=== PATIENT | female | born 1940 | race Caucasian/White ===

== ENCOUNTER 2017-12-13 10:26 | Inpatient (IN) | payer OTHER ==
[2017-12-13] MEDS ORDERED: NA CHLORIDE 0.9% 1,000 ML ONE (12:08)
[2017-12-13] MEDS ORDERED: ONDANSETRON 4 MG/2 ML VIAL ONE (12:08)
[2017-12-13] MEDS ORDERED: FAMOTIDINE 20 MG/2 ML VIAL IV ONE (12:08)
[2017-12-13 12:11] LABS: Absolute Lymphocytes (CBC) 1.5 K/uL (0.7-4.9); Absolute Monocytes 0.4 K/uL (0.1-1.3); Absolute Neutrophil 4.4 K/uL (1.8-8.0); Basophils % 0.7 % (0-1.3); Eosinophils % 0.7 % (0-4.4); Hematocrit 41.3 % (36.0-45.0); Lymphocytes % 23.5 % (15.3-44.8); MCH 30.1 pg (27.0-35.0); MCV 90.4 fL (80-100); MPV 9.6 fL (7.6-11.3); Monocytes % 6.8 % (3.3-12.3); RBC Red Blood Cell Count 4.56 M/uL (3.86-4.86)
[2017-12-13 12:15] LABS: Protime INR 0.98
[2017-12-13 12:37] LABS: ALT/SGPT 18 U/L (12-78); AST/SGOT 32 U/L (15-37); Albumin 3.6 g/dL (3.4-5.0); Alkaline Phosphatase 109 U/L (45-117); BUN Blood Urea Nitrogen 20 mg/dL (7-18); Bicarbonate 27 mmol/L (21-32); Bilirubin Direct 0.3 mg/dL (0-0.2); Bilirubin Total 1.2 mg/dL (0.2-1.0); CKMB Creatine Kinase MB < 1.0 ng/mL (0.3-3.6); Creatine Phosphokinase 76 U/L (26-192); Glucose Level 78 mg/dL (74-106); Lipase 324 U/L (73-393); Magnesium 1.9 mg/dL (1.8-2.4); NT PRO-BNP 127 pg/mL (<450); Potassium 3.3 mmol/L (3.5-5.1); Protein, Total 7.3 g/dL (6.4-8.2); Sodium Level 142 mmol/L (136-145)
--- NOTE | 2017-12-13 12:37 | ER ---
Nurse's Notes [facility] Name: Hadley Landaverde Age: 77 yrs Sex: Female : 1940 Arrival Date: 12/13/2017 Time: 10:29 Bed 14 Private MD: out of town, doctor Diagnosis: Vomiting;Weakness;Cystitis;Diarrhea, unspecified;Hypokalemia;Type 2 diabetes mellitus Presentation: 12/13 11:02 Presenting complaint: Patient states: been having this problem for 6 weeks now, nausea, hj no appetite and constipation, went to my PCP, was RTx with stool kit, it didn't help, still having loss of appetite and now with weakness;. Transition of care: patient was not received from another setting of care. Onset of symptoms was December 13, 2017. Risk Assessment: Do you want to hurt yourself or someone else? Patient reports no desire to harm self or others. Initial Sepsis Screen: Does the patient meet any 2 criteria? No. Patient's initial sepsis screen is negative. Does the patient have a suspected source of infection? No. Patient's initial sepsis screen is negative. Care prior to arrival: None. 11:02 Method Of Arrival: Ambulatory 11:02 Acuity: RACHEL 3 hj Triage Assessment: 11:04 General: Appears in no apparent distress. uncomfortable, Behavior is calm, cooperative, hj appropriate for age. Pain: Denies pain. Historical: - Allergies: 11:04 No Known Allergies; hj - Home Meds: 11:04 Unable to obtain [Active]; hj - PMHx: 11:04 allergies; Diabetes - NIDDM; Gout; Hypertension; hj - PSHx: 11:04 Cholecystectomy; Hysterectomy; hj - Immunization history:: Adult Immunizations up to date. - Social history:: Smoking status: Patient/guardian denies using tobacco, Patient/guardian denies using alcohol. - Ebola Screening: : Patient negative for fever greater than or equal to 101.5 degrees Fahrenheit, and additional compatible Ebola Virus Disease symptoms Patient denies exposure to infectious person Patient denies travel to an Ebola-affected area in the 21 days before illness onset. Screenin:04 Abuse screen: Denies threats or abuse. Denies injuries from another. Nutritional hj screening: No deficits noted. Tuberculosis screening: No symptoms or risk factors identified. Fall Risk None identified. Assessment: 11:00 General: Appears in no apparent distress. uncomfortable, Behavior is calm, cooperative, jl7 appropriate for age. Pain: Complains of pain in abdomen Pain does not radiate. Pain currently is 1 out of 10 on a pain scale. Quality of pain is described as "Sore" Pain began 6 weeks ago Is continuous. Neuro: Level of Consciousness is awake, alert, obeys commands, Oriented to person, place, time, situation. Cardiovascular: Heart tones S1 S2 present Patient's skin is warm and dry. Respiratory: Airway is patent Respiratory effort is even, unlabored, Respiratory pattern is regular, symmetrical, Breath sounds are clear bilaterally. Denies shortness of breath. GI: Abdomen is flat, non-distended, Bowel sounds present X 4 quads. Abd is soft X 4 quads Abdomen is tender to palpation X 4 quads. Reports nausea, vomiting, since 1 week. GI: Reports diarrhea, since 6 weeks. Pt's son reports "She had diarrhea for about a month then we took her to the doctor. They gave us a stool kit. Since then she has only had one episode of diarrhea." Pt reports "I've lost 30 pounds in the last 6 weeks.". : No signs and/or symptoms were reported regarding the genitourinary system. EENT: No signs and/or symptoms were reported regarding the EENT system. Derm: Skin is pink, warm \\T\\ dry. 12:00 Reassessment: No changes from previously documented assessment. Patient and/or family jl7 updated on plan of care and expected duration. Pain level reassessed. Patient is alert, oriented x 3, equal unlabored respirations, skin warm/dry/pink. 12:55 Reassessment: Pt finished drinking oral contrast, CT notified. jl7 14:00 Reassessment: Patient and/or family updated on plan of care and expected duration. Pain jl7 level reassessed. Patient is alert, oriented x 3, equal unlabored respirations, skin warm/dry/pink. 15:00 Reassessment: Patient and/or family updated on plan of care and expected duration. Pain jl7 level reassessed. Patient is alert, oriented x 3, equal unlabored respirations, skin warm/dry/pink. 16:06 Reassessment: nurse Rodrigue will call me back to receive the report. mg2 Vital Signs: 11:05 BP 145 / 119; Pulse 88; Resp 18; Temp 98.1(TE); Pulse Ox 98% on R/A; Weight 61.23 kg; hj Height 5 ft. 6 in. (167.64 cm); Pain 0/10; 12:09 BP 159 / 84; Pulse 72; Resp 16; Pulse Ox 98% ; jl7 14:18 BP 157 / 81; Pulse 78; Resp 12; Pulse Ox 97% on R/A; mh5 15:22 BP 150 / 75; Pulse 72; Resp 18; Pulse Ox 97% on R/A; mh5 11:05 Body Mass Index 21.79 (61.23 kg, 167.64 cm) hj ED Course: 10:29 Patient arrived in ED. mr 10:29 out of town, doctor is Private Physician. mr 10:52 Robin Salcido MD is Attending Physician. patria 11:03 Triage completed. hj 11:05 Arm band placed on right wrist. hj 11:05 Patient has correct armband on for positive identification. Placed in gown. Bed in low hj position. Call light in reach. Side rails up X 1. Adult w/ patient. 11:29 Benjie Alicea RN is Primary Nurse. jl7 11:30 Initial lab(s) drawn, by mn, sent to lab. Urine collected: clean catch specimen, jl7 cloudy, tea colored. Inserted saline lock: 22 gauge in left antecubital area, using aseptic technique. Blood collected. 12:29 X-ray completed. Portable x-ray completed in exam room. Patient tolerated procedure sw well. 12:30 XRAY Chest (1 view) In Process Unspecified. EDMS 12:36 Heidi Wagner MD is Hospitalizing Provider. [facility] 13:30 Inserted saline lock: 24 gauge in left hand, using aseptic technique. jl7 13:31 EKG done, by dynamics ax technical architect. reviewed by Robin Salcido MD. at1 15:05 Report given to BRAYAN Carrion. jl7 15:35 Primary Nurse role handed off by Benjie Alicea RN jl7 15:37 Murali Alvarenga RN is Primary Nurse. [facility] 16:35 No provider procedures requiring assistance completed. Patient admitted, IV remains in mg2 place. 17:07 Assisted to bathroom. Cleaned of incontinence. mg2 Administered Medications: 12:15 Drug: NS 0.9% 1000 ml Route: IV; Rate: 1 bolus; Site: left antecubital; 15:01 Follow up: IV Status: Completed infusion jl7 12:16 Drug: Zofran 4 mg Route: IVP; Site: left antecubital; 12:50 Follow up: Response: No adverse reaction; Nausea is decreased jl7 12:19 Drug: Pepcid 20 mg Route: IVP; Site: left antecubital; 12:50 Follow up: Response: No adverse reaction jl7 12:40 Not Given (Duplicate Order): NS 0.9% 1000 ml IV at 125 ml/hr continuous patria 13:02 Drug: Rocephin - (cefTRIAXone) 1 grams Route: IVPB; Infused Over: 30 mins; Site: left jl7 antecubital; 13:04 Follow up: IV Status: Completed infusion jl7 13:30 Follow up: Response: No adverse reaction jl7 13:13 Drug: NS 0.9% with KCl 20 mEq/L 1000 ml Route: IV; Rate: 125 ml/hr; Site: left jl7 antecubital; Outcome: 12:37 Decision to Hospitalize by Provider. patria 16:34 Admitted to Med/surg accompanied by tech, via stretcher, room 212, with chart, Report mg2 called to BRAYAN Husain 16:34 Condition: stable 16:34 Instructed on the need for admit, Demonstrated understanding of instructions. 17:08 Patient left the ED. mg2 Signatures: Dispatcher [employer] EDMS Hetal Gomez, RN Robin Gar ch, MD MD cha Rivera, Maria mr gonzales, Amanda, vocational education professional EKG Tat1 Cindy Nugent Henry RN Chanell Noland Jahala, RN RN jl7 Muarli Alvarenga RN RN mg2
--- NOTE | 2017-12-13 12:37 | EDPHYS ---
Physician Documentation [facility] Name: Hadley Landaverde Age: 77 yrs Sex: Female : 1940 Arrival Date: 12/13/2017 Time: 10:29 Bed 14 Private MD: out of town, doctor ED Physician Robin Salcido HPI: 12/13 11:56 This 77 yrs old Female presents to ER via Ambulatory with complaints of patria Weakness. 11:56 The patient presents to the emergency department with weakness of the. patria Historical: - Allergies: 11:04 No Known Allergies; hj - Home Meds: 11:04 Unable to obtain [Active]; hj - PMHx: 11:04 allergies; Diabetes - NIDDM; Gout; Hypertension; hj - PSHx: 11:04 Cholecystectomy; Hysterectomy; hj - Immunization history:: Adult Immunizations up to date. - Social history:: Smoking status: Patient/guardian denies using tobacco, Patient/guardian denies using alcohol. - Ebola Screening: : Patient negative for fever greater than or equal to 101.5 degrees Fahrenheit, and additional compatible Ebola Virus Disease symptoms Patient denies exposure to infectious person Patient denies travel to an Ebola-affected area in the 21 days before illness onset. ROS: 11:59 Constitutional: Negative for fever, chills, and weight loss, Eyes: Negative for injury, patria pain, redness, and discharge, ENT: Negative for injury, pain, and discharge, Neck: Negative for injury, pain, and swelling, Cardiovascular: Negative for chest pain, palpitations, and edema, Respiratory: Negative for shortness of breath, cough, wheezing, and pleuritic chest pain, Back: Negative for injury and pain, : Negative for injury, bleeding, discharge, and swelling, MS/Extremity: Negative for injury and deformity, Skin: Negative for injury, rash, and discoloration, Psych: Negative for depression, anxiety, suicide ideation, homicidal ideation, and hallucinations, Allergy/Immunology: Negative for hives, rash, and allergies, Endocrine: Negative for neck swelling, polydipsia, polyuria, polyphagia, and marked weight changes. 11:59 Abdomen/GI: Positive for abdominal pain, nausea and vomiting, diarrhea. 11:59 Neuro: Positive for weakness. Exam: 11:59 Constitutional: This is a well developed, well nourished patient who is awake, alert, patria and in no acute distress. Head/Face: Normocephalic, atraumatic. Eyes: Pupils equal round and reactive to light, extra-ocular motions intact. Lids and lashes normal. Conjunctiva and sclera are non-icteric and not injected. Cornea within normal limits. Periorbital areas with no swelling, redness, or edema. ENT: Nares patent. No nasal discharge, no septal abnormalities noted. Tympanic membranes are normal and external auditory canals are clear. Oropharynx with no redness, swelling, or masses, exudates, or evidence of obstruction, uvula midline. Mucous membranes moist. Neck: Trachea midline, no thyromegaly or masses palpated, and no cervical lymphadenopathy. Supple, full range of motion without nuchal rigidity, or vertebral point tenderness. No Meningismus. Chest/axilla: Normal chest wall appearance and motion. Nontender with no deformity. No lesions are appreciated. Cardiovascular: Regular rate and rhythm with a normal S1 and S2. No gallops, murmurs, or rubs. Normal PMI, no JVD. No pulse deficits. Respiratory: Lungs have equal breath sounds bilaterally, clear to auscultation and percussion. No rales, rhonchi or wheezes noted. No increased work of breathing, no retractions or nasal flaring. Back: No spinal tenderness. No costovertebral tenderness. Full range of motion. Female : Normal external genitalia. Skin: Warm, dry with normal turgor. Normal color with no rashes, no lesions, and no evidence of cellulitis. MS/ Extremity: Pulses equal, no cyanosis. Neurovascular intact. Full, normal range of motion. Neuro: Awake and alert, GCS 15, oriented to person, place, time, and situation. Cranial nerves II-XII grossly intact. Motor strength 5/5 in all extremities. Sensory grossly intact. Cerebellar exam normal. Normal gait. Psych: Awake, alert, with orientation to person, place and time. Behavior, mood, and affect are within normal limits. 11:59 Abdomen/GI: Inspection: abdomen appears normal, Bowel sounds: hyperactive, Palpation: mild abdominal tenderness, in all quadrants, Liver: no appreciated palpable abnormalities, Hernia: not appreciated. Vital Signs: 11:05 BP 145 / 119; Pulse 88; Resp 18; Temp 98.1(TE); Pulse Ox 98% on R/A; Weight 61.23 kg; hj Height 5 ft. 6 in. (167.64 cm); Pain 0/10; 12:09 BP 159 / 84; Pulse 72; Resp 16; Pulse Ox 98% ; jl7 14:18 BP 157 / 81; Pulse 78; Resp 12; Pulse Ox 97% on R/A; mh5 15:22 BP 150 / 75; Pulse 72; Resp 18; Pulse Ox 97% on R/A; mh5 11:05 Body Mass Index 21.79 (61.23 kg, 167.64 cm) hj MDM: 10:52 Patient medically screened. [facility] 12:01 Data reviewed: vital signs, nurses notes, lab test result(s), EKG, radiologic studies. [facility] 12/13 11:54 Order name: Basic Metabolic Panel; Complete Time: 12:43 [facility] 12/13 11:54 Order name: CBC with Diff; Complete Time: 12:26 [facility] 12/13 11:54 Order name: Ckmb; Complete Time: 12:43 [facility] 12/13 11:54 Order name: CPK; Complete Time: 12:43 [facility] 12/13 11:54 Order name: LFT's; Complete Time: 12:43 [facility] 12/13 11:54 Order name: Magnesium; Complete Time: 12:43 [facility] 12/13 11:54 Order name: NT PRO-BNP; Complete Time: 12:43 [facility] 12/13 11:54 Order name: PT-INR; Complete Time: 12:26 [facility] 12/13 11:54 Order name: Ptt, Activated; Complete Time: 12:26 [facility] 12/13 11:54 Order name: Troponin (emerg Dept Use Only); Complete Time: 12:33 [facility] 12/13 11:54 Order name: Lipase; Complete Time: 12:43 [facility] 12/13 11:54 Order name: Urine Culture [facility] 12/13 11:57 Order name: Stool Culture [facility] 12/13 11:57 Order name: Fecal Leukocyte Stain [facility] 12/13 11:54 Order name: XRAY Chest (1 view); Complete Time: 13:09 [facility] 12/13 11:54 Order name: EKG; Complete Time: 11:55 [facility] 12/13 11:54 Order name: Cardiac monitoring; Complete Time: 12:24 [facility] 12/13 11:54 Order name: EKG - Nurse/Tech; Complete Time: 12:24 [facility] 12/13 11:54 Order name: IV Saline Lock; Complete Time: 12:24 patria 12/13 11:54 Order name: Labs collected and sent; Complete Time: 12:24 patria 12/13 11:54 Order name: CT Abd/Pelvis - W/Contrast [facility] 12/13 11:57 Order name: CDIFF [facility] 12/13 12:26 Order name: Urine Dipstick--Ancillary (enter results); Complete Time: 13:09 12/13 14:52 Order name: CT; Complete Time: 16:50 EDMS 12/13 11:54 Order name: O2 Per Protocol; Complete Time: 12:24 patria 12/13 11:54 Order name: O2 Sat Monitoring; Complete Time: 12:24 [facility] 12/13 11:54 Order name: Urine Dipstick-Ancillary (obtain specimen); Complete Time: 12:24 [facility] 12/13 12:41 Order name: Vital Signs; Complete Time: 13:00 [facility] Administered Medications: 12:15 Drug: NS 0.9% 1000 ml Route: IV; Rate: 1 bolus; Site: left antecubital; ch 15:01 Follow up: IV Status: Completed infusion jl7 12:16 Drug: Zofran 4 mg Route: IVP; Site: left antecubital; ch 12:50 Follow up: Response: No adverse reaction; Nausea is decreased jl7 12:19 Drug: Pepcid 20 mg Route: IVP; Site: left antecubital; ch 12:50 Follow up: Response: No adverse reaction jl7 12:40 Not Given (Duplicate Order): NS 0.9% 1000 ml IV at 125 ml/hr continuous [facility] 13:02 Drug: Rocephin - (cefTRIAXone) 1 grams Route: IVPB; Infused Over: 30 mins; Site: left jl7 antecubital; 13:04 Follow up: IV Status: Completed infusion jl7 13:30 Follow up: Response: No adverse reaction jl7 13:13 Drug: NS 0.9% with KCl 20 mEq/L 1000 ml Route: IV; Rate: 125 ml/hr; Site: left jl7 antecubital; Disposition: 12/13/17 12:37 Hospitalization ordered by Heidi Wagner for Inpatient Admission. Preliminary diagnosis are Vomiting, Weakness, Cystitis, Diarrhea, unspecified, Hypokalemia, Type 2 diabetes mellitus. - Bed requested for Telemetry/MedSurg (Inpatient). - Status is Inpatient Admission. mg2 - Condition is Stable. - Problem is new. - Symptoms have improved. UTI on Admission? Yes Signatures: Dispatcher [employer] EDMS Hetal Gomez, RN RN Robin Bee MD MD cha Gallardo, Ana ag Joaquin, Henry, RN RN hj Benjie Alicea RN RN jl7 Murali Alvarenga RN RN mg2 Corrections: (The following items were deleted from the chart) 12:40 12:37 Hospitalization Ordered by Heidi Wagner MD for Inpatient Admission. Preliminary patria diagnosis is Vomiting; Weakness; Cystitis; Diarrhea, unspecified. Bed requested for Telemetry/MedSurg (Inpatient). Status is Inpatient Admission. Condition is Stable. Problem is new. Symptoms have improved. UTI on Admission? Yes. [facility] 12:42 12:40 12/13/2017 12:37 Hospitalization Ordered by Heidi Wagner MD for Inpatient patria Admission. Preliminary diagnosis is Vomiting; Weakness; Cystitis; Diarrhea, unspecified; Hypokalemia. Bed requested for Telemetry/MedSurg (Inpatient). Status is Inpatient Admission. Condition is Stable. Problem is new. Symptoms have improved. UTI on Admission? Yes. [facility] 15:17 12:42 12/13/2017 12:37 Hospitalization Ordered by Heidi Wagner MD for Inpatient ag Admission. Preliminary diagnosis is Vomiting; Weakness; Cystitis; Diarrhea, unspecified; Hypokalemia; Type 2 diabetes mellitus. Bed requested for Telemetry/MedSurg (Inpatient). Status is Inpatient Admission. Condition is Stable. Problem is new. Symptoms have improved. UTI on Admission? Yes. [facility] 17:08 15:17 12/13/2017 12:37 Hospitalization Ordered by Heidi Wagner MD for Inpatient mg2 Admission. Preliminary diagnosis is Vomiting; Weakness; Cystitis; Diarrhea, unspecified; Hypokalemia; Type 2 diabetes mellitus. Bed requested for Telemetry/MedSurg (Inpatient). Status is Inpatient Admission. Condition is Stable. Problem is new. Symptoms have improved. UTI on Admission? Yes. ag
[2017-12-13 12:53] LABS: Urine Blood 1+ (NEG); Urine Glucose NEGATIVE (NEG); Urine Protein 2+ (NEG)
--- NOTE | 2017-12-13 12:53 | RAD REPORT ---
EXAM DESCRIPTION: Priya Single View12/13/2017 12:31 pm CLINICAL HISTORY: Cough COMPARISON: 2007 FINDINGS: The lungs appear clear of acute infiltrate. The heart is normal size IMPRESSION: No acute abnormalities displayed
[2017-12-13] MEDS ORDERED: CEFTRIAXONE/SWI 1gm 1 GM/10 ML SYR ONE (13:06)
[2017-12-13] MEDS ORDERED: NS KCL 20MEQ 1,000 ML IV ONE (13:06)
[2017-12-13] MEDS ORDERED: ACETAMINOPHEN 500 MG TAB PO PRN (14:11)
--- NOTE | 2017-12-13 14:52 | RAD REPORT ---
EXAM DESCRIPTION: CTAbdomen Pelvis W Contrast - 12/13/2017 2:40 pm CLINICAL HISTORY: Abdominal pain. ABD PAIN COMPARISON: No comparisons TECHNIQUE: Biphasic CT imaging of the abdomen and pelvis was performed with 100 ml non-ionic IV cont rast. All CT scans are performed using dose optimization technique as appropriate and may include automated exposure control or mA/KV adjustment according to patient size. FINDINGS: The lung bases are clear. The liver, spleen, pancreas, adrenal glands and kidneys are within normal limits. Cholecystectomy cli ps. No bowel obstruction, free air, free fluid or abscess. Prominent sigmoid diverticulosis coli is prese nt without diverticulitis. The appendix is normal. No evidence of significant lymphadenopathy. Prominent lumbosacral degenerative changes. Small bilateral fat containing inguinal hernias. IMPRESSION: Prominent sigmoid diverticulosis coli without diverticulitis.
--- NOTE | 2017-12-13 15:34 | EKG ---
Test Date: 2017-12-13 Test Time: 13:14:49 Hotel Maid: MARTHA MEASUREMENT RESULTS: Intervals: Rate: 75 MO: 176 QRSD: 100 QT: 390 QTc: 435 [place]: P: 69 MO: 176 QRS: -48 T: 58 INTERPRETIVE STATEMENTS: Normal sinus rhythm Left axis deviation Abnormal ECG Compared to ECG 06/30/2016 00:34:25 Sinus bradycardia no longer present Left ventricular hypertrophy no longer present Electronically Signed On 12-13-17 15:33:23 CDT by Perez Wolfe
[2017-12-13] MEDS ORDERED: GLUCAGON 1 MG/VIAL IM PRN (16:23)
[2017-12-13] MEDS ORDERED: D50W 25 GM/50 ML SYRINGE IV PRN (16:23)
[2017-12-13] MEDS: INSULIN -REGULAR HUMAN 50 UNIT/0.5 ML ML SQ SCH ×2 (17:00→21:00)
[2017-12-13 17:30] VITALS: BMI 21.7
[2017-12-13] MEDS: NA CHLORIDE 0.9% 1,000 ML IV SCH (18:11)
[2017-12-13] MEDS: ENOXAPARIN 40 MG/0.4 ML SQ SCH (18:11)
--- NOTE | 2017-12-13 20:31 | HP ---
Date of Admission: 12/13/2017 Primary Care Physician: Out of town in [place]. Chief Complaint: Generalized weakness, nausea, vomiting. History Of Present Illness: The patient is a 77-year-old female with past medical history of hypertension, hyperlipidemia, diabetes, gout, who was in her usual state of health until 3 weeks prior to admission when the patient had sudden onset of nausea, vomiting, generalized weakness with decreased p.o. intake for the past several weeks. The patient also reports weight loss over the past 3 weeks of approximately 35 pounds, which was unintentional. The patient does report some diarrhea on and off. The patient symptoms were constant, moderate, progressively worsening. Denies any travel outside the country, unusual foods or well water. The patient did report that 2 weeks prior to admission, she had gotten bitten by fire ants and was treated with topical medications by her home health agency and her primary care physician. The patient denies any alleviating or aggravating factors. Comes into the ER for further evaluation. Upon arrival, her vital signs were stable. Her blood pressure was 145/119. She was afebrile. Her workup revealed hypokalemia. White count was normal. Her UA was positive. The patient was referred for admission for generalized weakness. When seen in the ER, she was awake, alert, oriented x3, in some mild distress. Past Medical History: Hypertension, hyperlipidemia, gout, diabetes mellitus type 2, non-insulin requiring. Surgical History: Right knee surgery. According to the ER records, she has also had hysterectomy and cholecystectomy. Allergies: THE PATIENT CANNOT REMEMBER HER ALLERGIES. WE WILL REVIEW HER PREVIOUS RECORD. Medications: As per medication reconciliation list, reviewed. Family History: The patient denies any history of diabetes, hypertension, or premature coronary artery disease in her family. Social History: The patient denies any tobacco use, alcohol use, or illicit drug use. The patient lives at home alone. Does use a walker. Her is in assisted living. Review of Systems: An 11-point system reviewed, negative except as per HPI. Physical Examination: Vital signs: Blood pressure 145/119, pulse 88, respirations 18, temperature 98.1, O2 98% on room air. General: Awake, alert, oriented x3. Elderly female, ill-appearing, in some mild distress. HEENT: Normocephalic, atraumatic. PERRLA. EOMI. Dry mucous membranes. Oropharynx is clear. Conjunctiva anicteric. Neck: Supple. No JVD. Trachea midline. CV: S1, S2. No murmurs. Regular rate and rhythm. Peripheral pulses are present. Respiratory: Clear to auscultation bilaterally. No wheezing. No stridor. No use of accessory muscles. Gastrointestinal: Abdomen is soft, nontender, nondistended. Positive bowel sounds. No guarding or rigidity. Extremities: No clubbing, cyanosis, or edema. Skin: The patient has chronic venous stasis changes of the lower extremity. Neuro: Cranial nerves 2-12 intact grossly. No focal neurological deficit. Speech is normal. Sensation is intact to light touch. Psych: Mood is okay. Affect is full. Insight and judgment are good. Laboratory Data: UA shows 1+ blood, positive nitrite, 3+ leukocyte esterase. Sodium 142, potassium 3.3, chloride 101, CO2 27, BUN 20, creatinine 1.10, glucose 78, calcium 9.5, magnesium 1.9, total bilirubin 1.2, albumin 3.6. Troponin less than 0.02. Lipase 324. INR 0.98. WBC 6.5, H and H 13.7, 41.3. Platelets 109. Chest x-ray shows no acute abnormalities, personally reviewed. EKG normal sinus rhythm, rate of 75. Assessment And Plan: A 77-year-old female with: 1. Generalized weakness. 2. Intractable nausea and vomiting. 3. Hypokalemia. 4. Diarrhea. 5. Unintentional weight loss. 6. Essential hypertension, uncontrolled. 7. Hyperlipidemia. 8. Diabetes mellitus type 2, noninsulin dependent with hyperglycemia. We will start on sliding scale insulin. 9. Gout. 10. Gastrointestinal and deep venous thrombosis prophylaxis with PPI and Lovenox. Plan: Admit the patient to [facility], place as observation. Code status: full. No MPOA or living will SA/NERI Voice ID: [id number]
[2017-12-13] MEDS ORDERED: MELATONIN 5 MG TABLET PO PRN (22:07)
[2017-12-14] MEDS: NA CHLORIDE 0.9% 1,000 ML IV SCH (04:20)
[2017-12-14 05:44] LABS: Absolute Monocytes 0.5 K/uL (0.1-1.3); Absolute Neutrophil 3.7 K/uL (1.8-8.0); Basophils % 0.6 % (0-1.3); Eosinophils % 1.7 % (0-4.4); Hematocrit 34.3 % (36.0-45.0); Lymphocytes % 31.4 % (15.3-44.8); MCH 30.1 pg (27.0-35.0); MCV 89.1 fL (80-100); MPV 9.3 fL (7.6-11.3); Monocytes % 7.8 % (3.3-12.3); RBC Red Blood Cell Count 3.84 M/uL (3.86-4.86)
[2017-12-14 06:06] LABS: Albumin 2.9 g/dL (3.4-5.0); Bilirubin Total 0.7 mg/dL (0.2-1.0); Protein, Total 5.5 g/dL (6.4-8.2)
[2017-12-14 06:08] LABS: Potassium 2.9 mmol/L (3.5-5.1)
[2017-12-14 06:40] LABS: Blood Morphology Comment NOTED (NOT SEEN); Burr Cells 3+; Platelet Estimate DECR; Urine White Blood Cell Casts OK
[2017-12-14] MEDS ORDERED: MELATONIN 5 MG TABLET PO PRN (07:22)
[2017-12-14] MEDS: INSULIN -REGULAR HUMAN 50 UNIT/0.5 ML ML SQ SCH ×4 (07:30→21:00)
[2017-12-14] MEDS: KCL 20 MEQ/100 mL IVPB 20 MEQ/100 ML BAG IV SCH ×3 (07:52→14:00)
[2017-12-14] MEDS ORDERED: METOPROLOL TAR 50 MG TAB PO SCH (09:00)
[2017-12-14] MEDS ORDERED: LISINOPRIL 10 MG TAB PO SCH (09:00)
[2017-12-14] MEDS ORDERED: LEVOTHYROXINE SOD 0.112 MG TAB PO SCH (09:00)
[2017-12-14] MEDS: ENOXAPARIN 40 MG/0.4 ML SQ SCH (09:00)
[2017-12-14 09:18] LABS: Ferritin 534.5 ng/mL (8-388); Transferrin 142 mg/dL (200-360)
[2017-12-14] MEDS: CYANOCOBALAMIN 1,000 MCG TAB PO SCH (10:07)
[2017-12-14] MEDS: VITAMIN D 1000 UNIT TAB PO SCH (10:10)
[2017-12-14] MEDS: ASPIRIN EC 81 MG TAB PO SCH (10:11)
[2017-12-14] MEDS: ALLOPURINOL 100 MG TAB PO SCH (10:13)
[2017-12-14] MEDS: ONDANSETRON 4 MG/2 ML VIAL IV PRN (10:27)
--- NOTE | 2017-12-14 13:54 | P.PN ---
Subjective Date of Service: 12/14/17 Primary Care Provider: Dr. Colvin([place], [place]) Chief Complaint: Diarrhea vomiting Subjective: Improving Physical Examination - Vital Signs Temperature: 97.8 F Blood Pressure: 145/77 Pulse: 72 Respirations: 18 Pulse Ox (%): 99 - Physical Exam General: Alert, In no apparent distress, Oriented x3, Cooperative HEENT: Atraumatic Neck: Supple Respiratory: Clear to auscultation bilaterally, Normal air movement Cardiovascular: Normal pulses, Regular rate/rhythm Gastrointestinal: Normal bowel sounds, Soft and benign, Non-distended, No tenderness, No masses, No rebound, No guarding Musculoskeletal: No erythema, No tenderness, No warmth Integumentary: No tenderness/swelling, No erythema, No warmth, No cyanosis Neurological: Normal speech, Normal strength at 5/5 x4 extr, Normal tone - Studies Medications List Reviewed: Yes Assessment & Plan - Problems (Diagnosis) (1) Nausea & vomiting Current Visit: Yes Status: Acute Plan: Encourage ambulation. Will advance diet as tolerated. Patient may require home health and physical therapy verses skilled placement. Case discussed with patient and family. Patient to decide on placement by tomorrow. She prefers to go home. Patient with UTI. Urine culture pending. Will check diarrhea for C diff. Qualifiers: Vomiting type: unspecified Vomiting Intractability: unspecified Qualified Code(s): R11.2 - Nausea with vomiting, unspecified (2) Diarrhea Current Visit: Yes Status: Acute Plan: Will check for C diff. Will monitor closely. Will provide lactobacillus. Qualifiers: Diarrhea type: unspecified type Qualified Code(s): R19.7 - Diarrhea, unspecified (3) Gastroenteritis Current Visit: Yes Status: Suspected Plan: Gastroenteritis. Will continue with hydration. Encourage ambulation. Patient also being treated for UTI. (4) Hypertension Current Visit: Yes Status: Chronic Plan: Continue home medication. Qualifiers: Hypertension type: essential hypertension Qualified Code(s): I10 - Essential (primary) hypertension (5) GERD (gastroesophageal reflux disease) Current Visit: Yes Status: Suspected Plan: Will provide medication. Qualifiers: Esophagitis presence: esophagitis presence not specified Qualified Code(s) : K21.9 - Gastro-esophageal reflux disease without esophagitis (6) Hypothyroidism Current Visit: Yes Status: Chronic Plan: Continue home medication Qualifiers: Hypothyroidism type: unspecified Qualified Code(s): E03.9 - Hypothyroidism , unspecified (7) Anemia Current Visit: Yes Status: Acute Plan: Likely from dehydration. Will continue to monitor. Qualifiers: Anemia type: unspecified type Qualified Code(s): D64.9 - Anemia, unspecified Discharge Plan: Home Plan to discharge in: 24 Hours - Code Status/Comfort Care Code Status Assessed: Yes (Patient full code.) Time Spent Managing Pts Care (In Minutes): 55
[2017-12-14] MEDS ORDERED: NA CHLORIDE 0.9% 500 ML ONE (15:28)
[2017-12-14] MEDS ORDERED: NA CHLORIDE 0.9% 1,000 ML IV SCH (16:00)
[2017-12-14] MEDS: D5 0.9 NS 1,000 ML IV SCH (16:55)
[2017-12-14] MEDS ORDERED: CEFTRIAXONE/SWI 1gm 1 GM/10 ML SYR IV SCH (17:00)
--- NOTE | 2017-12-14 19:05 | RAD REPORT ---
EXAM DESCRIPTION: CT - Head Brain Wo Cont - 12/14/2017 6:55 pm CLINICAL HISTORY: Alteration of consciousness/memory loss COMPARISON: June 2016 TECHNIQUE: Computed axial tomography of the head was obtained. IV contrast was not requested. All CT scans are performed using dose optimization technique as appropriate and may include automated exposure control or mA/KV adjustment according to patient size. FINDINGS: An intracranial bleed is not seen . The ventricles are normal in caliber. No extra-axial fluid collection is noted.. Fluid within the sinuses/ mastoids is not seen. IMPRESSION: No acute intracranial abnormality is seen. If patient's symptoms persist MRI of the bra in would be recommended.
[2017-12-14 20:56] LABS: Potassium 3.5 mmol/L (3.5-5.1)
[2017-12-14] MEDS: ENSURE HIGH PROTEIN 237 ML CAN PO SCH (21:00)
[2017-12-14] MEDS: ATORVASTATIN 40 MG TAB PO SCH (21:58)
[2017-12-14] MEDS: LISINOPRIL 10 MG TAB PO SCH (21:58)
[2017-12-14] MEDS: LACTOBACILLUS/ACIDOPHILUS TAB PO SCH (21:59)
[2017-12-15] MEDS: D5 0.9 NS 1,000 ML IV SCH (02:51)
[2017-12-15 05:59] LABS: Absolute Lymphocytes (CBC) 1.7 K/uL (0.7-4.9); Absolute Monocytes 0.5 K/uL (0.1-1.3); Absolute Neutrophil 3.4 K/uL (1.8-8.0); Basophils % 0.4 % (0-1.3); Eosinophils % 2.8 % (0-4.4); Hematocrit 35.1 % (36.0-45.0); MCH 30.6 pg (27.0-35.0); MCV 90.9 fL (80-100); RBC Red Blood Cell Count 3.87 M/uL (3.86-4.86)
[2017-12-15 06:17] LABS: Magnesium 1.5 mg/dL (1.8-2.4); Potassium 3.2 mmol/L (3.5-5.1)
[2017-12-15] MEDS ORDERED: Magnesium Sulfate 2gm IVPB 2 G/50 ML BAG IV ONE (06:27)
[2017-12-15] MEDS: LEVOTHYROXINE SOD 0.112 MG TAB PO SCH (06:40)
[2017-12-15] MEDS: INSULIN -REGULAR HUMAN 50 UNIT/0.5 ML ML SQ SCH ×4 (07:30→21:00)
[2017-12-15] MEDS: KCL 20 MEQ/100 mL IVPB 20 MEQ/100 ML BAG IV SCH ×4 (07:39→22:01)
--- NOTE | 2017-12-15 08:54 | P.PN ---
Subjective Date of Service: 12/15/17 Primary Care Provider: Dr. Colvin([place], [place]) Chief Complaint: Diarrhea vomiting Subjective: Improving (Patient feels better. Diarrhea improved.) Physical Examination - Vital Signs Temperature: 96.3 F Blood Pressure: 135/63 Pulse: 54 Respirations: 18 Pulse Ox (%): 100 - Physical Exam General: Alert, In no apparent distress, Oriented x3, Cooperative HEENT: Atraumatic Neck: Supple Respiratory: Clear to auscultation bilaterally, Normal air movement Cardiovascular: Normal pulses, Regular rate/rhythm Gastrointestinal: Normal bowel sounds, Soft and benign, Non-distended, No tenderness, No masses, No rebound, No guarding Musculoskeletal: No erythema, No tenderness, No warmth Neurological: Normal speech, Normal strength at 5/5 x4 extr, Normal tone, Normal affect - Studies Microbiology Data (last 24 hrs): 12/13/17 12:00 Clean Catch Urine [place] Count - Final >100,000 CFU/ML. 12/13/17 12:00 Clean Catch Urine - Final Escherichia Coli Medications List Reviewed: Yes Assessment & Plan - Problems (Diagnosis) (1) Nausea & vomiting Onset Date: 12/15/17 Current Visit: Yes Status: Acute Plan: Patient feels better overall. Medications adjusted yesterday. Patient given a more IV fluids. Nausea and vomiting resolved. Will advance diet. Encourage ambulation. Recommend skilled placement. Patient is agreeable to this. Patient with UTI. Will transition IV antibiotic to oral-Augmentin. Spoke with cardiology. No need for intervention at this time. Agree with changes in medication. Cardiology recommends to discontinue Lasix at discharge. Qualifiers: Vomiting type: unspecified Vomiting Intractability: unspecified Qualified Code(s): R11.2 - Nausea with vomiting, unspecified (2) Diarrhea Onset Date: 12/15/17 Current Visit: Yes Status: Acute Plan: C diff culture negative. Will provide lactobacillus. Overall improved. Continue IV fluids and hydration. Encourage oral intake. Qualifiers: Diarrhea type: unspecified type Qualified Code(s): R19.7 - Diarrhea, unspecified (3) Gastroenteritis Onset Date: 12/15/17 Current Visit: Yes Status: Suspected Plan: Gastroenteritis. Will continue with IV fluid hydration. Encourage oral intake. (4) Hypertension Onset Date: 12/15/17 Current Visit: Yes Status: Chronic Plan: Medications adjusted yesterday. Will continue to monitor and adjust appropriately. Qualifiers: Hypertension type: essential hypertension Qualified Code(s): I10 - Essential (primary) hypertension (5) GERD (gastroesophageal reflux disease) Onset Date: 12/15/17 Current Visit: Yes Status: Suspected Plan: Will provide medication. Qualifiers: Esophagitis presence: esophagitis presence not specified Qualified Code(s) : K21.9 - Gastro-esophageal reflux disease without esophagitis (6) Hypothyroidism Onset Date: 12/15/17 Current Visit: Yes Status: Chronic Plan: Continue home medication Qualifiers: Hypothyroidism type: unspecified Qualified Code(s): E03.9 - Hypothyroidism , unspecified (7) Anemia Onset Date: 12/15/17 Current Visit: Yes Status: Acute Plan: Likely from dehydration. Will continue to monitor. Qualifiers: Anemia type: unspecified type Qualified Code(s): D64.9 - Anemia, unspecified (8) Bradycardia Current Visit: Yes Status: Acute Plan: Medications adjusted yesterday. Beta-naun discontinued. Lisinopril increased. Case discussed with cardiology. No intervention needed at this time. (9) Pre-syncope Current Visit: Yes Status: Acute Plan: CT head unremarkable. Likely from dehydration. Patient also had been on Lasix. Cardiology recommends to discontinue Lasix at discharge. Patient also with UTI. Continue antibiotic treatment. Continue IV fluids and adjustment of electrolytes. Recommend skilled placement. Patient is agreeable to this. (10) Hypokalemia Current Visit: Yes Status: Acute Plan: Continue to monitor and replace appropriately. Replacement protocol in place. (11) Dehydration Current Visit: Yes Status: Acute Plan: Continue with IV fluids. Encourage oral intake. (12) UTI (urinary tract infection) Current Visit: Yes Status: Acute Plan: Urine culture positive for E coli. Will transition IV antibiotic therapy to oral. Qualifiers: Urinary tract infection type: site unspecified Hematuria presence: without hematuria Qualified Code(s): N39.0 - Urinary tract infection, site not specified (13) Renal insufficiency Current Visit: Yes Status: Acute Plan: Likely from dehydration and recent diuretic use. Continue with above recommendation. Discharge Plan: Other (Skilled placement) Plan to discharge in: 24 Hours Time Spent Managing Pts Care (In Minutes): 55
[2017-12-15] MEDS ORDERED: CEFTRIAXONE 1 GM/NS 50 ML 1 GM/50 ML BAG IV SCH (09:00)
[2017-12-15] MEDS: ENSURE HIGH PROTEIN 237 ML CAN PO SCH ×2 (09:00→20:20)
[2017-12-15] MEDS: ENOXAPARIN 40 MG/0.4 ML SQ SCH (09:33)
[2017-12-15] MEDS: CYANOCOBALAMIN 1,000 MCG TAB PO SCH (09:34)
[2017-12-15] MEDS: ASPIRIN EC 81 MG TAB PO SCH (09:34)
[2017-12-15] MEDS: ALLOPURINOL 100 MG TAB PO SCH (09:34)
[2017-12-15] MEDS: AMOX/K CLAV 500 MG TAB PO SCH ×2 (09:34→20:20)
[2017-12-15] MEDS: VITAMIN D 1000 UNIT TAB PO SCH (09:34)
[2017-12-15] MEDS: LACTOBACILLUS/ACIDOPHILUS TAB PO SCH ×3 (09:34→20:19)
[2017-12-15] MEDS: LISINOPRIL 10 MG TAB PO SCH ×2 (09:35→20:21)
[2017-12-15] MEDS: D5 0.45 NS 1,000 ML IV SCH ×2 (09:36→20:18)
--- NOTE | 2017-12-15 10:54 | CON ---
Date of Consultation: 12/15/[address] Cardenas on 12/13/2017. I saw the patient on 12/15/2017. Reason For Consultation: Bradycardia. History Of Present Illness: Mrs. Landaverde is a 77-year-old white woman without any past cardiac hi story. She has a history of diabetes, hypertension, hypothyroidism, and gout. Has been having nause a, vomiting, diarrhea, could not keep anything down for few days, came in with weakness and was found to be hypokalemic and was noted to be bradycardic at least one episode, and I was consulted. Her EK G now shows sinus rhythm with left axis deviation. Chest x-ray is negative. All her laboratory eval uation were negative, except for the potassium of 2.8. CT of her head was negative. She sees Dr. Boyce. She denied palpitations or syncope. Denied any chest pain, shortness of breath. Allergies: SHE IS ALLERGIC TO SULFA. Review of Systems: Negative. Social History: Negative for tobacco, alcohol, or drugs. Family History: Positive for diabetes and hypertension. Medications: At home include aspirin, metoprolol, potassium, Lipitor, Lasix, lisinopril, thyroid, an d allopurinol. Physical Examination: General: She is very pleasant, no acute distress. Vital Signs: Stable. Sinus rhythm. Afebrile. HEENT: Negative. Neck: Supple with no bruit, lymphadenopathy, JVD, or thyromegaly. Chest: Clear to auscultation and percussion. Cardiac: Revealed a regular rhythm and rate with aortic sclerosis murmur. No gallops or rubs. Abdomen: Benign. Extremities: Revealed no clubbing, cyanosis, or edema. Diagnostic Data: As stated earlier. Impression And Plan: 1.Bradycardia, probably secondary to hypokalemia. Her hypokalemia secondary to taking furosemide de spite having vomiting and diarrhea. She stated that she was started taking Lasix in the past after s he was bitten by fire ants and had swelling for many days and she has not stopped that medicine since . She needs to stop her furosemide and only take it as needed. She is to continue her other medicat ions including lisinopril and metoprolol for her blood pressure. An echocardiogram is pending, make sure we are not missing any cardiomyopathy, but I doubt this is the case. Mrs. Landaverde certainly is not having any significant bradycardia at this point. Her potassium needs to be supplemented. 2.Diabetes. 3.Hypertension, well controlled. 4.Gout. 5.Hypothyroidism. If Mrs. Landaverde's echo is normal, she can go home whenever it is okay with Dr. Cardenas. She needs to be hydrated, have her potassium supplemented, and have her Lasix and potassium held at home after she goes home if her potassium gets corrected. ALYCIA/NERI Voice ID: [id number] Report ID: [id number]
--- NOTE | 2017-12-15 12:38 | ECHO ---
HEIGHT: 5 ft 6 in WEIGHT: 135 lb 0 oz DATE OF STUDY: 12/15/[address]: Deandre Cardenas DO 2-DIMENSIONAL: YES M.MODE: YES DOPPLER: YES COLOR FLOW: YES TDS: PORTABLE: DEFINITY: BUBBLE STUDY: DIAGNOSIS: PRESYNCOPE, HYPERTENSION CARDIAC HISTORY: CATHERIZATION: NO SURGERY: NO PROSTHETIC VALVE: NO PACEMAKER: NO MEASUREMENTS (cm) DIASTOLIC (NORMALS) SYSTOLIC (NORMALS) IVSd 0.8 (0.6-1.2) LA Diam 2.9 (1.9-4.0) LVEF 57% LVIDd 3.4 (3.5-5.7) LVIDs 2.4 (2.0-3.5) %FS 29% LVPWd 0.9 (0.6-1.2) Ao Diam 2.5 (2.0-3.7) 2 DIMENSIONAL ASSESSMENT: RIGHT ATRIUM: NORMAL LEFT ATRIUM: NORMAL RIGHT VENTRICLE: NORMAL LEFT VENTRICLE: NORMAL TRICUSPID VALVE: NORMAL MITRAL VALVE: NORMAL PULMONIC VALVE: NORMAL AORTIC VALVE: NORMAL PERICARDIAL EFFUSION: NONE AORTIC ROOT: NORMAL LEFT VENTRICULAR WALL MOTION: NORMAL DOPPLER/COLOR FLOW: MILD MITRAL REGURGITATION AND TRICUSPID REGURGITATION. NORMAL RIGHT VENTRICULAR SYSTOLIC PRESSURE. COMMENTS: NORMAL TWO DIMENSIONAL ECHOCARDIOGRAM. MILD MITRAL REGURGITATION AND TRICUSPID REGURGITATION TECHNOLOGIST: DEVI GALARZA
[2017-12-15] MEDS: ONDANSETRON 4 MG/2 ML VIAL IV PRN ×2 (14:35→21:57)
[2017-12-15] MEDS: ATORVASTATIN 40 MG TAB PO SCH (20:19)
[2017-12-16 01:59] VITALS: O2SAT 95
[2017-12-16 05:23] LABS: Absolute Lymphocytes (CBC) 1.4 K/uL (0.7-4.9); Absolute Monocytes 0.4 K/uL (0.1-1.3); Absolute Neutrophil 2.5 K/uL (1.8-8.0); Basophils % 0.6 % (0-1.3); Eosinophils % 2.5 % (0-4.4); Lymphocytes % 30.7 % (15.3-44.8); MCH 31.7 pg (27.0-35.0); MCV 89.1 fL (80-100); MPV 10.1 fL (7.6-11.3); Monocytes % 9.2 % (3.3-12.3); RBC Red Blood Cell Count 3.37 M/uL (3.86-4.86)
[2017-12-16 05:44] LABS: Magnesium 1.8 mg/dL (1.8-2.4); Potassium 3.6 mmol/L (3.5-5.1)
[2017-12-16] MEDS ORDERED: MAGNESIUM SULFATE 1 gm IVPB 1 GM/100 ML BAG IV ONE (06:11)
[2017-12-16] MEDS ORDERED: LOPERAMIDE HCL 2 MG CAPSULE PO PRN (06:49)
[2017-12-16] MEDS: D5 0.45 NS 1,000 ML IV SCH (06:59)
[2017-12-16] MEDS ORDERED: KCL 20 MEQ/100 mL IVPB 20 MEQ/100 ML BAG IV SCH (07:00)
[2017-12-16] MEDS: INSULIN -REGULAR HUMAN 50 UNIT/0.5 ML ML SQ SCH ×2 (07:30→11:14)
[2017-12-16 08:07] VITALS: BP 186/78; TEMP 97.7
[2017-12-16] MEDS: LEVOTHYROXINE SOD 0.112 MG TAB PO SCH (08:22)
[2017-12-16] MEDS: ASPIRIN EC 81 MG TAB PO SCH (08:22)
[2017-12-16] MEDS: AMOX/K CLAV 500 MG TAB PO SCH (08:22)
[2017-12-16] MEDS: ENSURE HIGH PROTEIN 237 ML CAN PO SCH (08:22)
[2017-12-16] MEDS: LACTOBACILLUS/ACIDOPHILUS TAB PO SCH (08:22)
[2017-12-16] MEDS: ENOXAPARIN 40 MG/0.4 ML SQ SCH (08:23)
[2017-12-16] MEDS: LISINOPRIL 10 MG TAB PO SCH (08:23)
[2017-12-16] MEDS: VITAMIN D 1000 UNIT TAB PO SCH (08:23)
[2017-12-16] MEDS: CYANOCOBALAMIN 1,000 MCG TAB PO SCH (08:23)
[2017-12-16] MEDS: ALLOPURINOL 100 MG TAB PO SCH (08:23)
[2017-12-16] MEDS: ONDANSETRON 4 MG/2 ML VIAL IV PRN (09:07)
--- NOTE | 2017-12-16 09:45 | P.PN ---
Subjective Date of Service: 12/16/17 Primary Care Provider: Dr. Colvin([place], [place]) Chief Complaint: Diarrhea vomiting Subjective: Improving (Doing well. Patient ambulating well. Diarrhea almost resolved.) Physical Examination - Vital Signs Temperature: 97.7 F Blood Pressure: 186/78 Pulse: 67 Respirations: 16 Pulse Ox (%): 100 - Physical Exam General: Alert, In no apparent distress, Oriented x3, Cooperative HEENT: Atraumatic Neck: Supple Respiratory: Clear to auscultation bilaterally, Normal air movement Cardiovascular: Normal pulses, Regular rate/rhythm Gastrointestinal: Normal bowel sounds, Soft and benign, Non-distended, No tenderness, No masses, No rebound, No guarding Musculoskeletal: No erythema, No tenderness, No warmth Integumentary: No tenderness/swelling, No erythema, No warmth, No cyanosis Neurological: Normal speech, Normal strength at 5/5 x4 extr, Normal tone, Normal affect - Studies Microbiology Data (last 24 hrs): 12/13/17 12:00 Clean Catch Urine [place] Count - Final >100,000 CFU/ML. 12/13/17 12:00 Clean Catch Urine - Final Escherichia Coli Medications List Reviewed: Yes Assessment & Plan - Problems (Diagnosis) (1) Nausea & vomiting Onset Date: 12/15/17 Current Visit: Yes Status: Acute Plan: This has resolved. Patient may have underlying GERD. Will continue with Protonix. Patient found to have UTI. Urine culture positive for E coli. Will continue with Augmentin 500 mg twice daily for 7 days. Echocardiogram unremarkable. No need for Lasix at discharge. Await transfer to skilled facility for rehabilitation. Qualifiers: Vomiting type: unspecified Vomiting Intractability: unspecified Qualified Code(s): R11.2 - Nausea with vomiting, unspecified (2) Diarrhea Onset Date: 12/15/17 Current Visit: Yes Status: Acute Plan: C diff culture negative. This appears resolved. Will continue with lactobacillus. Recommendation for the patient to see GI as an outpatient to further evaluate. Patient will need endoscopy evaluation. Qualifiers: Diarrhea type: unspecified type Qualified Code(s): R19.7 - Diarrhea, unspecified (3) Gastroenteritis Onset Date: 12/15/17 Current Visit: Yes Status: Suspected Plan: Overall resolved. Continue with Protonix 40 mg daily. Recommendation for the patient to follow up with GI as an outpatient. Patient may require EGD in the future. (4) Hypertension Onset Date: 12/15/17 Current Visit: Yes Status: Chronic Plan: Continue to adjust lisinopril to 20 mg twice daily. No need for Lasix or diuretic therapy. Qualifiers: Hypertension type: essential hypertension Qualified Code(s): I10 - Essential (primary) hypertension (5) GERD (gastroesophageal reflux disease) Onset Date: 12/15/17 Current Visit: Yes Status: Suspected Plan: Will continue with Protonix 40 mg daily. Recommendation for the patient to see GI as an outpatient to further assess. Qualifiers: Esophagitis presence: esophagitis presence not specified Qualified Code(s) : K21.9 - Gastro-esophageal reflux disease without esophagitis (6) Hypothyroidism Onset Date: 12/15/17 Current Visit: Yes Status: Chronic Plan: Continue home medication Qualifiers: Hypothyroidism type: unspecified Qualified Code(s): E03.9 - Hypothyroidism , unspecified (7) Anemia Onset Date: 12/15/17 Current Visit: Yes Status: Acute Plan: Patient found to have B12 deficiency. Will continue with medication. This can be monitored as an outpatient. Qualifiers: Anemia type: B12 deficiency Vitamin B12 deficiency anemia type: unspecified B12 deficiency Qualified Code(s): D51.9 - Vitamin B12 deficiency anemia, unspecified (8) Bradycardia Current Visit: Yes Status: Acute Plan: Medications adjusted yesterday. Beta-naun discontinued. Lisinopril increased. Case discussed with cardiology. No intervention needed at this time. (9) Pre-syncope Current Visit: Yes Status: Acute Plan: CT head unremarkable. Likely from dehydration. Patient also had been on Lasix. Cardiology recommends to discontinue Lasix at discharge. Patient also with UTI. Continue antibiotic treatment. Await placement to skilled facility. (10) Hypokalemia Current Visit: Yes Status: Acute Plan: Continue to monitor and replace appropriately. Replacement protocol in place. (11) Dehydration Current Visit: Yes Status: Acute Plan: Continue with IV fluids. Encourage oral intake. Overall resolved. (12) UTI (urinary tract infection) Current Visit: Yes Status: Acute Plan: Urine culture positive for E coli. Continue with Augmentin for 7 days Qualifiers: Urinary tract infection type: site unspecified Hematuria presence: without hematuria Qualified Code(s): N39.0 - Urinary tract infection, site not specified (13) Renal insufficiency Current Visit: Yes Status: Acute Plan: Likely from dehydration and recent diuretic use. Resolved. Discharge Plan: Other (Skilled placement) Plan to discharge in: 24 Hours Time Spent Managing Pts Care (In Minutes): 55
--- NOTE | 2017-12-16 09:58 | P.DS ---
Admission Date: 12/13/17 Discharge Date: 12/16/17 Primary Care Provider: Dr. Colvin([place], [place]) Disposition: TRANSFER TO SNF - MEDICAL Discharge Condition: GOOD Reason for Admission: Diarrhea vomiting Consultations: Cardiology-Dr. Wolfe Procedures: CT scan: COMPARISON: No comparisons TECHNIQUE: Biphasic CT imaging of the abdomen and pelvis was performed with 100 ml non-ionic IV contrast. All CT scans are performed using dose optimization technique as appropriate and may include automated exposure control or mA/KV adjustment according to patient size. FINDINGS: The lung bases are clear. The liver, spleen, pancreas, adrenal glands and kidneys are within normal limits. Cholecystectomy clips. No bowel obstruction, free air, free fluid or abscess. Prominent sigmoid diverticulosis coli is present without diverticulitis. The appendix is normal. No evidence of significant lymphadenopathy. Prominent lumbosacral degenerative changes. Small bilateral fat containing inguinal hernias. IMPRESSION: Prominent sigmoid diverticulosis coli without diverticulitis. - Problems (1) Nausea & vomiting Onset Date: 12/15/17 Current Visit: Yes Status: Acute Qualifiers: Vomiting type: unspecified Vomiting Intractability: unspecified Qualified Code(s): R11.2 - Nausea with vomiting, unspecified (2) Diarrhea Onset Date: 12/15/17 Current Visit: Yes Status: Acute Qualifiers: Diarrhea type: unspecified type Qualified Code(s): R19.7 - Diarrhea, unspecified (3) Gastroenteritis Onset Date: 12/15/17 Current Visit: Yes Status: Suspected (4) Hypertension Onset Date: 12/15/17 Current Visit: Yes Status: Chronic Qualifiers: Hypertension type: essential hypertension Qualified Code(s): I10 - Essential (primary) hypertension (5) GERD (gastroesophageal reflux disease) Onset Date: 12/15/17 Current Visit: Yes Status: Suspected Qualifiers: Esophagitis presence: esophagitis presence not specified Qualified Code(s) : K21.9 - Gastro-esophageal reflux disease without esophagitis (6) Hypothyroidism Onset Date: 12/15/17 Current Visit: Yes Status: Chronic Qualifiers: Hypothyroidism type: unspecified Qualified Code(s): E03.9 - Hypothyroidism , unspecified (7) Anemia Onset Date: 12/15/17 Current Visit: Yes Status: Acute Qualifiers: Anemia type: B12 deficiency Vitamin B12 deficiency anemia type: unspecified B12 deficiency Qualified Code(s): D51.9 - Vitamin B12 deficiency anemia, unspecified (8) Bradycardia Current Visit: Yes Status: Acute (9) Pre-syncope Current Visit: Yes Status: Acute (10) Hypokalemia Current Visit: Yes Status: Acute (11) Dehydration Current Visit: Yes Status: Acute (12) UTI (urinary tract infection) Current Visit: Yes Status: Acute Qualifiers: Urinary tract infection type: site unspecified Hematuria presence: without hematuria Qualified Code(s): N39.0 - Urinary tract infection, site not specified (13) Renal insufficiency Current Visit: Yes Status: Acute (14) Diverticulosis Current Visit: Yes Status: Chronic Qualifiers: Diverticulosis site: diverticulosis of large intestine Diverticulosis bleeding: diverticulosis without bleeding Qualified Code(s): K57.30 - Diverticulosis of large intestine without perforation or abscess without bleeding (15) Thrombocytopenia Current Visit: Yes Status: Acute (16) Gout Current Visit: Yes Status: Chronic Qualifiers: Gout site: unspecified site Brief History of Present Illness: 77-year-old female presented emergency room with nausea, vomiting, weakness and poor oral intake. The patient reported some decreased appetite with weight loss. The patient was evaluated the emergency room. CT scan showed no acute infectious process. Patient had been taking Lasix as an outpatient. The patient was admitted for further evaluation. Patient appeared dehydrated. Patient received IV fluids. Hospital Course: Patient presented with weakness, nausea and vomiting and diarrhea. Patient was found to have a UTI. Urine culture positive for E coli. During this time. Patient appeared severely dehydrated. She did have a presyncopal episode after physical therapy. Patient was also noted to have some bradycardia at that time. The patient was evaluated by cardiology. Echocardiogram unremarkable with normal ejection fraction. It was found that the patient had been taking Lasix as an outpatient. Cardiology recommended no further intervention. Cardiology did recommend to discontinue Lasix at discharge. Since then the patient has improved with IV fluids. Diarrhea has resolved. C diff culture negative. CT scan did showed some diverticulosis but no diverticulitis. Patient also suspected in having some possible GERD. At discharge patient will be sent to skilled facility continue rehabilitation. At discharge for her UTI she will continue with Augmentin 500 mg 1 pill twice daily for 7 days. Recommendation for UTI prevention. Recommendation to recheck urine culture after 1 week to monitor resolution. This can be further monitored closely as an outpatient. Diarrhea has resolved. C diff culture negative. Patient may continue with lactobacillus 3 times a day. Patient also found to have diverticulosis without diverticulitis. Recommendation is for the patient follow up with GI as an outpatient to further assess. Patient may require endoscopy evaluation in 4-6 weeks. Patient likely has GERD. Patient will continue with Protonix 40 mg 1 pill once daily. Recommendation for the patient follow up with GI as an outpatient to further assess. Patient may require a EGD. As mentioned above patient had no further presyncope episode. Bradycardia resolved after adjustment in blood pressure medication. Cardiology recommends no Lasix at discharge. Ejection fraction within normal range. No CHF identified. Patient has hypertension. Medications have been adjusted. Recommendation to discontinue beta-naun at this time. Patient will continue with lisinopril 20 mg 1 pill twice daily. Recommendation to maintain blood pressures less 150/80. Hold blood pressure medication if blood pressure systolic less than 120. Further adjustment can be done by her PCP. Patient has hypothyroidism. Patient will continue with Levoxyl 112 mcg daily. Patient has hyperlipidemia. Patient will continue with Lipitor 40 mg 1 pill once daily. Patient may continue with aspirin 81 mg daily. Patient was found to have B12 deficiency anemia. Recommendation to continue with B12 supplementation daily. Recommendation to recheck lab CBC in 1-2 weeks to monitor progress. Patient with thrombocytopenia likely from dehydration and acute stress related to UTI. Recommendation to recheck CBC in 1-2 weeks to monitor progress. Patient has gout. Patient continue with allopurinol 100 mg daily. Patient had electrolyte abnormalities due to dehydration and diarrhea. This has resolved. Recommendation to recheck BMP in 1 week to monitor progress. Vital Signs/Physical Exam: Temp Pulse Resp BP Pulse Ox 97.7 F 67 16 186/78 H 100 12/16/17 09:45 12/16/17 09:45 12/16/17 09:45 12/16/17 09:45 12/16/17 09:45 General: Alert, In no apparent distress, Oriented x3, Cooperative HEENT: Atraumatic Neck: Supple Respiratory: Clear to auscultation bilaterally, Normal air movement Cardiovascular: Normal pulses, Regular rate/rhythm Gastrointestinal: Normal bowel sounds, Soft and benign, Non-distended, No tenderness, No masses, No rebound, No guarding Musculoskeletal: No erythema, No tenderness, No warmth Integumentary: No tenderness/swelling, No erythema, No warmth, No cyanosis Neurological: Normal speech, Normal strength at 5/5 x4 extr, Normal tone, Normal affect Laboratory Data at Discharge: WBC 4.5 K/uL (4.3-10.9) D 12/16/17 04:27 Hgb 10.7 g/dL (12.0-15.0) L 12/16/17 04:27 Hct 30.0 % (36.0-45.0) L 12/16/17 04:27 Plt Count 84 K/uL (152-406) L 12/16/17 04:27 PT 11.6 SECONDS (9.5-12.5) 12/13/17 12:00 INR 0.98 12/13/17 12:00 APTT 19.9 SECONDS (24.3-36.9) L 12/13/17 12:00 Sodium 141 mmol/L (136-145) 12/16/17 04:27 Potassium 3.6 mmol/L (3.5-5.1) 12/16/17 04:27 BUN 4 mg/dL (7-18) L 12/16/17 04:27 Creatinine 0.70 mg/dL (0.55-1.3) 12/16/17 04:27 Glucose 119 mg/dL (74-106) H 12/16/17 04:27 Magnesium 1.8 mg/dL (1.8-2.4) 12/16/17 04:27 Total Bilirubin 0.7 mg/dL (0.2-1.0) 12/14/17 05:34 AST 21 U/L (15-37) 12/14/17 05:34 ALT 14 U/L (12-78) 12/14/17 05:34 Alkaline Phosphatase 85 U/L (45-117) 12/14/17 05:34 Lipase 324 U/L (73-393) 12/13/17 12:00 Home Medications: Allopurinol [Zyloprim*] 100 mg PO DAILY 12/13/17 Aspirin [Aspir-Low] 81 mg PO DAILY 12/13/17 Atorvastatin Calcium [Lipitor] 40 mg PO DAILY 12/13/17 Cholecalciferol (Vitamin D3) [Vitamin D3] 2,000 unit PO DAILY 12/13/17 Cyanocobalamin [Vitamin B-12*] 1,000 mcg PO DAILY 12/13/17 Levothyroxine [Synthroid*] 0.112 mcg PO DAILY 12/13/17 Amox/Clavulanate [Augmentin 500-125 mg Tab*] 500 mg PO BID #14 tab 12/16/17 Ensure High Protein 237 ml PO BID #60 can 12/16/17 Lactobacillus Acidophilus [Acidophilus Lactobacilli] 1 each PO BID #60 capsule 12/16/17 Lisinopril 20 mg PO BID #60 tablet 12/16/17 Loperamide [Imodium*] 2 mg PO Q4H PRN #10 cap 12/16/17 Pantoprazole [Protonix Tab*] 40 mg PO DAILYAC #30 tab 12/16/17 New Medications: Amox/Clavulanate [Augmentin 500-125 mg Tab*] 500 mg PO BID #14 tab Ensure High Protein 237 ml PO BID #60 can Lactobacillus Acidophilus [Acidophilus Lactobacilli] 1 each PO BID #60 capsule Lisinopril 20 mg PO BID #60 tablet Loperamide [Imodium*] 2 mg PO Q4H PRN #10 cap PRN Reason: Diarrhea Pantoprazole [Protonix Tab*] 40 mg PO DAILYAC #30 tab Patient Discharge Instructions: 1. Patient will go to skilled facility to continue rehabilitation. Patient will need a follow up with a PCP in 1 week to follow up this hospitalization. 2. Patient presented with weakness found to be dehydrated. UTI identified. Urine culture positive for E coli. Dehydration made have been related to diarrhea and recent diuretic use. At discharge she will continue with Augmentin 500 mg 1 pill twice daily for 7 days. UTI prevention will need to be enforced. Recommendation to recheck urine culture after 1 week to monitor resolution. 3. Patient evaluated by Cardiology for presyncope. This was likely related to recent diuretic use and severe dehydration. Cardiology recommends No need for diuretic therapy at discharge. 4. Patient likely had gastroenteritis. C diff culture negative. At discharge , Patient will continue with lactobacillus 1 pill twice daily. Patient also found to have diverticulosis without diverticulitis. Recommendation is for the patient to follow up with GI as an outpatient to further evaluate. Patient may require colonoscopy in 4-6 weeks to further assess. Patient will be given Imodium as needed for diarrhea. 5. Patient has hypertension. Medications adjusted. Patient had episode of bradycardia. Recommendation to discontinue metoprolol. At discharge, Patient to continue with lisinopril 20 mg 1 pill twice daily. Recommendation is to maintain blood pressures less 150/80. Further adjustment can be done by her PCP. No need for diuretic therapy. Blood pressure medication can be adjusted by her physician. 6. Recommendation on no diuretic therapy at discharge. Echocardiogram unremarkable with normal ejection fraction. No CHF noted. 7. Patient has hyperlipidemia. She will continue with Lipitor 40 mg 1 pill once daily. 8. Patient has hypothyroidism. Patient continue with Levoxyl 112 mcg daily. 9. Patient may have GERD. Patient will continue with Protonix 40 mg 1 pill once daily at discharge. Recommendation is for the patient follow up with GI as an outpatient to further evaluate. Patient may require EGD in the future. 10. Patient has B12 deficiency anemia. Patient will continue with B12 supplementation. Recommendation to recheck lab-CBC in 1-2 weeks to monitor progress. 11. Patient had thrombocytopenia likely reactive in nature related to UTI and stress from dehydration. Recommendation to recheck CBC in 1 week to monitor progress. 12. Patient encouraged to increase oral intake. Patient may require oral supplementation twice daily. 13. Patient has gout. Patient will continue with allopurinol 100 mg daily. Diet: AHA Activity: Fall precautions Time spent managing pt's care (in minutes): 55
[2017-12-16] MEDS ORDERED: LISINOPRIL 20 MG TAB PO SCH (21:00)
[2017-12-17] MEDS ORDERED: PANTOPRAZOLE 40MG TABLET PO SCH (06:30)
== END 2017-12-16 11:29 | DRG 690 ==
LOC: ER 10:26 → ERHOLD 12:38 → 2ND 16:33
PROVIDERS: ADMIT Family Medicine; ATTEND Family Medicine
DX: N39.0 Urinary tract infection, site not specified (principal); N28.9 Disorder of kidney and ureter, unspecified; K52.9 Noninfective gastroenteritis and colitis, unspecified; I10 Essential (primary) hypertension; K21.9 Gastro-esophageal reflux disease without esophagitis; E03.9 Hypothyroidism, unspecified; D51.9 Vitamin B12 deficiency anemia, unspecified; R00.1 Bradycardia, unspecified; E87.6 Hypokalemia; E86.0 Dehydration; E11.65 Type 2 diabetes mellitus with hyperglycemia; K57.30 Diverticulosis of large intestine without perforation or abscess without bleeding; D69.6 Thrombocytopenia, unspecified; M10.9 Gout, unspecified; B96.20 Unspecified Escherichia coli [E. coli] as the cause of diseases classified elsewhere; Z79.82 Long term (current) use of aspirin; T50.1X5A Adverse effect of loop [high-ceiling] diuretics, initial encounter; Y92.009 Unspecified place in unspecified non-institutional (private) residence as the place of occurrence of the external cause; Z88.2 Allergy status to sulfonamides
CPT/HCPCS: 36415; 70450; 71045; 74177; 80048; 80053; 80076; 81003; 82550; 82553; 82607; 82728; 82962; 83036; 83540; 83690; 83735; 83880; 84132; 84145; 84439; 84443; 84466; 84484; 85025; 85610; 85730; 87045; 87046; 87077; 87086; 87088; 87186; 87493; 89055; 93005; 93306; 94760; 96361; 96374; 96375; 97163; 99285; J0696; J1650; J2405; J3475; J7030; Q9967

== ENCOUNTER 2018-01-16 11:18 | Emergency (ER) | payer OTHER ==
[2018-01-16 12:25] LABS: Absolute Lymphocytes (CBC) 1.3 K/uL (0.7-4.9); Absolute Monocytes 0.4 K/uL (0.1-1.3); Absolute Neutrophil 3.2 K/uL (1.8-8.0); Basophils % 0.6 % (0-1.3); Hematocrit 33.4 % (36.0-45.0); Lymphocytes % 26.2 % (15.3-44.8); MCH 32.2 pg (27.0-35.0); MCV 93.6 fL (80-100); MPV 8.6 fL (7.6-11.3); Monocytes % 8.5 % (3.3-12.3); RBC Red Blood Cell Count 3.57 M/uL (3.86-4.86)
[2018-01-16 12:40] LABS: Albumin 2.8 g/dL (3.4-5.0); Bilirubin Direct 0.2 mg/dL (0-0.2); Bilirubin Total 0.9 mg/dL (0.2-1.0); Magnesium 1.7 mg/dL (1.8-2.4)
--- NOTE | 2018-01-16 12:53 | RAD REPORT ---
EXAM DESCRIPTION: CT - Head Brain Wo Cont - 01/16/2018 12:47 pm CLINICAL HISTORY: Dizziness, weakness, syncope, lethargy COMPARISON: CT study December 14 TECHNIQUE: Axial 5 mm thick images of the head were obtained without IV contrast. All CT scans are performed using dose optimization technique as appropriate and may include automated exposure control or mA/KV adjustment according to patient size. FINDINGS: No intracranial hemorrhage, mass, edema or shift of mid-line structures. No acute cortical based infarction. No abnormal extra-axial fluid collections. Patient has moderate severity atrophy a nd chronic ischemic change. Ventricular size is in proportion to volume loss. Intracranial findings a re similar to the prior study. Arterial and physiologic calcifications are present. Mastoid air cells and visualized portions of the paranasal sinuses are clear. No acute bony findings. IMPRESSION: No hemorrhage, mass or acute cortical based infarction. Moderate severity atrophy and chronic ischemic changes extending into the basal ganglia, thalamus and brainstem. Findings are similar to December 14 study. Chronic ischemic changes can mask nonhemorrhagic acute infarction. MR brain followup, when available , can be obtained if there is ongoing concern for acute ischemia.
--- NOTE | 2018-01-16 13:08 | RAD REPORT ---
EXAM DESCRIPTION: RAD - Chest Single View - 01/16/2018 1:03 pm CLINICAL HISTORY: MALAISE Chest pain. COMPARISON: Chest Single View dated 12/13/2017; CHEST SINGLE VIEW dated 01/11/2008 FINDINGS: Portable technique limits examination quality. The lungs are grossly clear. The heart is normal in size. No displaced fractures.Mild thoracic dextro scoliosis. IMPRESSION: No acute intrathoracic process suspected.
[2018-01-16] MEDS ORDERED: NA CHLORIDE 0.9% 1,000 ML ONE (13:11)
[2018-01-16] MEDS ORDERED: POTASSIUM 25 MEQ EFFERV TAB ONE (13:11)
[2018-01-16] MEDS ORDERED: MAGNESIUM SULFATE 1 gm IVPB 1 GM/100 ML BAG IV ONE (13:12)
--- NOTE | 2018-01-16 14:56 | ER ---
Nurse's Notes [facility] Name: Hadley Landaverde Age: 77 yrs Sex: Female : 1940 Arrival Date: 01/16/2018 Time: 11:21 Bed 8 Private MD: Diagnosis: Transient cerebral ischemic attacks and related syndromes Presentation: 01/16 11:22 Presenting complaint: EMS states: Became dizzy after PT. prison reported right hb pupil dilated and and pt became lethargic for approx 2 minutes. Upon arrival AOx4, PERRLA, NIH 0, BP 120/78 supine, 98/48 standing. BGL 178. Pt is at group home for abx for UTI. Transition of care: patient was received from another setting of care ([facility]. Onset of symptoms was January 16, 2018 at 10:25. Risk Assessment: Do you want to hurt yourself or someone else? Patient reports no desire to harm self or others. Initial Sepsis Screen: Does the patient meet any 2 criteria? No. Patient's initial sepsis screen is negative. Does the patient have a suspected source of infection? No. Patient's initial sepsis screen is negative. Care prior to arrival: Medication(s) given: Normal saline infusion, 200 ml IV initiated. 20 GA, in the right antecubital area, Glucose check: 178. 11:22 Method Of Arrival: EMS: [facility] hb 11:22 Acuity: RACHEL 3 hb Historical: - Allergies: 11:28 Sulfa (Sulfonamide Antibiotics); hb - PMHx: 11:28 allergies; Diabetes - NIDDM; Gout; Hypertension; Hypothyroidism; GERD; hb - PSHx: 11:28 Cholecystectomy; Hysterectomy; hb - Immunization history:: Adult Immunizations up to date. - Social history:: Smoking status: Patient/guardian denies using tobacco. - Ebola Screening: : No symptoms or risks identified at this time. Screenin:29 Abuse screen: Denies threats or abuse. Denies injuries from another. Nutritional hb screening: No deficits noted. Tuberculosis screening: No symptoms or risk factors identified. Fall Risk Total Alvarez Fall Scale indicates High Risk Score (45 or more points). Fall prevention measures have been instituted. Side Rails Up X 2 Frequent Obs/Assessments Occuring As available patient and family educated on Fall Prevention Program and Strategies. 15:00 Patient has been NPO before screening. The patient is alert, able to follow commands. hb The patient does not exhibit slurred or garbled speech The patient is not exhibiting difficulty speaking. The patient does not exhibit difficulty understanding words. The patient is able to swallow own secretions with no drooling or need for suction. Patient tolerated one teaspoon of water. No drooling, immediate coughing, gurgling, or clearing of the throat was noted. The patient tolerated 90mL of water. No drooling, immediate coughing, gurgling, or clearing of the throat was noted. The patient passed the bedside swallow screening. Oral medications may be given as ordered. Contact Physician for further diet orders. Assessment: 11:30 General: Appears in no apparent distress. Behavior is calm, cooperative. Pain: Denies hb pain. Neuro: Level of Consciousness is awake, alert, obeys commands, Oriented to person, place, time, situation, [employer]er are equal bilaterally Speech is normal, Facial symmetry appears normal, Pupils are PERRLA, Intact. Cardiovascular: Capillary refill < 3 seconds is > 3 seconds Patient's skin is warm and dry. Respiratory: Airway is patent Trachea midline Respiratory effort is even, unlabored, Respiratory pattern is regular, symmetrical, Breath sounds are clear bilaterally. GI: No signs and/or symptoms were reported involving the gastrointestinal system. : No signs and/or symptoms were reported regarding the genitourinary system. EENT: No signs and/or symptoms were reported regarding the EENT system. Derm: No signs and/or symptoms reported regarding the dermatologic system. Skin is intact, is healthy with good turgor, Skin is pink, warm \T\ dry. Musculoskeletal: No signs and/or symptoms reported regarding the musculoskeletal system. 12:30 Reassessment: Patient appears in no apparent distress at this time. Patient and/or hb family updated on plan of care and expected duration. Pain level reassessed. Patient is alert, oriented x 3, equal unlabored respirations, skin warm/dry/pink. 13:30 Reassessment: Patient appears in no apparent distress at this time. No changes from previously documented assessment. Patient and/or family updated on plan of care and expected duration. Pain level reassessed. Patient is alert, oriented x 3, equal unlabored respirations, skin warm/dry/pink. 14:30 Reassessment: Patient appears in no apparent distress at this time. No changes from hb previously documented assessment. Patient and/or family updated on plan of care and expected duration. Pain level reassessed. Patient is alert, oriented x 3, equal unlabored respirations, skin warm/dry/pink. 15:23 Reassessment: Patient appears in no apparent distress at this time. No changes from hb previously documented assessment. Patient and/or family updated on plan of care and expected duration. Pain level reassessed. Patient is alert, oriented x 3, equal unlabored respirations, skin warm/dry/pink. Transfer pending. 15:45 Reassessment: Report given to BRAYAN Daniel at [facility] [phone]. hb Vital Signs: 11:21 BP 154 / 79; Pulse 88; Resp 16; Temp 98.2; Pulse Ox 100% on R/A; Pain 0/10; hb 12:30 BP 148 / 78; Pulse 89; Resp 17; Pulse Ox 100% on R/A; hb 13:30 BP 154 / 74; Pulse 100; Resp 16; Pulse Ox 100% on R/A; hb 14:30 BP 147 / 70; Pulse 100; Resp 16; Temp 98.2; Pulse Ox 14% ; Pain 0/10; sg 15:23 BP 163 / 76; Pulse 98; Resp 16; Pulse Ox 100% on R/A; Pain 0/10; hb Centre Coma Score: 11:30 Eye Response: spontaneous(4). Verbal Response: oriented(5). Motor Response: obeys commands(6). Total: 15. 14:30 Eye Response: spontaneous(4). Verbal Response: oriented(5). Motor Response: obeys sg commands(6). Total: 15. NIH Stroke Scale Scores: 11:30 NIHSS Score: 0 hb 15:24 NIHSS Score: 0 gs ED Course: 11:21 Patient arrived in ED. hb 11:27 Triage completed. hb 11:29 Arm band placed on right wrist. EKG completed in triage. Results shown to MD. hb 11:30 Patient has correct armband on for positive identification. Placed in gown. Bed in low hb position. Call light in reach. Side rails up X2. director client services on. Pulse ox on. NIBP on. 11:30 Maintain EMS IV. Dressing intact. Good blood return noted. Site clean \T\ dry. Gauge \T\ hb site: 20g RIGHT AC. 11:36 Bryan Toledo MD is Attending Physician. gs 12:18 Blanca Guzmán, BRAYAN is Primary Nurse. hb 12:[address] sg 12:47 CT Head Brain wo Cont In Process Unspecified. EDMS 13:02 X-ray completed. Portable x-ray completed in exam room. Patient tolerated procedure jb2 well. 13:03 XRAY Chest (1 view) In Process Unspecified. EDMS 14:51 \T\1403 initiated transfer with Melinda at the [facility] to transfer eb the patient to the [facility]. / \T\1431 connected Cricket Peralta with Paris Mcdaniel for patient transfer consulation. \T\ 1437 Administrative Approval given by Melinda Mills. Pt going to [facility] report to be called to [phone]-. 15:45 No provider procedures requiring assistance completed. Patient transferred, IV remains hb in place. Administered Medications: 13:28 Drug: Potassium Effervescent Tablet 50 mEq Route: PO; hb 14:30 Follow up: Response: No adverse reaction hb 13:29 Drug: Magnesium Sulfate 1 grams Route: IVPB; Infused Over: 1 hrs; Site: right hb antecubital; 13:45 Follow up: IV Status: Completed infusion hb 13:29 Drug: NS 0.9% 1000 ml Route: IV; Rate: 1000 ml; Site: right antecubital; hb 14:30 Follow up: Response: No adverse reaction; IV Status: Completed infusion hb 15:00 Drug: Aspirin Chewable Tablet 324 mg Route: PO; sg 15:30 Follow up: Response: No adverse reaction hb Outcome: 14:56 ER care complete, transfer ordered by . gs 15:45 Transferred by ground EMS Note: [facility] 15:45 Condition: stable 15:45 Instructed on the need for transfer, Demonstrated understanding of instructions. 15:47 Patient left the ED. hb NIH Stroke Scale - NIH Stroke Score Date: 01/16/2018 Time: 11:30 Total Score = 0 1a. Level of Consciousness (LOC) - 0(Alert) 1b. Level of Consciousness (LOC) (Year \T\ Age) - 0(Both) 1c. LOC Commands (Open \T\ Closes Eyes/Treatment Manager) - 0(Both) 2. Best Gaze (Lateral Gaze Paresis) - 0(Normal) 3. Visual Field Loss - 0(No visual loss) 4. Facial Palsy - 0(Normal) 5a. Left Arm: Motor (10-second hold) - 0(No drift) 5b. Right Arm: Motor (10-second hold) - 0(No drift) 6a. Left Leg: Motor (5-second hold - always test supine) - 0(No drift) 6b. Right Leg: Motor (5-second hold - always test supine) - 0(No drift) 7. Limb Ataxia (finger/nose \T\ heel/blanton - test with eyes open) - 0(Absent) 8. Sensory Loss (pinprick arms/legs/face) - 0(Normal) 9. Best Language: Aphasia (description/naming/reading) - 0(No aphasia) 10. Dysarthria (speech clarity - read or repeat words) - 0(Normal) 11. Extinction and Inattention (visual/tactile/auditory/spatial/personal) - 0(No abnormality) Initials: NIH Stroke Scale - NIH Stroke Score Date: 01/16/2018 Time: 15:24 Total Score = 0 1a. Level of Consciousness (LOC) - 0(Alert) 1b. Level of Consciousness (LOC) (Year \T\ Age) - 0(Both) 1c. LOC Commands (Open \T\ Closes Eyes/Treatment Manager) - 0(Both) 2. Best Gaze (Lateral Gaze Paresis) - 0(Normal) 3. Visual Field Loss - 0(No visual loss) 4. Facial Palsy - 0(Normal) 5a. Left Arm: Motor (10-second hold) - 0(No drift) 5b. Right Arm: Motor (10-second hold) - 0(No drift) 6a. Left Leg: Motor (5-second hold - always test supine) - 0(No drift) 6b. Right Leg: Motor (5-second hold - always test supine) - 0(No drift) 7. Limb Ataxia (finger/nose \T\ heel/blanton - test with eyes open) - 0(Absent) 8. Sensory Loss (pinprick arms/legs/face) - 0(Normal) 9. Best Language: Aphasia (description/naming/reading) - 0(No aphasia) 10. Dysarthria (speech clarity - read or repeat words) - 0(Normal) 11. Extinction and Inattention (visual/tactile/auditory/spatial/personal) - 0(No abnormality) Initials: Signatures: Dispatcher [employer] EDTong Panda, RN RN Jasper Aranda jb2 Blanca Guzmán RN RN Bryan Toledo MD MD gs Botello, Elizabeth eb Corrections: (The following items were deleted from the chart) 11:30 11:22 Presenting complaint: EMS states: Became dizzy after PT. prison hb reported right pupil dilated and and pt became lethargic for approx 2 minutes. BP 120/78 supine, 98/48 standing. BGL 178. Pt is at group home for abx for UTI hb
--- NOTE | 2018-01-16 14:57 | EDPHYS ---
Physician Documentation [facility] Name: Hadley Landaverde Age: 77 yrs Sex: Female : 1940 Arrival Date: 01/16/2018 Time: 11:21 Bed 8 Private MD: ED Physician Bryan Toledo HPI: 01/16 15:24 This 77 yrs old Female presents to ER via EMS with complaints of Dizziness. gs 15:24 The patient presents with dizziness, syncope , possible sz acitivty. Onset: The gs symptoms/episode began/occurred acutely, just prior to arrival. Modifying factors: The symptoms are alleviated by nothing, the symptoms are aggravated by nothing. Associated signs and symptoms: Pertinent positives: confusion. Severity of symptoms: At their worst the symptoms were severe in the emergency department the symptoms have resolved. The patient has experienced similar episodes in the past, a few times. rehab facility for iv abx for uti. Historical: - Allergies: 11:28 Sulfa (Sulfonamide Antibiotics); hb - PMHx: 11:28 allergies; Diabetes - NIDDM; Gout; Hypertension; Hypothyroidism; GERD; hb - PSHx: 11:28 Cholecystectomy; Hysterectomy; hb - Immunization history:: Adult Immunizations up to date. - Social history:: Smoking status: Patient/guardian denies using tobacco. - Ebola Screening: : No symptoms or risks identified at this time. ROS: 15:24 All other systems are negative. gs Exam: 15:24 Head/Face: Normocephalic, atraumatic. Eyes: Pupils equal round and reactive to light, gs extra-ocular motions intact. Lids and lashes normal. Conjunctiva and sclera are non-icteric and not injected. Cornea within normal limits. Periorbital areas with no swelling, redness, or edema. ENT: Nares patent. No nasal discharge, no septal abnormalities noted. Tympanic membranes are normal and external auditory canals are clear. Oropharynx with no redness, swelling, or masses, exudates, or evidence of obstruction, uvula midline. Mucous membranes moist. Neck: Trachea midline, no thyromegaly or masses palpated, and no cervical lymphadenopathy. Supple, full range of motion without nuchal rigidity, or vertebral point tenderness. No Meningismus. Chest/axilla: Normal chest wall appearance and motion. Nontender with no deformity. No lesions are appreciated. Cardiovascular: Regular rate and rhythm with a normal S1 and S2. No gallops, murmurs, or rubs. Normal PMI, no JVD. No pulse deficits. Respiratory: Lungs have equal breath sounds bilaterally, clear to auscultation and percussion. No rales, rhonchi or wheezes noted. No increased work of breathing, no retractions or nasal flaring. Abdomen/GI: Soft, non-tender, with normal bowel sounds. No distension or tympany. No guarding or rebound. No evidence of tenderness throughout. Back: No spinal tenderness. No costovertebral tenderness. Full range of motion. Skin: Warm, dry with normal turgor. Normal color with no rashes, no lesions, and no evidence of cellulitis. MS/ Extremity: Pulses equal, no cyanosis. Neurovascular intact. Full, normal range of motion. 15:24 Constitutional: The patient appears alert, awake. 15:24 Neuro: Orientation: to person, place \T\ time. Cranial nerves: CN II- XII are normal as tested, Cerebellar function: normal finger to nose testing, Motor: moves all fours, strength is normal, Sensation: no obvious gross deficits. 15:41 ECG was reviewed by the Attending Physician. Vital Signs: 11:21 BP 154 / 79; Pulse 88; Resp 16; Temp 98.2; Pulse Ox 100% on R/A; Pain 0/10; hb 12:30 BP 148 / 78; Pulse 89; Resp 17; Pulse Ox 100% on R/A; hb 13:30 BP 154 / 74; Pulse 100; Resp 16; Pulse Ox 100% on R/A; hb 14:30 BP 147 / 70; Pulse 100; Resp 16; Temp 98.2; Pulse Ox 14% ; Pain 0/10; sg 15:23 BP 163 / 76; Pulse 98; Resp 16; Pulse Ox 100% on R/A; Pain 0/10; hb NIH Stroke Scale Scores: 11:30 NIHSS Score: 0 hb 15:24 NIHSS Score: 0 Sisi Coma Score: 11:30 Eye Response: spontaneous(4). Verbal Response: oriented(5). Motor Response: obeys hb commands(6). Total: 15. 14:30 Eye Response: spontaneous(4). Verbal Response: oriented(5). Motor Response: obeys sg commands(6). Total: 15. MDM: 11:51 Patient medically screened. 15:24 Differential diagnosis: cardiac arrhythmia, CVA, generalized weakness, TIA. Data reviewed: vital signs, nurses notes. ED course: no tpa symptoms completely resolved. 01/16 11:52 Order name: Basic Metabolic Panel; Complete Time: 12:41 01/16 11:52 Order name: CBC with Diff; Complete Time: 12:41 01/16 11:52 Order name: LFT's; Complete Time: 12:41 01/16 11:52 Order name: Magnesium; Complete Time: 12:41 01/16 11:52 Order name: NT PRO-BNP; Complete Time: 12:41 01/16 11:52 Order name: PT-INR; Complete Time: 12:41 01/16 11:52 Order name: Troponin (emerg Dept Use Only); Complete Time: 12:41 01/16 11:52 Order name: XRAY Chest (1 view); Complete Time: 13:16 01/16 11:52 Order name: EKG; Complete Time: 11:53 01/16 12:25 Order name: CT Head Brain wo Cont; Complete Time: 13:16 01/16 11:53 Order name: Cardiac monitoring; Complete Time: 13:03 01/16 11:53 Order name: EKG - Nurse/Tech; Complete Time: 13:03 01/16 11:53 Order name: IV Saline Lock; Complete Time: 13:03 01/16 11:53 Order name: Labs collected and sent; Complete Time: 13:03 01/16 11:53 Order name: O2 Per Protocol; Complete Time: 13:03 01/16 11:53 Order name: O2 Sat Monitoring; Complete Time: 13:03 EC:41 Rate is 97 beats/min. Rhythm is regular. [place] interval is normal. QRS interval is normal. gs T waves are Inverted. Clinical impression: NSR w/ Non-specific ST/T Changes. Interpreted by me. Administered Medications: 13:28 Drug: Potassium Effervescent Tablet 50 mEq Route: PO; hb 14:30 Follow up: Response: No adverse reaction hb 13:29 Drug: Magnesium Sulfate 1 grams Route: IVPB; Infused Over: 1 hrs; Site: right hb antecubital; 13:45 Follow up: IV Status: Completed infusion hb 13:29 Drug: NS 0.9% 1000 ml Route: IV; Rate: 1000 ml; Site: right antecubital; hb 14:30 Follow up: Response: No adverse reaction; IV Status: Completed infusion hb 15:00 Drug: Aspirin Chewable Tablet 324 mg Route: PO; sg 15:30 Follow up: Response: No adverse reaction hb Disposition: 01/16/18 14:56 Transfer ordered to Other Acute Care Facility. Diagnosis is Transient cerebral ischemic attacks and related syndromes. - Reason for transfer: Higher level of care. - Accepting physician is [facility]. - Condition is Stable. - Problem is new. - Symptoms have improved. Critical care time excluding procedures: 15:24 Critical care time: Bedside Care: 10 minutes, Consultation: 10 minutes, Family gs Intervention: 10 minutes. Total time: 30 minutes NIH Stroke Scale - NIH Stroke Score Date: 01/16/2018 Time: 11:30 Total Score = 0 1a. Level of Consciousness (LOC) - 0(Alert) 1b. Level of Consciousness (LOC) (Year \T\ Age) - 0(Both) 1c. LOC Commands (Open \T\ Closes Eyes/Coupon Redemption Clerk) - 0(Both) 2. Best Gaze (Lateral Gaze Paresis) - 0(Normal) 3. Visual Field Loss - 0(No visual loss) 4. Facial Palsy - 0(Normal) 5a. Left Arm: Motor (10-second hold) - 0(No drift) 5b. Right Arm: Motor (10-second hold) - 0(No drift) 6a. Left Leg: Motor (5-second hold - always test supine) - 0(No drift) 6b. Right Leg: Motor (5-second hold - always test supine) - 0(No drift) 7. Limb Ataxia (finger/nose \T\ heel/blanton - test with eyes open) - 0(Absent) 8. Sensory Loss (pinprick arms/legs/face) - 0(Normal) 9. Best Language: Aphasia (description/naming/reading) - 0(No aphasia) 10. Dysarthria (speech clarity - read or repeat words) - 0(Normal) 11. Extinction and Inattention (visual/tactile/auditory/spatial/personal) - 0(No abnormality) Initials: NIH Stroke Scale - NIH Stroke Score Date: 01/16/2018 Time: 15:24 Total Score = 0 1a. Level of Consciousness (LOC) - 0(Alert) 1b. Level of Consciousness (LOC) (Year \T\ Age) - 0(Both) 1c. LOC Commands (Open \T\ Closes Eyes/Coupon Redemption Clerk) - 0(Both) 2. Best Gaze (Lateral Gaze Paresis) - 0(Normal) 3. Visual Field Loss - 0(No visual loss) 4. Facial Palsy - 0(Normal) 5a. Left Arm: Motor (10-second hold) - 0(No drift) 5b. Right Arm: Motor (10-second hold) - 0(No drift) 6a. Left Leg: Motor (5-second hold - always test supine) - 0(No drift) 6b. Right Leg: Motor (5-second hold - always test supine) - 0(No drift) 7. Limb Ataxia (finger/nose \T\ heel/blanton - test with eyes open) - 0(Absent) 8. Sensory Loss (pinprick arms/legs/face) - 0(Normal) 9. Best Language: Aphasia (description/naming/reading) - 0(No aphasia) 10. Dysarthria (speech clarity - read or repeat words) - 0(Normal) 11. Extinction and Inattention (visual/tactile/auditory/spatial/personal) - 0(No abnormality) Initials: Signatures: Dispatcher [employer] EDTong Panda RN RN Blanca Guzmán RN RN Bryan Toledo MD MD Corrections: (The following items were deleted from the chart) 15:47 14:56 01/16/2018 14:56 Transfer ordered to Other Acute Care Facility. Diagnosis hb is Transient cerebral ischemic attacks and related syndromes. Reason for transfer: Higher level of care. Accepting physician is [facility]. Condition is Stable. Problem is new. Symptoms have improved. gs
[2018-01-16] MEDS ORDERED: ASPIRIN 81 MG CHEWABLE TABLET ONE (15:05)
[2018-01-16 15:54] VITALS: TEMP 98.2
[2018-01-16 15:59] VITALS: BP 163/76; O2SAT 100
--- NOTE | 2018-01-17 06:50 | EKG ---
Test Date: 2018-01-16 Test Time: 11:22:00 Executive Marketing Assistant: HOLLY MEASUREMENT RESULTS: Intervals: Rate: 97 MT: 156 QRSD: 92 QT: 380 QTc: 482 [place]: P: 66 MT: 156 QRS: -53 T: 82 INTERPRETIVE STATEMENTS: Normal sinus rhythm Left axis deviation Minimal voltage criteria for LVH, may be normal variant Septal infarct, age undetermined Abnormal ECG Compared to ECG 12/13/2017 13:14:49 Left ventricular hypertrophy now present Myocardial infarct finding now present Electronically Signed On 01-17-18 06:49:38 CDT by Julian Freedman
== END 2018-01-16 15:47 ==
LOC: ER 11:18
DX: G45.9 Transient cerebral ischemic attack, unspecified (principal); E11.9 Type 2 diabetes mellitus without complications; I10 Essential (primary) hypertension; E03.9 Hypothyroidism, unspecified; Z88.2 Allergy status to sulfonamides
CPT/HCPCS: 36415; 70450; 71045; 80048; 80076; 83735; 83880; 84484; 85025; 85610; 93005; J3475; J7030; 96361; 96365; 99285

== ENCOUNTER 2018-05-11 13:12 | Observation (INO) | payer OTHER ==
[2018-05-11 14:21] LABS: Absolute Monocytes 0.4 K/uL (0.1-1.3); Absolute Neutrophil 4.5 K/uL (1.8-8.0); Basophils % 0.3 % (0-1.3); Eosinophils % 0.3 % (0-4.4); Hematocrit 35.6 % (36.0-45.0); Lymphocytes % 17.6 % (15.3-44.8); MCH 31.3 pg (27.0-35.0); MCV 92.4 fL (80-100); MPV 9.4 fL (7.6-11.3); Monocytes % 6.2 % (3.3-12.3); RBC Red Blood Cell Count 3.85 M/uL (3.86-4.86)
[2018-05-11 14:23] LABS: Protime INR 1.01
--- NOTE | 2018-05-11 14:30 | RAD REPORT ---
EXAM DESCRIPTION: CT - Head Brain Wo Cont - 05/11/2018 2:22 pm CLINICAL HISTORY: Syncope COMPARISON: October 2016 TECHNIQUE: Computed axial tomography of the head was obtained. IV contrast was not requested. All CT scans are performed using dose optimization technique as appropriate and may include automated exposure control or mA/KV adjustment according to patient size. FINDINGS: An intracranial bleed is not seen . The ventricles are normal in caliber. No extra-axial fluid collection is noted. Mild low-density areas within periventricular, deep and sub cortical white matter likely represent ischemic changes secondary to small vessel disease. Fluid within the sinuses/ mastoids is not seen. IMPRESSION: No acute intracranial abnormality is seen. If patient's symptoms persist MRI of the bra in would be recommended.
--- NOTE | 2018-05-11 14:34 | EKG ---
Test Date: 2018-05-11 Test Time: 13:23:15 Backend Developer: HOLLY MEASUREMENT RESULTS: Intervals: Rate: 83 CA: 158 QRSD: 94 QT: 404 QTc: 474 [place]: P: 78 CA: 158 QRS: -47 T: 88 INTERPRETIVE STATEMENTS: Normal sinus rhythm Left axis deviation Septal infarct, age undetermined Abnormal ECG Compared to ECG 01/16/2018 11:22:00 Left ventricular hypertrophy no longer present Myocardial infarct finding still present Electronically Signed On 05-11-18 14:33:48 IV TECHNICIAN by Perez Wolfe
[2018-05-11 14:42] LABS: ALT/SGPT 20 U/L (12-78); AST/SGOT 24 U/L (15-37); Albumin 3.3 g/dL (3.4-5.0); Alkaline Phosphatase 80 U/L (45-117); BUN Blood Urea Nitrogen 23 mg/dL (7-18); Bicarbonate 24 mmol/L (21-32); Bilirubin Direct 0.2 mg/dL (0-0.2); Bilirubin Total 0.7 mg/dL (0.2-1.0); Glucose Level 128 mg/dL (74-106); Magnesium 1.7 mg/dL (1.8-2.4); NT PRO-BNP 143 pg/mL (<450); Potassium 3.8 mmol/L (3.5-5.1); Protein, Total 6.3 g/dL (6.4-8.2); Sodium Level 141 mmol/L (136-145); Troponin (Emerg Dept Use Only) < 0.02 ng/mL (0.0-0.045)
--- NOTE | 2018-05-11 15:40 | RAD REPORT ---
EXAM DESCRIPTION: Priya Single View05/11/2018 2:19 pm CLINICAL HISTORY: Chest pain COMPARISON: January 2018 FINDINGS: The lungs appear clear of acute infiltrate. The heart is normal size. Scoliosis involves the thoracolumbar spine IMPRESSION: No acute abnormalities displayed
[2018-05-11] MEDS ORDERED: MAGNESIUM SULFATE 1 gm IVPB 1 GM/100 ML BAG IV ONE (16:06)
--- NOTE | 2018-05-11 16:37 | ER ---
Nurse's Notes [facility] Name: Hadley Landaverde Age: 78 yrs Sex: Female : 1940 Arrival Date: 05/11/2018 Time: 13:18 Bed 13 Private MD: Diagnosis: Syncope and collapse;Urinary tract infection, site not specified Presentation: 05/11 13:10 Presenting complaint: EMS states: syncopal episode after getting her hair fixed at the [employer], pt was out for about 5 mins and drooling. Negative stroke scale. 1st BP 90/60 HR-108, 2nd BP 122/70 HR-80, BS-145 Temp-97.7 c/o generalized weakness. Transition of care: patient was not received from another setting of care. Onset of symptoms was May 11, 2018. Risk Assessment: Do you want to hurt yourself or someone else? Patient reports no desire to harm self or others. Initial Sepsis Screen: Does the patient meet any 2 criteria? No. Patient's initial sepsis screen is negative. Does the patient have a suspected source of infection? No. Patient's initial sepsis screen is negative. Care prior to arrival: 2 IV attempts but unsuccessful. 13:10 Method Of Arrival: EMS: [facility] 13:10 Acuity: RACHEL 3 sv Triage Assessment: 13:46 Neuro: Reports i was sitting there getting my hair done, i dont remember what happened..tw2 Historical: - Allergies: 13:24 Sulfa (Sulfonamide Antibiotics); sv - Home Meds: 13:24 Allopurinol Oral [Active]; Famotidine Oral [Active]; levothyroxine oral [Active]; sv Lipitor Oral [Active]; Lisinopril Oral [Active]; Potassium Chloride Oral [Active]; - PMHx: 13:24 allergies; Diabetes - NIDDM; GERD; Gout; Hypertension; Hypothyroidism; sv - PSHx: 13:24 Cholecystectomy; Hysterectomy; sv - Immunization history:: Adult Immunizations. - Social history:: Smoking status: . - Ebola Screening: : Patient denies travel to an Ebola-affected area in the 21 days before illness onset. Screenin:45 Abuse screen: Denies threats or abuse. Nutritional screening: No deficits noted. tw2 Tuberculosis screening: No symptoms or risk factors identified. Fall Risk None identified. Assessment: 13:25 General: Appears in no apparent distress. slender, Behavior is calm, cooperative, tw2 appropriate for age. Pain: Denies pain. Neuro: Level of Consciousness is awake, alert, obeys commands, Oriented to person, place, time, situation. Cardiovascular: Heart tones S1 S2 Patient's skin is warm and dry. Rhythm is with Frequent PVC's. Respiratory: Airway is patent Respiratory effort is even, unlabored, Respiratory pattern is regular, symmetrical, Breath sounds are clear bilaterally. GI: Abdomen is flat, Bowel sounds present X 4 quads. : No signs and/or symptoms were reported regarding the genitourinary system. Derm: No signs and/or symptoms reported regarding the dermatologic system. Skin is intact, is fragile, is thin, Skin temperature is warm. Musculoskeletal: Range of motion: intact in all extremities. 14:14 Reassessment: Patient appears in no apparent distress at this time. No changes from tw2 previously documented assessment. Patient and/or family updated on plan of care and expected duration. Pain level reassessed. Patient is alert, oriented x 3, equal unlabored respirations, skin warm/dry/pink. pt educated as to need for urine sample when she can give us some. order marked complete, but it is still needed. 14:59 Reassessment: Patient appears in no apparent distress at this time. No changes from tw2 previously documented assessment. Patient and/or family updated on plan of care and expected duration. Pain level reassessed. Patient is alert, oriented x 3, equal unlabored respirations, skin warm/dry/pink. 16:00 Reassessment: Patient appears in no apparent distress at this time. No changes from tw2 previously documented assessment. Patient and/or family updated on plan of care and expected duration. Pain level reassessed. Patient is alert, oriented x 3, equal unlabored respirations, skin warm/dry/pink. 17:00 Reassessment: Patient appears in no apparent distress at this time. No changes from tw2 previously documented assessment. Patient and/or family updated on plan of care and expected duration. Pain level reassessed. Patient is alert, oriented x 3, equal unlabored respirations, skin warm/dry/pink. 18:00 Reassessment: Patient appears in no apparent distress at this time. No changes from tw2 previously documented assessment. Patient and/or family updated on plan of care and expected duration. Pain level reassessed. Patient is alert, oriented x 3, equal unlabored respirations, skin warm/dry/pink. 18:22 Reassessment: PT IN MRI AT THIS TIME. tw2 20:00 Reassessment: Patient appears in no apparent distress at this time. Patient and/or cc3 family updated on plan of care and expected duration. Pain level reassessed. Patient is alert, oriented x 3, equal unlabored respirations, skin warm/dry/pink. Patient just came back from MRI procedure. Lab called c/o BRAYAN Bacon and was told to take blood cultures first for the patient prior to sending for admission. Patient with IV cannula gauge 22 at the right ACV saline locked. 20:20 Reassessment: Patient appears in no apparent distress at this time. Patient and/or cc3 family updated on plan of care and expected duration. Pain level reassessed. Patient is alert, oriented x 3, equal unlabored respirations, skin warm/dry/pink. Room available in 401, report handed over to BRAYAN Sandoval and said to try first to take blood culture for the patient, charge nurse Kati informed and she said she'll inform the laboratory to come and do the blood cultures. 21:20 Reassessment: Patient appears in no apparent distress at this time. Patient and/or cc3 family updated on plan of care and expected duration. Pain level reassessed. Patient is alert, oriented x 3, equal unlabored respirations, skin warm/dry/pink. electromechanical assembly technician came and 2 sets of blood cultures taken from the patient. Patient left ER for admisssion vitally stable by wheelchair escorted by cardiac cath lab radiology technologist Melly. Vital Signs: 13:24 BP 132 / 63; Pulse 88; Resp 16; Pulse Ox 100% ; Weight 54.88 kg; Height 5 ft. 6 in. sv (167.64 cm); Pain 0/10; 14:14 Temp 98.4(O); tw2 14:14 BP 127 / 63; Pulse 81; Resp 16; Pulse Ox 99% on R/A; tw2 14:58 BP 122 / 67; Pulse 76; Resp 14; Pulse Ox 100% on R/A; tw2 15:52 BP 140 / 72; Pulse 72; Resp 16; Pulse Ox 100% on R/A; tw2 16:55 BP 144 / 78; Pulse 73; Resp 21; Pulse Ox 100% on R/A; tw2 18:00 BP 146 / 73; Pulse 70; Resp 16; Pulse Ox 100% on R/A; tw2 20:00 BP 129 / 78; Pulse 74; Resp 18 S; Temp 97.9(O); Pulse Ox 100% on R/A; cc3 21:10 BP 127 / 74; Pulse 75; Resp 16 S; Pulse Ox 100% on R/A; cc3 13:24 Body Mass Index 19.53 (54.88 kg, 167.64 cm) sv ED Course: 13:18 Patient arrived in ED. sv 13:23 Triage completed. sv 13:24 EKG done, by animal technician. reviewed by Dalton Dewey MD. at1 13:25 Meagan Mitchell RN is Primary Nurse. tw2 13:25 Arm band placed on. sv 13:26 Robin Mcarthur PA is PHCP. cp 13:26 Dalton Dewey MD is Attending Physician. cp 13:42 Inserted saline lock: 22 gauge in right antecubital area, using aseptic technique. jb1 Blood collected. 13:45 Bed in low position. Call light in reach. Side rails up X2. monitor tech on. Pulse tw2 ox on. NIBP on. Warm blanket given. 14:13 X-ray completed. Portable x-ray completed in exam room. Patient tolerated procedure ls3 well. 14:19 XRAY Chest (1 view) In Process Unspecified. EDMS 14:23 CT completed. Patient tolerated procedure well. Patient moved to CT via stretcher. vr Patient moved back from CT. 14:23 CT Head Brain wo Cont In Process Unspecified. EDMS 16:11 Urine Microscopic Only Sent. tw2 16:36 Deandre Cardenas DO is Hospitalizing Provider. cp 18:12 Lactate Sent. tw2 18:13 Procalcitonin Sent. tw2 18:20 Patient moved to MRI via wheelchair. ka 18:58 Report given to BRAYAN Pyle. tw2 19:12 Patient taken to ultrasound. via wheelchair. ka 21:20 No provider procedures requiring assistance completed. Patient admitted, IV remains in cc3 place. Administered Medications: 16:05 Drug: Magnesium Sulfate 1 grams Route: IVPB; Infused Over: 1 hrs; Site: right tw2 antecubital; 17:05 Follow up: Response: No adverse reaction; IV Status: Completed infusion tw2 17:14 Drug: Rocephin - (cefTRIAXone) 1 grams {Note: ivp available only, provider aware..} tw2 Route: IVPB; Infused Over: 5 mins; Site: right antecubital; 17:16 Follow up: Response: No adverse reaction; IV Status: Completed infusion tw2 Point of Care Testin:44 n/a sent with blood work, blood sugar was 145 from EMS tw2 Ranges: Outcome: 16:36 Decision to Hospitalize by Provider. cp 21:20 Admitted to Tele accompanied by tech, via wheelchair, room 401, with chart, Report cc3 called to BRAYAN Hunt 21:20 Condition: stable 21:20 Instructed on the need for admit, Demonstrated understanding of instructions. 21:28 Patient left the ED. cc3 Signatures: Dispatcher [employer] EDMS Marcello Wolf jb1 Chrissy Prescott, RN Cherise Shirley Amanda, brake repair supervisor EKG Tat1 Robin Mcarthur PA PA Stephany Aguilar Tara, RN RN tw2 Lashanda Sharma cc3 Claudia Rahman3
--- NOTE | 2018-05-11 16:37 | EDPHYS ---
Physician Documentation [facility] Name: Hadley Landaverde Age: 78 yrs Sex: Female : 1940 Arrival Date: 05/11/2018 Time: 13:18 Bed 13 Private MD: ED Physician Dalton Dewey HPI: 05/11 13:55 This 78 yrs old Female presents to ER via EMS with complaints of Syncope. cp 13:55 The patient has experienced syncope, became unresponsive. Onset: The symptoms/episode cp began/occurred today. Duration: This was a single episode, that lasted 5 minute(s). 13:55 Associated injury: The patient did not suffer any apparent associated injury. cp 13:55 Context: the episode(s) was witnessed, by a friend, occurred at home, occurred while cp the patient was sitting, Just prior to the episode the patient experienced no apparent symptoms, son reports syncopal episode was witnessed by hairdresser who reports patient was unresponsive for approximately 5 minutes. No seizure type activity observed. Historical: - Allergies: 13:24 Sulfa (Sulfonamide Antibiotics); sv - Home Meds: 13:24 Allopurinol Oral [Active]; Famotidine Oral [Active]; levothyroxine oral [Active]; sv Lipitor Oral [Active]; Lisinopril Oral [Active]; Potassium Chloride Oral [Active]; - PMHx: 13:24 allergies; Diabetes - NIDDM; GERD; Gout; Hypertension; Hypothyroidism; sv - PSHx: 13:24 Cholecystectomy; Hysterectomy; sv - Immunization history:: Adult Immunizations. - Social history:: Smoking status: . - Ebola Screening: : Patient denies travel to an Ebola-affected area in the 21 days before illness onset. ROS: 14:00 Constitutional: Negative for body aches, chills, fever, poor PO intake. cp 14:00 Eyes: Negative for injury, pain, redness, and discharge. cp 14:00 ENT: Negative for drainage from ear(s), ear pain, sore throat, difficulty swallowing, difficulty handling secretions. 14:00 Cardiovascular: Negative for chest pain, edema, palpitations. 14:00 Respiratory: Negative for cough, shortness of breath, wheezing. 14:00 Abdomen/GI: Negative for abdominal pain, nausea, vomiting, and diarrhea, constipation, black/tarry stool, rectal bleeding. 14:00 MS/extremity: Negative for injury or acute deformity. 14:00 Skin: Negative for cellulitis, rash. 14:00 Neuro: Positive for syncope, general weakness, Negative for altered mental status, headache, seizure activity. 14:00 All other systems are negative. Exam: 14:07 Constitutional: The patient appears in no acute distress, alert, awake, cp non-diaphoretic, non-toxic, well developed, well nourished. 14:07 Head/Face: Normocephalic, atraumatic. Eyes: Pupils equal round and reactive to light, cp extra-ocular motions intact. Lids and lashes normal. Conjunctiva and sclera are non-icteric and not injected. Cornea within normal limits. Periorbital areas with no swelling, redness, or edema. ENT: Nares patent. No nasal discharge, no septal abnormalities noted. Tympanic membranes are normal and external auditory canals are clear. Oropharynx with no redness, swelling, or masses, exudates, or evidence of obstruction, uvula midline. Mucous membranes moist. Neck: Trachea midline, no thyromegaly or masses palpated, and no cervical lymphadenopathy. Supple, full range of motion without nuchal rigidity, or vertebral point tenderness. No Meningismus. Chest/axilla: Normal chest wall appearance and motion. Nontender with no deformity. No lesions are appreciated. 14:07 Cardiovascular: Rate: normal, Rhythm: regular, Edema: is not appreciated, JVD: is not appreciated. 14:07 Respiratory: the patient does not display signs of respiratory distress, Respirations: normal, no use of accessory muscles, no retractions, no splinting, no tachypnea, labored breathing, is not present, Breath sounds: are clear throughout, no decreased breath sounds, no stridor, no wheezing. 14:07 Abdomen/GI: Inspection: abdomen appears normal, Bowel sounds: active, all quadrants, Palpation: abdomen is soft and non-tender, in all quadrants. 14:07 Back: pain, is absent, ROM is normal. 14:07 Musculoskeletal/extremity: Exam is negative for deformity, injury. 14:07 Skin: cellulitis, is not appreciated, no rash present. 14:07 Neuro: Orientation: to person, place \T\ time. Mentation: is normal, Cerebellar function: Romberg testing is negative, Motor: moves all fours, strength is normal, Sensation: no obvious gross deficits. Vital Signs: 13:24 BP 132 / 63; Pulse 88; Resp 16; Pulse Ox 100% ; Weight 54.88 kg; Height 5 ft. 6 in. sv (167.64 cm); Pain 0/10; 14:14 Temp 98.4(O); tw2 14:14 BP 127 / 63; Pulse 81; Resp 16; Pulse Ox 99% on R/A; tw2 14:58 BP 122 / 67; Pulse 76; Resp 14; Pulse Ox 100% on R/A; tw2 15:52 BP 140 / 72; Pulse 72; Resp 16; Pulse Ox 100% on R/A; tw2 16:55 BP 144 / 78; Pulse 73; Resp 21; Pulse Ox 100% on R/A; tw2 18:00 BP 146 / 73; Pulse 70; Resp 16; Pulse Ox 100% on R/A; tw2 20:00 BP 129 / 78; Pulse 74; Resp 18 S; Temp 97.9(O); Pulse Ox 100% on R/A; cc3 21:10 BP 127 / 74; Pulse 75; Resp 16 S; Pulse Ox 100% on R/A; cc3 13:24 Body Mass Index 19.53 (54.88 kg, 167.64 cm) sv MDM: 13:26 Patient medically screened. cp 15:00 Differential Diagnosis: cardiac arrhythmia, cerebrovascular accident, drug effect, GI cp bleed, idiopathic syncope, pseudo seizure, seizure, vasovagal episode. 16:30 Data reviewed: vital signs, nurses notes, lab test result(s), EKG, radiologic studies, cp CT scan, plain films. 16:30 Test interpretation: by ED physician or midlevel provider: plain radiologic studies. cp Counseling: I had a detailed discussion with the patient and/or guardian regarding: the historical points, exam findings, and any diagnostic results supporting the discharge/admit diagnosis, lab results, radiology results, the need for further work-up and treatment in the hospital. Physician consultation: Deandre Cardenas DO was called at 16:25, was contacted at 16:25, regarding admission, to the telemetry unit. patient's condition, would like further tests performed, lactate, procalcitonin. 05/11 14:06 Order name: Basic Metabolic Panel; Complete Time: 15:50 cp 05/11 15:50 Interpretation: Normal except: GLUC 128; BUN 23; GFR 48. 05/11 14:06 Order name: CBC with Diff; Complete Time: 15:50 05/11 15:50 Interpretation: Normal except: RBC 3.85; HCT 35.6; PLT 132; JAZMINE% 75.6. 05/11 14:06 Order name: LFT's; Complete Time: 15:50 05/11 15:51 Interpretation: Normal except: TP 6.3; ALB 3.3. 05/11 14:06 Order name: Magnesium; Complete Time: 15:50 05/11 14:06 Order name: NT PRO-BNP; Complete Time: 15:50 05/11 14:06 Order name: PT-INR; Complete Time: 15:50 05/11 14:06 Order name: Troponin (emerg Dept Use Only); Complete Time: 15:50 05/11 14:06 Order name: Urine Microscopic Only; Complete Time: 16:50 05/11 16:32 Order name: Procalcitonin 05/11 16:32 Order name: Lactate 05/11 16:33 Order name: Urine Culture 05/11 16:37 Order name: Urine Dipstick--Ancillary (enter results); Complete Time: 16:50 ms 05/11 18:54 Order name: T4 Free [facility] 05/11 18:54 Order name: Thyroid Stimulating Hormone [facility] 05/11 13:49 Order name: EKG; Complete Time: 13:50 05/11 13:49 Order name: EKG - Nurse/Tech; Complete Time: 13:59 05/11 14:06 Order name: CT Head Brain wo Cont; Complete Time: 15:50 05/11 14:06 Order name: XRAY Chest (1 view); Complete Time: 15:50 05/11 14:06 Order name: Cardiac monitoring; Complete Time: 14:06 05/11 14:06 Order name: IV Saline Lock; Complete Time: 14:07 05/11 14:06 Order name: Labs collected and sent; Complete Time: 14:07 05/11 14:06 Order name: O2 Per Protocol; Complete Time: 14:07 05/11 14:06 Order name: O2 Sat Monitoring; Complete Time: 14:14 05/11 14:06 Order name: Urine Dipstick-Ancillary (obtain specimen); Complete Time: 14:06 05/11 19:33 Order name: [facility] 05/11 19:38 Order name: [facility] 05/11 19:40 Order name: [facility] 05/11 20:11 Order name: [facility] Administered Medications: 16:05 Drug: Magnesium Sulfate 1 grams Route: IVPB; Infused Over: 1 hrs; Site: right tw2 antecubital; 17:05 Follow up: Response: No adverse reaction; IV Status: Completed infusion tw2 17:14 Drug: Rocephin - (cefTRIAXone) 1 grams {Note: ivp available only, provider aware..} tw2 Route: IVPB; Infused Over: 5 mins; Site: right antecubital; 17:16 Follow up: Response: No adverse reaction; IV Status: Completed infusion tw2 Point of Care Testin:44 n/a sent with blood work, blood sugar was 145 from EMS tw2 Ranges: Critical Glucose Levels:Adult <50 mg/dl or >400 mg/dl <40 mg/dl or >180 mg/dl Disposition: 05/11/18 16:36 Hospitalization ordered by Deandre Cardenas for Observation. Preliminary diagnosis are Syncope and collapse, Urinary tract infection, site not specified. - Bed requested for Telemetry/MedSurg (observation). - Status is Observation. cc3 - Condition is Stable. - Problem is new. - Symptoms have improved. UTI on Admission? Yes Addendum: 05/14/2018 09:07 Co-signature as Attending Physician, Dalton Dewey MD I agree with the assessment and k dr plan of care. Signatures: Dispatcher [employer] [facility] Lizzie Guzman RN RN kl Verde, Stephanie, RN RN sv Rittger, Kevin, MD MD kdr Page, Corey, PA PA cp Wise, Tara, RN RN tw2 Lashanda Sharma cc3 Corrections: (The following items were deleted from the chart) 05/11 15:56 15:51 Evangelista ordered. cp tw2 19:13 16:36 Hospitalization Ordered by Deandre Cardenas DO for Observation. Preliminary kl diagnosis is Syncope and collapse; Urinary tract infection, site not specified. Bed requested for Telemetry/MedSurg (observation). Status is Observation. Condition is Stable. Problem is new. Symptoms have improved. UTI on Admission? Yes. cp 21:28 19:13 05/11/2018 16:36 Hospitalization Ordered by Deandre Cardenas DO for Observation. cc3 Preliminary diagnosis is Syncope and collapse; Urinary tract infection, site not specified. Bed requested for Telemetry/MedSurg (observation). Status is Observation. Condition is Stable. Problem is new. Symptoms have improved. UTI on Admission? Yes. kl
[2018-05-11 16:39] LABS: Urine Bacteria LOADED /HPF (<20); Urine Culture Reflex Order REFLEXED; Urine RBC <5 /HPF (NONE SEEN)
[2018-05-11 16:42] LABS: Urine Blood TRACE (NEG); Urine Glucose NEGATIVE (NEG); Urine Protein TRACE (NEG)
[2018-05-11] MEDS ORDERED: ONDANSETRON 4 MG/2 ML VIAL IV PRN (17:00)
[2018-05-11] MEDS ORDERED: ACETAMINOPHEN 500 MG TAB PO PRN (17:00)
[2018-05-11] MEDS ORDERED: CEFTRIAXONE/SWI 1gm 1 GM/10 ML SYR ONE (17:12)
--- NOTE | 2018-05-11 17:14 | P.HP ---
Certification for Inpatient Patient admitted to: Observation With expected LOS: <2 Midnights Patient will require the following post-hospital care: Home Health Services Practitioner: I am a practitioner with admitting privileges, knowledge of patient current condition, hospital course, and medical plan of care. Services: Services provided to patient in accordance with Admission requirements found in Title 42 Section 412.3 of the Code of Federal Regulations Patient History Date of Service: 05/11/18 Primary Care Provider: JAE Diaz Reason for admission: Syncope History of Present Illness: 78-year-old female presented to the emergency room after a syncopal episode. Patient was brought in to the emergency room after a syncopal episode. She apparently passed out earlier today. It lasted for about 5 min. She was at her home getting her hair done. She was sitting at the walker at that time. When she got up to reposition is when she had the syncopal episode. She denies any significant chest pain, palpitations or shortness of breath. She denied any nausea, vomiting. She had reported some increased polyuria. No fever chills noted. In the ER patient evaluated. Blood pressure stable. White count 5.9, hemoglobin 12.1, BUN of 23, creatinine 1.1, GFR 48. Magnesium 1.7. Urinalysis shows bacteria. Head CT scan unremarkable for acute change. CXR unremarkable. Patient admitted for further treatment and evaluation. Patient was actually seen a couple months ago for gastroenteritis and UTI. Patient had normal echocardiogram done at that time. Urine culture was positive for E coli. Patient stable this time. She is alert and cooperative. She denies any significant fever. Allergies Sulfa (Sulfonamide Antibiotics) Allergy (Verified 12/13/17 21:49) Hives/Rash Home medications list reviewed: Yes Home Medications: Allopurinol [Zyloprim*] 100 mg PO DAILY 12/13/17 Aspirin [Aspir-Low] 81 mg PO DAILY 12/13/17 Atorvastatin Calcium [Lipitor] 40 mg PO DAILY 12/13/17 Cholecalciferol (Vitamin D3) [Vitamin D3] 2,000 unit PO DAILY 12/13/17 Cyanocobalamin [Vitamin B-12*] 1,000 mcg PO DAILY 12/13/17 Levothyroxine [Synthroid*] 0.112 mcg PO DAILY 12/13/17 Amox/Clavulanate [Augmentin 500-125 mg Tab*] 500 mg PO BID #14 tab 12/16/17 Ensure High Protein 237 ml PO BID #60 can 12/16/17 Lactobacillus Acidophilus [Acidophilus Lactobacilli] 1 each PO BID #60 capsule 12/16/17 Lisinopril 20 mg PO BID #60 tablet 12/16/17 Loperamide [Imodium*] 2 mg PO Q4H PRN #10 cap 12/16/17 Pantoprazole [Protonix Tab*] 40 mg PO DAILYAC #30 tab 12/16/17 - Past Medical/Surgical History Diabetic: Yes -: Hypothyroidism -: GERD -: Hypertension -: Gout -: Right knee replacement Psychosocial/ Personal History: Patient currently lives by herself. Her is in an assisted living facility patient receives home health and physical therapy - Family History Mother -: Cancer Notes: breast cancer. lived to be a 104 years old Father -: Other (see notes) Notes: arthritis - Social History Smoking Status: Never smoker Alcohol use: No CD- Drugs: No Caffeine use: Yes Place of Residence: Home Review of Systems General: Weakness, Malaise, As per HPI Eyes: Unremarkable ENT: Unremarkable Respiratory: Unremarkable Cardiovascular: Light Headedness, As per HPI Gastrointestinal: Unremarkable Genitourinary: As per HPI Musculoskeletal: Unremarkable Integumentary: Unremarkable Neurological: As per HPI Lymphatics: Unremarkable Physical Examination - Physical Exam General: Alert, In no apparent distress, Oriented x3, Cooperative HEENT: Atraumatic, Normocephalic, PERRLA, Mucous membr. moist/pink Neck: Supple, No Thyromegaly Respiratory: Clear to auscultation bilaterally, Normal air movement Cardiovascular: Normal pulses, Regular rate/rhythm Gastrointestinal: Normal bowel sounds, Soft and benign, Non-distended, No ascites, No tenderness, No masses, No rebound, No guarding Musculoskeletal: No contractures, No erythema, No tenderness, No warmth Integumentary: No tenderness/swelling, No erythema, No warmth, No cyanosis Neurological: Normal speech, Normal strength at 5/5 x4 extr, Normal tone, Normal affect Lymphatics: No axilla or inguinal lymphadenopathy - Studies Laboratory Data (last 24 hrs) 05/11/18 14:00: PT 11.9, INR 1.01 05/11/18 14:00: WBC 5.9, Hgb 12.1, Hct 35.6 L, Plt Count 132 L 05/11/18 14:00: Sodium 141, Potassium 3.8, BUN 23 H, Creatinine 1.10, Glucose 128 H, Magnesium 1.7 L, Total Bilirubin 0.7, AST 24, ALT 20, Alkaline Phosphatase 80 Assessment and Plan - Plan Impression: Syncope likely related to underlying UTI and mild dehydration with possible orthostatic hypotension Hypertension Hypothyroidism GERD Gout Plan: Syncope likely related to underlying UTI and mild dehydration with possible orthostatic hypotension: Will start IV fluids and antibiotic therapy. Patient previously with UTI-E coli. Will start Rocephin. Will obtain blood cultures. Will further evaluate and rule out stroke. Will check carotid Doppler and MRI stroke protocol. Previous echocardiogram unremarkable. Will check orthostatics tomorrow. Will have physical therapy assess ambulation. Anticipate discharge tomorrow if workup unremarkable. Hypertension: Will continue with her medication from home Hypothyroidism: Will continue with her medication. Will check tsh and free T4. GERD: Provide PPI. Gout: Continue with her medication Discharge Plan: Home Plan to discharge in: 24 Hours - Advance Directives Does patient have a Living Will: Yes Does patient have a Durable POA for Healthcare: Yes - Code Status/Comfort Care Code Status Assessed: Yes (Patient full code) Time Spent Managing Pts Care (In Minutes): 55
[2018-05-11] MEDS ORDERED: CEFTRIAXONE/SWI 1gm 1 GM/10 ML SYR IVP SCH (18:00)
[2018-05-11 18:54] LABS: Thyroid Stimulating Hormone 0.152 uIU/mL (0.360-3.740)
--- NOTE | 2018-05-11 19:32 | RAD REPORT ---
EXAM DESCRIPTION: MRI - Brain W/Wo Cont - 05/11/2018 7:13 pm CLINICAL HISTORY: Syncope COMPARISON: January [address] TECHNIQUE: Axial, sagittal, and coronal magnetic images of the brain were obtained. Eighteen cc Mult iHance administered intravenously FINDINGS: A 13 millimeter enhancing mass abuts the planum sphenoidale. It has Iso signal on T2 weigh elizabeth sequences and is compatible with a meningioma. Diffusion-weighted sequences do not demonstrate evidence of an acute infarction. Mild signal within periventricular, deep and subcortical white matter likely represent ischemic kearns es secondary to small vessel disease. An extra-axial fluid collection is not noted. Sinuses and mastoids are clear. 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
--- NOTE | 2018-05-11 19:36 | RAD REPORT ---
EXAM DESCRIPTION: MRI - MRA Neck W/Wo Cont - 05/11/2018 7:14 pm CLINICAL HISTORY: Syncope COMPARISON: None. TECHNIQUE: Magnetic resonance angiogram of the neck was performed. 18 cc of MultiHance was administe red intravenously. 3D MIPS reconstruction performed FINDINGS: The common carotid, internal carotid and external carotid arteries do not demonstrate a si gnificant stenosis. An aneurysm is not seen. The left vertebral artery is more dominant than the right. No abnormality is displayed IMPRESSION: Unremarkable MRA neck NASCET criteria used. Mild 0-49% stenosis Moderate 50-69% stenosis Severe 70-99% stenosis
--- NOTE | 2018-05-11 19:37 | RAD REPORT ---
EXAM DESCRIPTION: MRI - MRA Head Wo Cont - 05/11/2018 7:14 pm CLINICAL HISTORY: Syncope COMPARISON: None. TECHNIQUE: Magnetic resonance angiogram of the head was performed. Treatment reconstruction performed FINDINGS: The visualized anterior cerebral, middle cerebral, posterior cerebral, basilar and distal internal carotid arteries do not demonstrate a significant stenosis. An aneurysm is not seen IMPRESSION: Unremarkable MRA head
--- NOTE | 2018-05-11 20:10 | RAD REPORT ---
EXAM DESCRIPTION: USCarotid Artery Uuusozilk71/29/2018 7:57 pm CLINICAL HISTORY: Syncope COMPARISON: None FINDINGS: The velocity of the right internal carotid artery equals 103 cm/sec. The right ICA/CCA rat io 1.9 The velocity of the left internal carotid artery equals 54 cm/sec. The left ICA/CCA ratio 1.2 Plaque is not visualized within the carotid arteries. The right internal carotid artery is tortuous The vertebral arteries demonstrate antegrade flow IMPRESSION: Unremarkable exam
[2018-05-11] MEDS ORDERED: ATORVASTATIN 40 MG TAB PO SCH (21:00)
[2018-05-11 22:04] VITALS: BMI 19.1
[2018-05-11] MEDS: ENOXAPARIN 40 MG/0.4 ML SQ SCH (22:06)
[2018-05-11] MEDS: NA CHLORIDE 0.9% 1,000 ML IV SCH (22:07)
[2018-05-11 23:04] LABS: CKMB Creatine Kinase MB 2.4 ng/mL (0.3-3.6); Creatine Phosphokinase 96 U/L (26-192); Troponin I < 0.02 ng/mL (0.0-0.045)
[2018-05-12] MEDS: NA CHLORIDE 0.9% 1,000 ML IV SCH ×2 (05:14→11:33)
[2018-05-12] MEDS ORDERED: LEVOTHYROXINE SOD 0.112 MG TAB PO SCH (06:00)
[2018-05-12] MEDS ORDERED: PANTOPRAZOLE 40MG TABLET PO SCH (07:30)
[2018-05-12 08:48] LABS: Absolute Lymphocytes (CBC) 1.9 K/uL (0.7-4.9); Absolute Monocytes 0.5 K/uL (0.1-1.3); Absolute Neutrophil 3.2 K/uL (1.8-8.0); Basophils % 0.4 % (0-1.3); Eosinophils % 1.6 % (0-4.4); Hematocrit 37.6 % (36.0-45.0); Lymphocytes % 33.6 % (15.3-44.8); MCH 31.1 pg (27.0-35.0); MCV 91.7 fL (80-100); MPV 9.6 fL (7.6-11.3)
[2018-05-12] MEDS ORDERED: ALLOPURINOL 100 MG TAB PO SCH (09:00)
[2018-05-12] MEDS ORDERED: ASPIRIN EC 81 MG TAB PO SCH (09:00)
[2018-05-12] MEDS ORDERED: CYANOCOBALAMIN 1,000 MCG TAB PO SCH (09:00)
[2018-05-12] MEDS ORDERED: CEFTRIAXONE/SWI 1gm 1 GM/10 ML SYR IVP SCH (09:00)
[2018-05-12 09:08] LABS: Magnesium 2.2 mg/dL (1.8-2.4); Potassium 3.6 mmol/L (3.5-5.1)
[2018-05-12 09:11] LABS: CKMB Creatine Kinase MB 2.3 ng/mL (0.3-3.6); Creatine Phosphokinase 106 U/L (26-192); Troponin I < 0.02 ng/mL (0.0-0.045)
[2018-05-12] MEDS: ENOXAPARIN 40 MG/0.4 ML SQ SCH (09:26)
[2018-05-12 09:27] VITALS: O2SAT 99
[2018-05-12] MEDS ORDERED: LISINOPRIL 10 MG TAB PO SCH (11:31)
--- NOTE | 2018-05-12 13:24 | P.DS ---
Admission Date: 05/11/18 Discharge Date: 05/12/18 Primary Care Provider: JAE Diaz Disposition: DC HOME/HOME HEALTH CARE Discharge Condition: GOOD Reason for Admission: Syncope Consultations: None Procedures: MRI Brain: COMPARISON: January [address] TECHNIQUE: Axial, sagittal, and coronal magnetic images of the brain were obtained. Eighteen cc MultiHance administered intravenously FINDINGS: A 13 millimeter enhancing mass abuts the planum sphenoidale. It has Iso signal on T2 weighted sequences and is compatible with a meningioma. Diffusion-weighted sequences do not demonstrate evidence of an acute infarction. Mild signal within periventricular, deep and subcortical white matter likely represent ischemic changes secondary to small vessel disease. An extra-axial fluid collection is not noted. Sinuses and mastoids are clear. 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 TECHNIQUE: Magnetic resonance angiogram of the head was performed. Treatment reconstruction performed FINDINGS: The visualized anterior cerebral, middle cerebral, posterior cerebral , basilar and distal internal carotid arteries do not demonstrate a significant stenosis. An aneurysm is not seen IMPRESSION: Unremarkable MRA head MRA Neck: COMPARISON: None. TECHNIQUE: Magnetic resonance angiogram of the neck was performed. 18 cc of MultiHance was administered intravenously. 3D MIPS reconstruction performed FINDINGS: The common carotid, internal carotid and external carotid arteries do not demonstrate a significant stenosis. An aneurysm is not seen. The left vertebral artery is more dominant than the right. No abnormality is displayed IMPRESSION: Unremarkable MRA neck Carotid Doppler: COMPARISON: None FINDINGS: The velocity of the right internal carotid artery equals 103 cm/sec. The right ICA/CCA ratio 1.9 The velocity of the left internal carotid artery equals 54 cm/sec. The left ICA/ CCA ratio 1.2 Plaque is not visualized within the carotid arteries. 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 Patient was brought in to the emergency room after a syncopal episode. She apparently passed out earlier today. It lasted for about 5 min. She was at her home getting her hair done. She was sitting at the walker at that time. When she got up to reposition is when she had the syncopal episode. She denies any significant chest pain, palpitations or shortness of breath. She denied any nausea, vomiting. She had reported some increased polyuria. No fever chills noted. In the ER patient evaluated. Blood pressure stable. White count 5.9, hemoglobin 12.1, BUN of 23, creatinine 1.1, GFR 48. Magnesium 1.7. Urinalysis shows bacteria. Head CT scan unremarkable for acute change. CXR unremarkable. Patient admitted for further treatment and evaluation. Patient was actually seen a couple months ago for gastroenteritis and UTI. Patient had normal echocardiogram done at that time. Urine culture was positive for E coli. Patient stable this time. She is alert and cooperative. She denies any significant fever. Hospital Course: Patient presented with syncopal episode. Patient evaluated in the emergency room. Patient found to have a UTI. Patient with history of UTI. Patient improved with IV fluid and antibiotic therapy. Patient was evaluated for possible stroke. MRI and workup showed no acute stroke. MRA of head and neck unremarkable. Carotid Doppler unremarkable. MRI did show a 12 mm meningioma. Previous echocardiogram unremarkable. At discharge patient will continue with Augmentin 500 mg 1 pill twice daily for 7 days to treat her UTI. UTI prevention will need to be enforced. Recommendation is for her PCP to follow up urine culture results within 1 week. Recommendation to follow up with her PCP in 1 week to continue her care. As for her meningioma, recommendation is for the patient to follow up with neurology in 1-2 weeks to establish care and to further address. Home health and physical therapy will be arranged prior to discharge. Patient has hypertension. Patient will continue with her medication-lisinopril 20 mg 1 pill twice daily. Blood pressure stable at this time. Patient did work with physical therapy without symptomatic orthostatic hypotension. Recommendation is to maintain blood pressures less 150/80. Further adjustment can be done by her PCP. Patient is to monitor for changes in her blood pressure. Will recommend to discontinue potassium supplementation. Patient has hypothyroidism. Patient will continue with his medication- levothyroxine 100 mcg daily. Patient has GERD. Patient will continue with Pepcid 20 mg daily. Patient has hyperlipidemia. She will continue with Lipitor 40 mg daily Patient has gout. She will continue with her medication-allopurinol 100 mg daily. Vital Signs/Physical Exam: Temp Pulse Resp BP Pulse Ox 97.5 F 67 18 162/65 H 100 11/30/18 08:00 05/12/18 12:25 05/12/18 08:00 05/12/18 12:25 05/12/18 08:00 General: Alert, In no apparent distress, Oriented x3, Cooperative HEENT: Atraumatic, Mucous membr. moist/pink Neck: Supple Respiratory: Clear to auscultation bilaterally, Normal air movement Cardiovascular: Normal pulses, Regular rate/rhythm Gastrointestinal: Normal bowel sounds, Soft and benign, Non-distended, No tenderness, No masses, No rebound, No guarding Musculoskeletal: No erythema, No tenderness, No warmth Integumentary: No tenderness/swelling, No erythema, No warmth, No cyanosis Neurological: Normal speech, Normal strength at 5/5 x4 extr, Normal tone, Normal affect Laboratory Data at Discharge: WBC 5.7 K/uL (4.3-10.9) 05/12/18 08:33 Hgb 12.8 g/dL (12.0-15.0) 05/12/18 08:33 Hct 37.6 % (36.0-45.0) 05/12/18 08:33 Plt Count 121 K/uL (152-406) L 05/12/18 08:33 PT 11.9 SECONDS (9.5-12.5) 05/11/18 14:00 INR 1.01 05/11/18 14:00 Sodium 144 mmol/L (136-145) 05/12/18 08:33 Potassium 3.6 mmol/L (3.5-5.1) 05/12/18 08:33 BUN 20 mg/dL (7-18) H 05/12/18 08:33 Creatinine 0.80 mg/dL (0.55-1.3) 05/12/18 08:33 Glucose 72 mg/dL (74-106) L 05/12/18 08:33 Magnesium 2.2 mg/dL (1.8-2.4) D 05/12/18 08:33 Total Bilirubin 0.7 mg/dL (0.2-1.0) 05/11/18 14:00 AST 24 U/L (15-37) 05/11/18 14:00 ALT 20 U/L (12-78) 05/11/18 14:00 Alkaline Phosphatase 80 U/L (45-117) 05/11/18 14:00 Troponin I < 0.02 ng/mL (0.0-0.045) 05/12/18 08:33 Triglycerides 90 mg/dL (<150) 05/12/18 08:33 Cholesterol 137 mg/dL (<200) 05/12/18 08:33 HDL Cholesterol 59 mg/dL (40-60) 05/12/18 08:33 Cholesterol/HDL Ratio 2.32 05/12/18 08:33 Home Medications: Allopurinol [Zyloprim*] 100 mg PO DAILY 12/13/17 Atorvastatin Calcium [Lipitor] 40 mg PO DAILY 12/13/17 Lisinopril 20 mg PO BID #60 tablet 12/16/17 Amoxicillin/Potassium Clav [Augmentin 500-125 Tablet] 1 each PO BID #14 tablet 05/12/18 Famotidine 20 mg PO DAILY 05/12/18 Levothyroxine [Synthroid*] 100 mcg PO [id number] 05/12/18 New Medications: Amoxicillin/Potassium Clav [Augmentin 500-125 Tablet] 1 each PO BID #14 tablet Patient Discharge Instructions: 1. Patient will need to follow up with a PCP in 1 week to follow up this hospitalization. 2. Patient presented with syncopal episode. Patient evaluated in the emergency room. Patient found to have a UTI. Patient with history of UTI. Patient improved with IV fluid and antibiotic therapy. Patient was evaluated for possible stroke. MRI and workup showed no acute stroke. MRA of head and neck unremarkable. Carotid Doppler unremarkable. MRI did show a 12 mm meningioma. Previous echocardiogram unremarkable. At discharge patient will continue with Augmentin 500 mg 1 pill twice daily for 7 days to treat her UTI. UTI prevention will need to be enforced. Recommendation is for her PCP to follow up urine culture results within 1 week. Recommendation to follow up with her PCP in 1 week to continue her care. As for her meningioma, recommendation is for the patient to follow up with neurology in 1-2 weeks to establish care and to further address. Home health and physical therapy will be arranged prior to discharge. 3. Patient has hypertension. Patient will continue with her medication-lisinopril 20 mg 1 pill twice daily. Blood pressure stable at this time. Patient did work with physical therapy without symptomatic orthostatic hypotension. Recommendation is to maintain blood pressures less 150/80. Further adjustment can be done by her PCP. Patient is to monitor for changes in her blood pressure. Will recommend to discontinue potassium supplementation. 4. Patient has hypothyroidism. Patient will continue with his medication-levothyroxine 100 mcg daily. 5. Patient has GERD. Patient will continue with Pepcid 20 mg daily. 6. Patient has hyperlipidemia. She will continue with Lipitor 40 mg daily. 7. Patient has gout. She will continue with her medication- allopurinol 100 mg daily. Diet: AHA Activity: Fall precautions Time spent managing pt's care (in minutes): 55
[2018-05-12 16:40] VITALS: BP 155/75; TEMP 97.8
[2018-05-13] MEDS ORDERED: FAMOTIDINE 20 MG TAB PO SCH (09:00)
== END 2018-05-12 17:03 | disposition home health service (06) ==
LOC: ER 13:12 → ERHOLD 16:54 → 4TH 20:43
PROVIDERS: ADMIT Family Medicine; ATTEND Family Medicine
DX: N39.0 Urinary tract infection, site not specified (principal); B96.20 Unspecified Escherichia coli [E. coli] as the cause of diseases classified elsewhere; D32.0 Benign neoplasm of cerebral meninges; I10 Essential (primary) hypertension; E03.9 Hypothyroidism, unspecified; E78.5 Hyperlipidemia, unspecified; K21.9 Gastro-esophageal reflux disease without esophagitis; M10.9 Gout, unspecified; Z88.2 Allergy status to sulfonamides; Z79.82 Long term (current) use of aspirin; Z96.651 Presence of right artificial knee joint
CPT/HCPCS: 36415; 70450; 70544; 70549; 70553; 71045; 80048 ×2; 80061; 80076; 82550 ×2; 82553 ×2; 83605; 83735 ×2; 83880; 84145; 84439; 84443; 84484 ×3; 85025 ×2; 85610; 87040 ×2; 87077; 87086; 87088; 87186; 93005; 93880; 96365; 96375; 97163; 99285; A9577; G0378 ×2; J0696 ×2; J1650 ×2; J3475; J7030 ×2; 81003; 81015

== ENCOUNTER 2018-10-22 12:59 | Observation (INO) | payer OTHER ==
[2018-10-22 13:50] LABS: Absolute Lymphocytes (CBC) 1.7 K/uL (0.7-4.9); Absolute Monocytes 0.4 K/uL (0.1-1.3); Absolute Neutrophil 3.6 K/uL (1.8-8.0); Basophils % 0.4 % (0-1.3); Hematocrit 34.2 % (36.0-45.0); Lymphocytes % 29.8 % (15.3-44.8); MPV 9.4 fL (7.6-11.3); Monocytes % 6.7 % (3.3-12.3); RBC Red Blood Cell Count 3.58 M/uL (3.86-4.86)
[2018-10-22 13:52] LABS: Protime INR 0.96
--- NOTE | 2018-10-22 14:01 | RAD REPORT ---
EXAM DESCRIPTION: CT - Head Brain Wo Cont - 10/22/2018 1:51 pm CLINICAL HISTORY: Alteration of awareness/confusion COMPARISON: April 2018 TECHNIQUE: Computed axial tomography of the head was obtained. IV contrast was not requested. All CT scans are performed using dose optimization technique as appropriate and may include automated exposure control or mA/KV adjustment according to patient size. FINDINGS: The patient's known planum sphenoidale meningioma is not clearly seen on this unenhanced s can. An intracranial bleed is not seen . The ventricles are normal in caliber. No extra-axial fluid collection is noted. Mild low-density areas within periventricular, deep and sub cortical white matter likely represent ischemic changes secondary to small vessel disease. Fluid within the sinuses/ mastoids is not seen. IMPRESSION: No acute intracranial abnormality is seen. If patient's symptoms persist MRI of the bra in would be recommended.
[2018-10-22 14:16] LABS: ALT/SGPT 21 U/L (12-78); AST/SGOT 23 U/L (15-37); Albumin 3.3 g/dL (3.4-5.0); Alkaline Phosphatase 89 U/L (45-117); BUN Blood Urea Nitrogen 27 mg/dL (7-18); Bicarbonate 27 mmol/L (21-32); Bilirubin Direct 0.1 mg/dL (0-0.2); Bilirubin Total 0.6 mg/dL (0.2-1.0); Glucose Level 163 mg/dL (74-106); Magnesium 1.9 mg/dL (1.8-2.4); NT PRO-BNP 18 pg/mL (<450); Potassium 3.4 mmol/L (3.5-5.1); Protein, Total 6.1 g/dL (6.4-8.2); Sodium Level 144 mmol/L (136-145); Troponin (Emerg Dept Use Only) < 0.02 ng/mL (0.0-0.045)
--- NOTE | 2018-10-22 14:31 | RAD REPORT ---
EXAM DESCRIPTION: Priya Single View10/22/2018 2:19 pm CLINICAL HISTORY: Hypertension COMPARISON: August 2018 FINDINGS: The lungs appear clear of acute infiltrate. The heart is normal size IMPRESSION: No acute abnormalities displayed
[2018-10-22] MEDS ORDERED: ONDANSETRON 4 MG/2 ML VIAL ONE (15:00)
--- NOTE | 2018-10-22 15:04 | P.HP ---
Certification for Inpatient Patient admitted to: Observation With expected LOS: <2 Midnights Practitioner: I am a practitioner with admitting privileges, knowledge of patient current condition, hospital course, and medical plan of care. Services: Services provided to patient in accordance with Admission requirements found in Title 42 Section 412.3 of the Code of Federal Regulations Patient History Date of Service: 10/22/18 Reason for admission: Syncopal episode History of Present Illness: This is an 78-year-old female with a past medical history of hypertension, hypothyroidism, hyperlipidemia, GERD and gout admitted for a syncopal episode. Patient was brought into the emergency room after a syncopal episode. She was found slumped over a chair by her son today. It lasted for about 5 min. She denied any significant chest pain, palpitations, shortness of breath, nausea or vomiting. Denies any fevers or chills. Per family her BP has been very dynamic and has been fluctuating. They have been working on adjusting her BP medications. In the ER, she was hemodynamically stable. In no acute distress and mentation was back to baseline. Her blood work was fairly unremarkable. Head CT was negative for any acute abnormalities and her chest x-ray was negative for any acute abnormalities. At the time of my exam, she was alert oriented x3, in no acute distress and hemodynamically stable. Patient was admitted for division for her syncopal episode. Allergies Sulfa (Sulfonamide Antibiotics) Allergy (Verified 07/03/18 16:19) Itching Home medications list reviewed: Yes Home Medications: Allopurinol [Zyloprim*] 100 mg PO DAILY 12/13/17 Atorvastatin Calcium [Lipitor] 40 mg PO DAILY 12/13/17 Lisinopril 20 mg PO BID #60 tablet 12/16/17 Famotidine 20 mg PO DAILY 05/12/18 Levothyroxine [Synthroid*] 112 mcg PO [id number] 05/12/18 Aspirin Chewable [Aspirin Chewable*] 81 mg PO DAILY 07/03/18 Cyanocobalamin [Vitamin B-12] 1,000 mcg PO DAILY 07/03/18 - Past Medical/Surgical History Diabetic: Yes -: Hypothyroidism -: GERD -: Hypertension -: Gout -: hyperlipidemia -: Right knee replacement -: lap rukhsana Psychosocial/ Personal History: Patient currently lives by herself. Her is in an assisted living facility patient receives home health and physical therapy - Family History Mother -: Cancer Notes: breast cancer. lived to be a 104 years old Father -: Other (see notes) Notes: arthritis - Social History Alcohol use: No CD- Drugs: No Caffeine use: Yes Review of Systems 10-point ROS is otherwise unremarkable Physical Examination - Physical Exam General: Alert, In no apparent distress, Oriented x3 HEENT: Atraumatic, PERRLA, Mucous membr. moist/pink, EOMI, Sclerae nonicteric Neck: Supple, 2+ carotid pulse no bruit, No LAD, Without JVD or thyroid abnormality Respiratory: Clear to auscultation bilaterally, Normal air movement Cardiovascular: Regular rate/rhythm, Normal S1 S2 Gastrointestinal: Normal bowel sounds, No tenderness Musculoskeletal: No tenderness Integumentary: No rashes Neurological: Normal gait, Normal speech, Normal strength at 5/5 x4 extr, Normal tone, Normal affect Lymphatics: No axilla or inguinal lymphadenopathy - Studies Laboratory Data (last 24 hrs) 10/22/18 13:30: PT 11.4, INR 0.96 10/22/18 13:30: WBC 5.9, Hgb 11.8 L, Hct 34.2 L, Plt Count 136 L 10/22/18 13:30: Sodium 144, Potassium 3.4 L, BUN 27 H, Creatinine 1.25, Glucose 163 H, Magnesium 1.9, Total Bilirubin 0.6, AST 23, ALT 21, Alkaline Phosphatase 89 Assessment and Plan - Problems (Diagnosis) (1) Syncope Onset Date: 05/12/18 Current Visit: No Status: Acute Plan: Likely secondary to hypotension due to medication adjustments versus dehydration versus orthostatic hypotension Gently hydrate patient with IV fluids Check orthostatics vital signs Patient back to baseline mentation at this time. If continues, will consider getting MRI. Full neurological workup done in April 2018 fairly unremarkable. Qualifiers: Syncope type: unspecified Qualified Code(s): R55 - Syncope and collapse (2) Gout Onset Date: 05/12/18 Current Visit: No Status: Chronic Plan: Stable, continue medication (3) Hypertension Onset Date: 12/15/17 Current Visit: No Status: Chronic Plan: Blood pressure now stable. We will restart home medications and monitor blood pressure. Adjust medications as needed Qualifiers: (4) Hypothyroidism Onset Date: 12/15/17 Current Visit: No Status: Chronic Plan: Stable, continue home medication Qualifiers: (5) GERD (gastroesophageal reflux disease) Onset Date: 12/15/17 Current Visit: No Status: Suspected Plan: Stable, continue home medication Qualifiers: (6) Meningioma Current Visit: Yes Status: Acute Plan: Patient with a history of meningioma, found on MRI in April 2018. Patient has not followed up with neurologist yet. Will encourage patient to follow up outpatient. Unlikely that this is causing the symptoms. - Plan DVT prophylaxis: Lovenox GI prophylaxis: Home medication for reflux Diet: Heart healthy Disposition: Admit to floor for observation with tele. Pending symptomatic improvement and further workup. Anticipate discharge in the next 24 hrs if clinically stable. - Advance Directives Does patient have a Living Will: Yes Does patient have a Durable POA for Healthcare: Yes
--- NOTE | 2018-10-22 15:08 | EDPHYS ---
Physician Documentation [facility] Name: Hadley Landaverde Age: 78 yrs Sex: Female : 1940 Arrival Date: 10/22/2018 Time: 13:01 Bed 25 Private MD: ED Physician Robin Salcido HPI: 10/22 15:00 This 78 yrs old Female presents to ER via EMS with complaints of Syncope. nh 15:00 The patient has experienced syncope, became unresponsive, collapsed. Onset: The nh symptoms/episode began/occurred acutely, just prior to arrival. Duration: This was a single episode, that lasted 30 second(s). Context: the episode(s) was witnessed, by family, son, occurred at home, occurred while the patient was eating, Just prior to the episode the patient experienced no apparent symptoms. Associated injury: The patient did not suffer any apparent associated injury. Associated signs and symptoms: The patient has no apparent associated signs or symptoms. Current symptoms: Currently, the patient is not experiencing any symptoms. The patient has not experienced similar symptoms in the past. The patient has not recently seen a physician. Historical: - Allergies: 13:15 Sulfa (Sulfonamide Antibiotics); la1 - Home Meds: 13:15 amlodipine 10 mg tab 1 tab once daily [Active]; allopurinol 100 mg oral tab 1 tab once la1 daily [Active]; lisinopril-hydrochlorothiazide 20-12.5 mg oral tab 1 tab once daily [Active]; levothyroxine 50 mcg oral tab 1 tab once daily [Active]; famotidine 20 mg oral tab once daily [Active]; mirtazapine 15 mg Oral TbDL 1 tab once daily [Active]; atorvastatin 40 mg oral tab 1 tab once daily [Active]; docusate sodium 100 mg Oral cap 1 cap once daily [Active]; memantine 5 mg oral tab 1 tabs once daily [Active]; - PMHx: 13:15 allergies; Diabetes - NIDDM; GERD; Gout; Hypertension; Hypothyroidism; la1 - Immunization history:: Adult Immunizations up to date, Adult Immunizations. - Social history:: Smoking status: unknown. - Ebola Screening: : No symptoms or risks identified at this time. ROS: 15:00 Constitutional: Negative for fever, chills, and weight loss, Eyes: Negative for injury, nh pain, redness, and discharge, ENT: Negative for injury, pain, and discharge, Neck: Negative for injury, pain, and swelling, Cardiovascular: Negative for chest pain, palpitations, and edema, Respiratory: Negative for shortness of breath, cough, wheezing, and pleuritic chest pain, Abdomen/GI: Negative for abdominal pain, nausea, vomiting, diarrhea, and constipation, Back: Negative for injury and pain, : Negative for injury, bleeding, discharge, and swelling, MS/Extremity: Negative for injury and deformity, Skin: Negative for injury, rash, and discoloration, Psych: Negative for depression, anxiety, suicide ideation, homicidal ideation, and hallucinations, Allergy/Immunology: Negative for hives, rash, and allergies, Endocrine: Negative for neck swelling, polydipsia, polyuria, polyphagia, and marked weight changes, Hematologic/Lymphatic: Negative for swollen nodes, abnormal bleeding, and unusual bruising. 15:00 Neuro: Positive for altered mental status, syncope. Exam: 15:00 Constitutional: This is a well developed, well nourished patient who is awake, alert, nh and in no acute distress. Head/Face: Normocephalic, atraumatic. Eyes: Pupils equal round and reactive to light, extra-ocular motions intact. Lids and lashes normal. Conjunctiva and sclera are non-icteric and not injected. Cornea within normal limits. Periorbital areas with no swelling, redness, or edema. ENT: Nares patent. No nasal discharge, no septal abnormalities noted. Tympanic membranes are normal and external auditory canals are clear. Oropharynx with no redness, swelling, or masses, exudates, or evidence of obstruction, uvula midline. Mucous membranes moist. Neck: Trachea midline, no thyromegaly or masses palpated, and no cervical lymphadenopathy. Supple, full range of motion without nuchal rigidity, or vertebral point tenderness. No Meningismus. Chest/axilla: Normal chest wall appearance and motion. Nontender with no deformity. No lesions are appreciated. Cardiovascular: Regular rate and rhythm with a normal S1 and S2. No gallops, murmurs, or rubs. Normal PMI, no JVD. No pulse deficits. Respiratory: Lungs have equal breath sounds bilaterally, clear to auscultation and percussion. No rales, rhonchi or wheezes noted. No increased work of breathing, no retractions or nasal flaring. Abdomen/GI: Soft, non-tender, with normal bowel sounds. No distension or tympany. No guarding or rebound. No evidence of tenderness throughout. Back: No spinal tenderness. No costovertebral tenderness. Full range of motion. Skin: Warm, dry with normal turgor. Normal color with no rashes, no lesions, and no evidence of cellulitis. MS/ Extremity: Pulses equal, no cyanosis. Neurovascular intact. Full, normal range of motion. Neuro: Awake and alert, GCS 15, oriented to person, place, time, and situation. Cranial nerves II-XII grossly intact. Motor strength 5/5 in all extremities. Sensory grossly intact. Cerebellar exam normal. Normal gait. Psych: Awake, alert, with orientation to person, place and time. Behavior, mood, and affect are within normal limits. Vital Signs: 13:11 BP 120 / 63; Pulse 76; Resp 16; Temp 97.6(O); Pulse Ox 98% on R/A; Weight 54.43 kg; la1 Height 5 ft. 6 in. (167.64 cm); Pain 0/10; 14:52 BP 116 / 74; Pulse 71; Resp 16; Pulse Ox 98% on R/A; la1 15:32 BP 121 / 74; Pulse 71; Resp 16; Temp 98.1; Pulse Ox 98% on R/A; la1 13:11 Body Mass Index 19.37 (54.43 kg, 167.64 cm) la1 MDM: 13:23 Patient medically screened. ak 15:00 Data reviewed: vital signs, nurses notes, lab test result(s), radiologic studies, I ak have discussed the patient's presentation/case with the attending Emergency Department Physician; and as a result, I will admit patient. Counseling: I had a detailed discussion with the patient and/or guardian regarding: the historical points, exam findings, and any diagnostic results supporting the discharge/admit diagnosis, lab results, radiology results, the need for further work-up and treatment in the hospital. Physician consultation: Jose Henry MD was called at 15:06, and will see patient in inpatient room. 10/22 13:20 Order name: Basic Metabolic Panel; Complete Time: 14:24 [facility] 10/22 13:20 Order name: CBC with Diff; Complete Time: 14:24 10/22 13:20 Order name: LFT's; Complete Time: 14:24 wa10/22 13:20 Order name: Magnesium; Complete Time: 14:24 wa10/22 13:20 Order name: NT PRO-BNP; Complete Time: 14:24 wa10/22 13:20 Order name: PT-INR; Complete Time: 14:24 wa10/22 13:20 Order name: Troponin (emerg Dept Use Only); Complete Time: 14:24 10/22 13:20 Order name: XRAY Chest (1 view); Complete Time: 14:35 10/22 13:20 Order name: EKG; Complete Time: 13:21 [facility] 10/22 13:20 Order name: Cardiac monitoring; Complete Time: 13:36 wa10/22 13:20 Order name: EKG - Nurse/Tech; Complete Time: 13:34 [facility] 10/22 13:20 Order name: IV Saline Lock; Complete Time: 13:34 [facility] 10/22 13:25 Order name: CT Head Brain wo Cont; Complete Time: 14:24 ak 10/22 13:20 Order name: Labs collected and sent; Complete Time: 13:34 wa10/22 13:20 Order name: O2 Per Protocol; Complete Time: 13:34 wa10/22 13:20 Order name: O2 Sat Monitoring; Complete Time: 13:34 la1 Administered Medications: 14:50 Drug: Zofran 4 mg Route: IVP; Site: left antecubital; la1 15:33 Follow up: Response: No adverse reaction la1 Disposition: 10/23 09:18 Co-signature as Attending Physician, Robin Salcido MD I agree with the assessment and [facility] plan of care. Disposition: 10/22/18 15:07 Hospitalization ordered by Jose Henry for Observation. Preliminary diagnosis is Syncope and collapse. - Bed requested for Telemetry/MedSurg (observation). - Status is Observation. la1 - Condition is Stable. - Problem is new. - Symptoms are unchanged. UTI on Admission? No Signatures: Dispatcher [employer] EDKS Robin Salcido MD MD cha Cronk, Niki, MARKING DEVICES ASSEMBLER MARKING DEVICES ASSEMBLER Alok Yin em1 Denis Perez, RN RN la1 Corrections: (The following items were deleted from the chart) 10/22 15:10 15:07 Hospitalization Ordered by Jose Henry MD for Observation. Preliminary diagnosis em1 is Syncope and collapse. Bed requested for Telemetry/MedSurg (observation). Status is Observation. Condition is Stable. Problem is new. Symptoms are unchanged. UTI on Admission? No. nh 15:39 15:10 10/22/2018 15:07 Hospitalization Ordered by Jose Henry MD for Observation. la1 Preliminary diagnosis is Syncope and collapse. Bed requested for Telemetry/MedSurg (observation). Status is Observation. Condition is Stable. Problem is new. Symptoms are unchanged. UTI on Admission? No. em1
--- NOTE | 2018-10-22 15:08 | ER ---
Nurse's Notes [facility] Name: Hadley Landaverde Age: 78 yrs Sex: Female : 1940 Arrival Date: 10/22/2018 Time: 13:01 Bed 25 Private MD: Diagnosis: Syncope and collapse Presentation: 10/22 13:09 Presenting complaint: EMS states: Initial call was for CP and SOB but on arrival it la1 seemed more like some confusion vs syncope. VSS, family with conflicting reports of pt baseline mental status currently alert, oriented x3, responds to commands, no focal neurological deficits. Transition of care: patient was not received from another setting of care. Onset of symptoms was October 22, 2018. Risk Assessment: Do you want to hurt yourself or someone else? Patient reports no desire to harm self or others. Initial Sepsis Screen: Does the patient meet any 2 criteria? No. Patient's initial sepsis screen is negative. Does the patient have a suspected source of infection? No. Patient's initial sepsis screen is negative. Care prior to arrival: IV initiated. 13:09 Method Of Arrival: EMS: [facility] la1 13:09 Acuity: RACHEL 3 la1 Historical: - Allergies: 13:15 Sulfa (Sulfonamide Antibiotics); la1 - Home Meds: 13:15 amlodipine 10 mg tab 1 tab once daily [Active]; allopurinol 100 mg oral tab 1 tab once la1 daily [Active]; lisinopril-hydrochlorothiazide 20-12.5 mg oral tab 1 tab once daily [Active]; levothyroxine 50 mcg oral tab 1 tab once daily [Active]; famotidine 20 mg oral tab once daily [Active]; mirtazapine 15 mg Oral TbDL 1 tab once daily [Active]; atorvastatin 40 mg oral tab 1 tab once daily [Active]; docusate sodium 100 mg Oral cap 1 cap once daily [Active]; memantine 5 mg oral tab 1 tabs once daily [Active]; - PMHx: 13:15 allergies; Diabetes - NIDDM; GERD; Gout; Hypertension; Hypothyroidism; la1 - Immunization history:: Adult Immunizations up to date, Adult Immunizations. - Social history:: Smoking status: unknown. - Ebola Screening: : No symptoms or risks identified at this time. Screenin:36 Abuse screen: Denies threats or abuse. Nutritional screening: No deficits noted. la1 Tuberculosis screening: No symptoms or risk factors identified. Fall Risk Fall in past 12 months (25 points). Secondary diagnosis (15 points) IV access (20 points). Ambulatory Aid- Crutches/Cane/Walker (15 pts). Gait- Weak (10 pts.). Mental Status- Oriented to own ability (0 pts). Total Alvarez Fall Scale indicates High Risk Score (45 or more points). Fall prevention measures have been instituted. Family Present and informed to notify staff if the need to leave the bedside As available patient and family educated on Fall Prevention Program and Strategies. Assessment: 13:35 General: Appears in no apparent distress. Behavior is calm, cooperative. Pain: Denies la1 pain. Neuro: Level of Consciousness is awake, alert, obeys commands, Oriented to person, place, time, situation, Numerologist are equal bilaterally Moves all extremities. Gait is steady, Speech is normal, Facial symmetry appears normal, Pupils are PERRLA. Cardiovascular: Denies diaphoresis, shortness of breath, Heart tones S1 S2 present Capillary refill < 3 seconds Patient's skin is warm and dry. Rhythm is regular Chest pain is denied. Respiratory: Airway is patent Respiratory effort is even, unlabored, Respiratory pattern is regular, symmetrical, Breath sounds are clear bilaterally. GI: No signs and/or symptoms were reported involving the gastrointestinal system. : No signs and/or symptoms were reported regarding the genitourinary system. 13:43 Reassessment: Upon arrival family states patient was sitting in her walker and eating a la1 poptart and slumped over, family reports pt lost consciousness and EMS was called, did not fall. Pt reports history of similar episodes multiple times in the last year. 14:51 Reassessment: Patient appears in no apparent distress at this time. No changes from la1 previously documented assessment. Patient and/or family updated on plan of care and expected duration. Pain level reassessed. Patient is alert, oriented x 3, equal unlabored respirations, skin warm/dry/pink. 15:32 Reassessment: Patient appears in no apparent distress at this time. No changes from la1 previously documented assessment. Patient and/or family updated on plan of care and expected duration. Pain level reassessed. Patient is alert, oriented x 3, equal unlabored respirations, skin warm/dry/pink. Vital Signs: 13:11 BP 120 / 63; Pulse 76; Resp 16; Temp 97.6(O); Pulse Ox 98% on R/A; Weight 54.43 kg; la1 Height 5 ft. 6 in. (167.64 cm); Pain 0/10; 14:52 BP 116 / 74; Pulse 71; Resp 16; Pulse Ox 98% on R/A; la1 15:32 BP 121 / 74; Pulse 71; Resp 16; Temp 98.1; Pulse Ox 98% on R/A; la1 13:11 Body Mass Index 19.37 (54.43 kg, 167.64 cm) la1 ED Course: 13:01 Patient arrived in ED. em1 13:09 Denis Perez, RN is Primary Nurse. la1 13:10 Triage completed. la1 13:11 Arm band placed on left wrist. la1 13:23 Katharina Bzazi FNP is PHCP. nh 13:23 Robin Salcido MD is Attending Physician. nh 13:35 Bed in low position. Call light in reach. Side rails up X 1. cardiac monitor technician on. Pulse la1 ox on. NIBP on. 13:36 Maintain EMS IV. Dressing intact. Good blood return noted. Site clean \T\ dry. Gauge \T\ la 1 site: 20g lac. 13:52 CT Head Brain wo Cont In Process Unspecified. EDMS 14:19 XRAY Chest (1 view) In Process Unspecified. EDMS 15:07 Jose Henry MD is Hospitalizing Provider. nh 15:38 No provider procedures requiring assistance completed. Patient admitted, IV remains in la1 place. Administered Medications: 14:50 Drug: Zofran 4 mg Route: IVP; Site: left antecubital; la1 15:33 Follow up: Response: No adverse reaction la1 Outcome: 15:07 Decision to Hospitalize by Provider. nh 15:38 Admitted to Tele accompanied by tech, via stretcher, room 413. la1 15:38 Condition: stable 15:38 Instructed on the need for admit. 15:39 Patient left the ED. la1 Signatures: Dispatcher [employer] EDMS Katharina Bazzi FNP RETAIL DEPARTMENT MANAGER Alok Yin em1 Attema, Denis, RN RN la1
[2018-10-22] MEDS ORDERED: POTASSIUM CL SA 10 MEQ TAB PO ONE (16:31)
[2018-10-22] MEDS: NA CHLORIDE 0.9% 1,000 ML IV SCH (16:36)
[2018-10-22] MEDS: ENOXAPARIN 40 MG/0.4 ML SQ SCH (16:50)
[2018-10-22] MEDS ORDERED: DOCUSATE NA 100 MG CAP PO PRN (17:15)
[2018-10-22 17:17] VITALS: BMI 18.7
[2018-10-22] MEDS: ATORVASTATIN 40 MG TAB PO SCH (20:00)
[2018-10-22] MEDS: MEMANTINE HCL 10 MG TABLET PO SCH (20:00)
[2018-10-23 02:06] LABS: Urine Appearance CLOUDY; Urine Bilirubin NEGATIVE (NEG); Urine Blood NEGATIVE (NEG); Urine Color YELLOW; Urine Glucose NEGATIVE (NEG); Urine Protein NEGATIVE (NEG)
[2018-10-23 02:07] LABS: Urine Microscopic Reflex ORDER UMIC
[2018-10-23 02:21] LABS: Urine Bacteria LOADED /HPF (<20); Urine Culture Reflex Order REFLEXED; Urine RBC NONE SEEN /HPF (NONE SEEN)
[2018-10-23] MEDS: TEMAZEPAM 15 MG CAP PO PRN ×2 (02:30→20:19)
[2018-10-23] MEDS: NA CHLORIDE 0.9% 1,000 ML IV SCH ×2 (05:46→18:30)
[2018-10-23 06:08] LABS: Absolute Lymphocytes (CBC) 1.9 K/uL (0.7-4.9); Absolute Monocytes 0.6 K/uL (0.1-1.3); Basophils % 0.5 % (0-1.3); Eosinophils % 1.3 % (0-4.4); Hematocrit 29.4 % (36.0-45.0); Lymphocytes % 29.2 % (15.3-44.8); MPV 9.5 fL (7.6-11.3); Monocytes % 8.6 % (3.3-12.3); RBC Red Blood Cell Count 3.11 M/uL (3.86-4.86)
[2018-10-23] MEDS: LEVOTHYROXINE SOD 0.05 MG TABLET PO SCH (06:14)
[2018-10-23 06:20] LABS: Albumin 2.8 g/dL (3.4-5.0); Bilirubin Total 0.3 mg/dL (0.2-1.0); Phosphorus 2.9 mg/dL (2.5-4.9); Potassium 4.4 mmol/L (3.5-5.1); Protein, Total 5.4 g/dL (6.4-8.2)
[2018-10-23] MEDS: MEMANTINE HCL 10 MG TABLET PO SCH ×2 (08:42→20:19)
[2018-10-23] MEDS: AMLODIPINE 10 MG TAB PO SCH (08:42)
[2018-10-23] MEDS: LISINOPRIL 20 MG TAB PO SCH (08:42)
[2018-10-23] MEDS: FAMOTIDINE 20 MG TAB PO SCH (08:42)
[2018-10-23] MEDS: hydroCHLOROthiazide 12.5 MG CAP PO SCH (08:43)
[2018-10-23] MEDS: ALLOPURINOL 100 MG TAB PO SCH (08:43)
[2018-10-23] MEDS: MIRTAZAPINE 15 MG TAB PO SCH (08:43)
[2018-10-23] MEDS: CEFTRIAXONE/SWI 1gm 1 GM/10 ML SYR IV SCH (08:48)
[2018-10-23] MEDS ORDERED: HOME MED 1 EA UNK (Lisinopril/Hydrochlorothiazide [Lisinopril-Hctz 20-12.5 Mg Tab] 1 TAB) PO SCH (09:00)
--- NOTE | 2018-10-23 09:20 | EKG ---
Test Date: 2018-10-22 Test Time: 13:05:26 Indoor Plant Technician: NOA MEASUREMENT RESULTS: Intervals: Rate: 75 SD: 176 QRSD: 98 QT: 418 QTc: 466 Shedd: P: 67 SD: 176 QRS: -60 T: 85 INTERPRETIVE STATEMENTS: Normal sinus rhythm Left anterior fascicular block Septal infarct, age undetermined Abnormal ECG Compared to ECG 05/11/2018 13:23:15 Left anterior fascicular block now present Left-axis deviation no longer present Myocardial infarct finding still present Electronically Signed On 10-23-18 09:19:19 CDT by Julian Freedman
--- NOTE | 2018-10-23 17:59 | P.PN ---
Subjective Date of Service: 10/23/18 Chief Complaint: Syncopal episode Patient seen and examined at bedside. No family at bedside. Chart reviewed and case discussed with nursing staff. No acute events noted overnight Reports no complaints this morning Review of Systems 10-point ROS is otherwise unremarkable Physical Examination - Vital Signs Temperature: 96.9 F Blood Pressure: 131/67 Pulse: 72 Respirations: 16 Pulse Ox (%): 100 - Physical Exam General: Alert, In no apparent distress, Oriented x3, Other (Elderly) HEENT: Atraumatic, PERRLA, EOMI Neck: Supple, JVD not distended Respiratory: Clear to auscultation bilaterally, Normal air movement Cardiovascular: Regular rate/rhythm, Normal S1 S2 Gastrointestinal: Normal bowel sounds, No tenderness Musculoskeletal: No tenderness Integumentary: No rashes Neurological: Normal speech, Normal tone, Normal affect Lymphatics: No axilla or inguinal lymphadenopathy Assessment And Plan - Current Problems (Diagnosis) (1) Syncope Onset Date: 05/12/18 Current Visit: No Status: Acute Plan: Likely secondary to hypotension due to medication adjustments versus dehydration versus orthostatic hypotension Gently hydrate patient with IV fluids Patient back to baseline mentation at this time. If continues, will consider getting MRI. Full neurological workup done in April 2018 fairly unremarkable. Qualifiers: Syncope type: unspecified Qualified Code(s): R55 - Syncope and collapse (2) Gout Onset Date: 05/12/18 Current Visit: No Status: Chronic Plan: Stable, continue medication (3) Hypertension Onset Date: 12/15/17 Current Visit: No Status: Chronic Plan: Blood pressure now stable. We will restart home medications and monitor blood pressure. Adjust medications as needed Qualifiers: (4) Hypothyroidism Onset Date: 12/15/17 Current Visit: No Status: Chronic Plan: Stable, continue home medication Qualifiers: (5) GERD (gastroesophageal reflux disease) Onset Date: 12/15/17 Current Visit: No Status: Suspected Plan: Stable, continue home medication Qualifiers: (6) Meningioma Current Visit: Yes Status: Acute Plan: Patient with a history of meningioma, found on MRI in April 2018. Patient has not followed up with neurologist yet. Will encourage patient to follow up outpatient. Unlikely that this is causing the symptoms. (7) UTI (urinary tract infection) Current Visit: No Status: Suspected Plan: Patient's urine loaded bacteria, pending cultures. Continue IV Rocephin at this time. Qualifiers: Urinary tract infection type: site unspecified Hematuria presence: without hematuria Qualified Code(s): N39.0 - Urinary tract infection, site not specified - Plan DVT prophylaxis: Lovenox GI prophylaxis: Home medication for reflux Diet: Heart healthy Disposition: Pending urine culture swab. Anticipate discharge in the morning once urine cultures to back with oral antibiotics. She worked really well with physical therapy, recommending no further physical therapy need at this time Discharge Plan: Home Plan to discharge in: 24 Hours
[2018-10-23] MEDS: ENOXAPARIN 40 MG/0.4 ML SQ SCH (18:30)
[2018-10-23] MEDS: ATORVASTATIN 40 MG TAB PO SCH (20:19)
[2018-10-24] MEDS: LEVOTHYROXINE SOD 0.05 MG TABLET PO SCH (05:57)
[2018-10-24] MEDS: NA CHLORIDE 0.9% 1,000 ML IV SCH ×2 (05:57→22:02)
[2018-10-24] MEDS: LISINOPRIL 20 MG TAB PO SCH (08:04)
[2018-10-24] MEDS: AMLODIPINE 10 MG TAB PO SCH (08:05)
[2018-10-24] MEDS: MEMANTINE HCL 10 MG TABLET PO SCH ×2 (08:06→22:00)
[2018-10-24] MEDS: MIRTAZAPINE 15 MG TAB PO SCH (08:06)
[2018-10-24] MEDS: FAMOTIDINE 20 MG TAB PO SCH (08:06)
[2018-10-24] MEDS: CEFTRIAXONE/SWI 1gm 1 GM/10 ML SYR IV SCH (08:07)
[2018-10-24] MEDS: ALLOPURINOL 100 MG TAB PO SCH (08:07)
[2018-10-24] MEDS: hydroCHLOROthiazide 12.5 MG CAP PO SCH (08:07)
[2018-10-24] MEDS: ENOXAPARIN 40 MG/0.4 ML SQ SCH (16:02)
[2018-10-24] MEDS: ATORVASTATIN 40 MG TAB PO SCH (22:01)
[2018-10-24] MEDS: TEMAZEPAM 15 MG CAP PO PRN (22:34)
[2018-10-25] MEDS: LEVOTHYROXINE SOD 0.05 MG TABLET PO SCH (05:52)
[2018-10-25 08:19] VITALS: O2SAT 100
[2018-10-25] MEDS: AMLODIPINE 10 MG TAB PO SCH (08:20)
[2018-10-25] MEDS: ALLOPURINOL 100 MG TAB PO SCH (08:20)
[2018-10-25] MEDS: MEMANTINE HCL 10 MG TABLET PO SCH (08:20)
[2018-10-25] MEDS: LISINOPRIL 20 MG TAB PO SCH (08:21)
[2018-10-25] MEDS: FAMOTIDINE 20 MG TAB PO SCH (08:21)
[2018-10-25] MEDS: hydroCHLOROthiazide 12.5 MG CAP PO SCH (08:21)
[2018-10-25] MEDS: MIRTAZAPINE 15 MG TAB PO SCH (08:23)
[2018-10-25] MEDS: CEFTRIAXONE/SWI 1gm 1 GM/10 ML SYR IV SCH (08:23)
[2018-10-25] MEDS: NA CHLORIDE 0.9% 1,000 ML IV SCH (08:24)
[2018-10-25 10:22] VITALS: TEMP 97.4
--- NOTE | 2018-10-25 11:35 | P.DS ---
Admission Date: 10/22/18 Discharge Date: 10/25/18 Primary Care Provider: JAE Diaz; Neurology-Dr. Hicks Disposition: DC HOME/HOME HEALTH CARE Discharge Condition: GOOD Reason for Admission: Syncopal episode Consultations: none Procedures: CT scan: COMPARISON: April 2018 TECHNIQUE: Computed axial tomography of the head was obtained. IV contrast was not requested. All CT scans are performed using dose optimization technique as appropriate and may include automated exposure control or mA/KV adjustment according to patient size. FINDINGS: The patient's known planum sphenoidale meningioma is not clearly seen on this unenhanced scan. An intracranial bleed is not seen . The ventricles are normal in caliber. No extra-axial fluid collection is noted. Mild low-density areas within periventricular, deep and subcortical white matter likely represent ischemic changes secondary to small vessel disease. Fluid within the sinuses/ mastoids is not seen. IMPRESSION: No acute intracranial abnormality is seen. CXR: COMPARISON: August 2018 FINDINGS: The lungs appear clear of acute infiltrate. The heart is normal size IMPRESSION: No acute abnormalities displayed Medical Problem List: Syncope secondary to acute renal insufficiency and UTI, urine culture positive for E coli Hypertension Hyperlipidemia Dementia Hypothyroidism Insomnia History of meningioma GERD Anemia likely chronic Brief History of Present Illness: 78-year-old female presented to the emergency room after syncopal episode. Patient had syncopal episode. Son reports medications have been adjusted for better blood pressure control. Patient found to have a UTI with acute renal insufficiency. Patient admitted for further evaluation. Hospital Course: Patient presented with syncopal episode secondary to acute renal insufficiency and UTI. Patient was started on IV fluids and antibiotic therapy. Urine culture positive for E coli. Patient has improved. Patient back to baseline. No further syncopal episodes. Renal function also within normal range. At discharge patient will continue with keflex 500 mg twice a day for 5 days. UTI prevention education will be provided. Recommend to recheck lab-BMP in 1 week to monitor her progress. At discharge home health will be continued. Patient also has a caregiver. Patient with history of hypertension. Blood pressure medication had been adjusted for strict blood pressure control. This may have contributed to her syncopal episode. In light of her UTI, hydrochlorothiazide will be discontinued. At discharge patient will continue with Norvasc 10 mg daily and lisinopril 20 mg daily. Recommend to hold blood pressure medication if systolic less than 120. Further recommendation is to maintain blood pressure less than 150/80. Due to her age and history of syncope, will recommend not to be aggressive in strict blood pressure control. Recommend to monitor blood pressures daily. Education on orthostatic hypotension and side effect profile of Norvasc and lisinopril will be provided. Further adjustment in medication may be required. This can be further addressed by her PCP. Patient with hyperlipidemia. At discharge she will continue with Lipitor 40 mg daily. Patient with dementia. Patient seen by neurology as an outpatient. Patient will continue with Namenda 5 mg 1 pill twice daily. Recommend to follow up with neurology as directed. Patient with hypothyroidism. Patient will continue with levothyroxine 50 mcg daily. Patient with depression and insomnia. At discharge she may continue with her medication Remeron 15 mg daily and temazepam 15 mg at bedtime as needed for insomnia. Hold medication if with increase sedation. Patient with history of gout. Patient may continue with allopurinol 100 mg daily. Patient with anemia likely chronic. Recommend to continue multi vitamin daily. This can be further addressed by her PCP. Vital Signs/Physical Exam: Temp Pulse Resp BP Pulse Ox 97.4 F 74 18 131/74 100 10/25/18 08:00 10/25/18 08:21 10/25/18 08:00 10/25/18 08:21 10/25/18 08:00 General: Alert, In no apparent distress, Oriented x3, Cooperative HEENT: Atraumatic Neck: Supple Respiratory: Clear to auscultation bilaterally, Normal air movement Cardiovascular: Normal pulses, Regular rate/rhythm Gastrointestinal: Normal bowel sounds, Soft and benign, Non-distended Musculoskeletal: No erythema, No tenderness, No warmth Integumentary: No tenderness/swelling, No erythema, No warmth, No cyanosis Neurological: Normal speech, Normal strength at 5/5 x4 extr, Normal tone, Normal affect Laboratory Data at Discharge: WBC 6.6 K/uL (4.3-10.9) 10/23/18 05:40 Hgb 10.3 g/dL (12.0-15.0) L 10/23/18 05:40 Hct 29.4 % (36.0-45.0) L 10/23/18 05:40 Plt Count 124 K/uL (152-406) L 10/23/18 05:40 PT 11.4 SECONDS (9.5-12.5) 10/22/18 13:30 INR 0.96 10/22/18 13:30 Sodium 144 mmol/L (136-145) 10/23/18 05:40 Potassium 4.4 mmol/L (3.5-5.1) 10/23/18 05:40 BUN 26 mg/dL (7-18) H 10/23/18 05:40 Creatinine 0.94 mg/dL (0.55-1.3) 10/23/18 05:40 Glucose 94 mg/dL (74-106) 10/23/18 05:40 Phosphorus 2.9 mg/dL (2.5-4.9) 10/23/18 05:40 Magnesium 1.9 mg/dL (1.8-2.4) 10/22/18 13:30 Total Bilirubin 0.3 mg/dL (0.2-1.0) 10/23/18 05:40 AST 55 U/L (15-37) H 10/23/18 05:40 ALT 40 U/L (12-78) 10/23/18 05:40 Alkaline Phosphatase 98 U/L (45-117) 10/23/18 05:40 Home Medications: Allopurinol [Zyloprim*] 100 mg PO DAILY 12/13/17 Atorvastatin Calcium [Lipitor] 40 mg PO DAILY 12/13/17 Famotidine 20 mg PO DAILY 05/12/18 Amlodipine [Norvasc*] 1 tab PO DAILY 10/22/18 Docusate Sodium 1 tab PO PRN PRN 10/22/18 Levothyroxine [Synthroid*] 1 tab PO DAILY 10/22/18 Memantine HCl [Namenda] 1 tab PO BID 10/22/18 Mirtazapine [Remeron*] 1 tab PO DAILY 10/22/18 Cephalexin [Keflex] 500 mg PO BID #10 cap 10/25/18 Lisinopril [Prinivil*] 20 mg PO DAILY #30 tab 10/25/18 Multivit with Iron,Minerals [Spectravite Senior] 1 each PO DAILY #90 tablet New Medications: Cephalexin [Keflex] 500 mg PO BID #10 cap Lisinopril [Prinivil*] 20 mg PO DAILY #30 tab Multivit with Iron,Minerals [Spectravite Senior] 1 each PO DAILY #90 tablet Patient Discharge Instructions: 1. Patient will follow up with a PCP within 1 week to follow up this hospitalization. 2. Patient presented with syncopal episode secondary to acute renal insufficiency and UTI. Patient was started on IV fluids and antibiotic therapy. Urine culture positive for E coli. Patient has improved. Patient back to baseline. No further syncopal episodes. Renal function also within normal range. At discharge patient will continue with Keflex 500 mg twice a day for 5 days. UTI prevention education will be provided. Recommend to recheck lab-BMP in 1 week to monitor her progress. Home health will be continued at discharge. Patient to continue with care provider at home. 3. Patient with history of hypertension. Blood pressure medication had been adjusted for strict blood pressure control. This may have contributed to her syncopal episode. In light of her UTI, hydrochlorothiazide will be discontinued. At discharge patient will continue with Norvasc 10 mg daily and lisinopril 20 mg daily. Recommend to hold blood pressure medication if systolic less than 120. Further recommendation is to maintain blood pressure less than 150/80. Due to her age and history of syncope, will recommend not to be aggressive in strict blood pressure control. Recommend to monitor blood pressures daily. Education on orthostatic hypotension and side effect profile of Norvasc and lisinopril will be provided. Further adjustment in medication may be required. This can be further addressed by her PCP. 4. Patient with hyperlipidemia. At discharge she will continue with Lipitor 40 mg daily. 5. Patient with dementia. Patient seen by neurology as an outpatient. Patient will continue with Namenda 5 mg 1 pill twice daily. Recommend to follow up with neurology as directed. 6. Patient with hypothyroidism. Patient will continue with levothyroxine 50 mcg daily. 7. Patient with depression and insomnia. At discharge she may continue with her medication Remeron 15 mg daily and temazepam 15 mg at bedtime as needed for insomnia. Hold medication if with increase sedation. 8. Patient with history of gout. Patient may continue with allopurinol 100 mg daily. 9. Patient with anemia likely chronic. Recommend to continue multi vitamin daily. This can be further addressed by her PCP. Diet: AHA Activity: Fall precautions Time spent managing pt's care (in minutes): 55
[2018-10-25 13:06] VITALS: BP 119/61
== END 2018-10-25 16:30 | disposition home health service (06) ==
LOC: ER 12:59 → ERHOLD 14:54 → 4TH 15:29
PROVIDERS: ADMIT Family Medicine; ATTEND Family Medicine
DX: N39.0 Urinary tract infection, site not specified (principal); B96.20 Unspecified Escherichia coli [E. coli] as the cause of diseases classified elsewhere; N28.9 Disorder of kidney and ureter, unspecified; D32.9 Benign neoplasm of meninges, unspecified; D64.9 Anemia, unspecified; E78.5 Hyperlipidemia, unspecified; E03.9 Hypothyroidism, unspecified; E11.9 Type 2 diabetes mellitus without complications; F03.90 Unspecified dementia, unspecified severity, without behavioral disturbance, psychotic disturbance, mood disturbance, and anxiety; F32.9 Major depressive disorder, single episode, unspecified; G47.00 Insomnia, unspecified; I10 Essential (primary) hypertension; I44.4 Left anterior fascicular block; K21.9 Gastro-esophageal reflux disease without esophagitis; M10.9 Gout, unspecified; R94.31 Abnormal electrocardiogram [ECG] [EKG]; Z79.82 Long term (current) use of aspirin; Z79.899 Other long term (current) drug therapy; Z96.651 Presence of right artificial knee joint; Z90.49 Acquired absence of other specified parts of digestive tract
CPT/HCPCS: 96365 ×4; 96367 ×4; 93005; 87088; 85025 ×2; 87086; 80048; 36415; 83735; 84100; 84132; 85610; 80076; 87077; 87186; 84484; 80053; 83880; 70450; 71045; 97162; 96374; 99285; J1650 ×3; J0696 ×3; J7030 ×6; J2405; G0378 ×2; 81003; 81015

== ENCOUNTER 2019-06-02 13:19 | Observation (INO) | payer OTHER ==
--- NOTE | 2019-06-02 14:14 | RAD REPORT ---
EXAM DESCRIPTION: CT - Head Brain Wo Cont - 06/02/2019 2:04 pm CLINICAL HISTORY: dizziness/confusion COMPARISON: October 2018 TECHNIQUE: Computed axial tomography of the head was obtained. IV contrast was not requested. All CT scans are performed using dose optimization technique as appropriate and may include automated exposure control or mA/KV adjustment according to patient size. FINDINGS: An intracranial bleed is not seen . The ventricles are normal in caliber. No extra-axial fluid collection is noted. Mild low-density areas within periventricular, deep and subcortical white matter likely represent is chemic changes secondary to small vessel disease. Minimal sphenoid sinusitis IMPRESSION: No acute intracranial abnormality is seen. If patient's symptoms persist MRI of the bra in would be recommended. Minimal sphenoid sinusitis
[2019-06-02 14:45] LABS: Absolute Lymphocytes (CBC) 1.2 K/uL (0.7-4.9); Basophils % 0.5 % (0-1.3); Lymphocytes % 11.1 % (15.3-44.8); MPV 8.7 fL (7.6-11.3); RBC Red Blood Cell Count 3.94 M/uL (3.86-4.86)
[2019-06-02 14:51] LABS: Protime INR 0.96
[2019-06-02 15:05] LABS: ALT/SGPT 28 U/L (12-78); AST/SGOT 29 U/L (15-37); Albumin 3.5 g/dL (3.4-5.0); Alkaline Phosphatase 98 U/L (45-117); BUN Blood Urea Nitrogen 24 mg/dL (7-18); Bicarbonate 27 mmol/L (21-32); Bilirubin Direct 0.2 mg/dL (0-0.2); Bilirubin Total 0.5 mg/dL (0.2-1.0); Glucose Level 150 mg/dL (74-106); Magnesium 2.1 mg/dL (1.8-2.4); NT PRO-BNP 40 pg/mL (<450); Protein, Total 6.5 g/dL (6.4-8.2); Sodium Level 143 mmol/L (136-145); Troponin (Emerg Dept Use Only) < 0.02 ng/mL (0.0-0.045)
[2019-06-02] MEDS ORDERED: ONDANSETRON 4 MG/2 ML VIAL IV PRN (15:27)
[2019-06-02] MEDS ORDERED: ALBUTEROL 2.5 MG/3 ML NEB SOL NEB PRN (15:27)
[2019-06-02] MEDS ORDERED: ACETAMINOPHEN 500 MG TAB PO PRN (15:27)
--- NOTE | 2019-06-02 15:28 | ER ---
Nurse's Notes [facility] Name: Hadley Landaverde Age: 79 yrs Sex: Female : 1940 Arrival Date: 06/02/2019 Time: 13:21 Bed 4 Private MD: Diagnosis: Syncope and collapse Presentation: 06/02 13:21 Presenting complaint: EMS states: At the salon, stood up after having hair washed and jl7 felt woozy and sat down and then had a syncopal episode, did not hit head. BP was systolic 134 and HR 90 while sitting, standing systolic 124 and HR 90. Transition of care: patient was not received from another setting of care. Onset of symptoms. Risk Assessment: Do you want to hurt yourself or someone else? Patient reports no desire to harm self or others. Initial Sepsis Screen: Does the patient meet any 2 criteria? No. Patient's initial sepsis screen is negative. Does the patient have a suspected source of infection? No. Patient's initial sepsis screen is negative. Care prior to arrival: None. 13:21 Method Of Arrival: EMS: [facility] 7 13:21 Acuity: RACHEL 3 jl7 Triage Assessment: 13:21 General: Appears in no apparent distress. Behavior is calm, cooperative, appropriate tw2 for age. Neuro: Reports "not remembering passing out but they say i did". Historical: - Allergies: 13:28 Sulfa (Sulfonamide Antibiotics); jl7 - Home Meds: 13:28 allopurinol 100 mg Oral tab 1 tab once daily [Active]; amlodipine 10 mg tab 1 tab once jl7 daily [Active]; atorvastatin 40 mg Oral tab 1 tab once daily [Active]; docusate sodium 100 mg Oral cap 1 cap once daily [Active]; famotidine 20 mg Oral tab once daily [Active]; levothyroxine 50 mcg tab 1 tab once daily [Active]; lisinopril-hydrochlorothiazide 20-12.5 mg Oral tab 1 tab once daily [Active]; memantine 5 mg Oral tab 1 tabs once daily [Active]; mirtazapine 15 mg Oral TbDL 1 tab once daily [Active]; 14:00 Vitamin B-12 500 mcg Oral lozg [Active]; Stool Softener 50 mg oral cap 1 cap once daily tw2 [Active]; - PMHx: 13:28 allergies; Diabetes - NIDDM; GERD; Gout; Hypertension; Hypothyroidism; Dementia; jl7 - Immunization history:: Adult Immunizations unknown. - Social history:: Smoking status: unknown Patient/guardian denies using alcohol, street drugs, The patient lives with family. - Ebola Screening: : No symptoms or risks identified at this time. - Family history:: not pertinent. Screenin:31 Abuse screen: Denies threats or abuse. Nutritional screening: No deficits noted. tw2 Tuberculosis screening: No symptoms or risk factors identified. Fall Risk Secondary diagnosis (15 points) impaired mobility. Assessment: 13:22 General: Appears in no apparent distress. well groomed, Behavior is calm, cooperative, tw2 appropriate for age. Pain: Denies pain. Neuro: Level of Consciousness is awake, alert, obeys commands, Oriented to person, place. Cardiovascular: Heart tones S1 S2 Patient's skin is warm and dry. Respiratory: Airway is patent Respiratory effort is even, unlabored, Respiratory pattern is regular, symmetrical, Breath sounds are clear bilaterally. GI: No signs and/or symptoms were reported involving the gastrointestinal system. Abdomen is flat, Bowel sounds present X 4 quads. : No signs and/or symptoms were reported regarding the genitourinary system. EENT: No signs and/or symptoms were reported regarding the EENT system. Derm: No signs and/or symptoms reported regarding the dermatologic system. Musculoskeletal: Range of motion: intact in all extremities. 13:28 Reassessment: pt requests bedpan at this time, pt placed on bedpan at this time with tw2 call light in reach. 13:32 Pain: Denies pain. Neuro: Level of Consciousness is awake, alert, obeys commands. tw2 Cardiovascular: Rhythm is sinus rhythm with multifocal PVCs. 13:37 Reassessment: pt on bedpan at this time, requests a few more minutes before blood work tw2 can be done, pts daughter at bedside at this time. 14:00 Reassessment: pt taken off of bedpan at this time, large formed stool with loose stool tw2 noted, pt cleaned and redressed, pt moved via stretcher to CT at this time. 15:21 Reassessment: Patient appears in no apparent distress at this time. No changes from tw2 previously documented assessment. Patient and/or family updated on plan of care and expected duration. Pain level reassessed. 16:20 Reassessment: Patient appears in no apparent distress at this time. No changes from tw2 previously documented assessment. Patient and/or family updated on plan of care and expected duration. Pain level reassessed. 17:11 Reassessment: Attempted to call report to floor, receiving nurse unavailable at this hb time. Vital Signs: 13:33 BP 134 / 67; Pulse 89; Resp 19; Temp 97.9(TE); Pulse Ox 98% on R/A; Weight 70.31 kg (R);tw2 15:21 BP 112 / 57; Pulse 97; Resp 20; Pulse Ox 100% on R/A; tw2 16:50 BP 122 / 62; Pulse 84; Resp 17; Pulse Ox 99% on R/A; tw2 ED Course: 13:21 Patient arrived in ED. jl7 13:21 Bed in low position. Side rails up X2. tw2 13:25 Triage completed. jl7 13:30 Avril Leon MD is Attending Physician. ma2 13:30 Arm band placed on right wrist. jl7 13:30 EKG done, by ED staff, reviewed by Avril Leon MD. jb1 13:58 Meagan Mitchell, RN is Primary Nurse. tw2 14:13 XRAY Chest (1 view) In Process Unspecified. EDMS 14:13 CT Head Brain wo Cont In Process Unspecified. EDMS 15:26 Xiao Eugene MD is Hospitalizing Provider. ma2 17:20 No provider procedures requiring assistance completed. Patient admitted, IV remains in hb place. Administered Medications: 16:43 Drug: NS 0.9% 1000 ml Route: IV; Rate: 1 bolus; Site: right antecubital; jl7 17:20 Follow up: IV Status: Infusion continued upon admission tw2 Outcome: 15:27 Decision to Hospitalize by Provider. ma2 17:20 Admitted to Med/surg family with patient, via stretcher, room 201, with chart. hb 17:20 Condition: stable 17:20 Instructed on the need for admit, Demonstrated understanding of instructions. 17:50 Patient left the ED. hb Signatures: Dispatcher [employer] EDMS Marcello Wolf jb1 Blanca Guzmán, BRAYAN RN Meagan Mitchell RN RN tw2 Benjie Alicea RN RN jl7 Avril Leon MD MD ma2 Corrections: (The following items were deleted from the chart) 13:36 13:33 Pulse 89bpm; Resp 22bpm; Pulse Ox 98% RA; tw2 tw2 19:38 13:33 BP 134 / 67; Pulse 89bpm; Resp 19bpm; Pulse Ox 98% RA; tw2 tw2 19:40 13:37 Reassessment: pt on bedpan at this time, requests a few more minutes before blood tw2 work can be done tw2
--- NOTE | 2019-06-02 15:29 | EDPHYS ---
Physician Documentation [facility] Name: Hadley Landaverde Age: 79 yrs Sex: Female : 1940 Arrival Date: 06/02/2019 Time: 13:21 Bed 4 Private MD: ED Physician Avril Leon HPI: 06/02 15:25 This 79 yrs old Female presents to ER via EMS with complaints of Syncope. ma2 15:25 The patient has experienced syncope. Onset: The symptoms/episode began/occurred ma2 gradually, 2 day(s) ago. Duration: This was a single episode. Associated signs and symptoms: Pertinent negatives: ataxia, blurred vision, confusion, diarrhea. Current symptoms: confusion. The patient has not experienced similar symptoms in the past. Historical: - Allergies: 13:28 Sulfa (Sulfonamide Antibiotics); jl7 - Home Meds: 13:28 allopurinol 100 mg Oral tab 1 tab once daily [Active]; amlodipine 10 mg tab 1 tab once jl7 daily [Active]; atorvastatin 40 mg Oral tab 1 tab once daily [Active]; docusate sodium 100 mg Oral cap 1 cap once daily [Active]; famotidine 20 mg Oral tab once daily [Active]; levothyroxine 50 mcg tab 1 tab once daily [Active]; lisinopril-hydrochlorothiazide 20-12.5 mg Oral tab 1 tab once daily [Active]; memantine 5 mg Oral tab 1 tabs once daily [Active]; mirtazapine 15 mg Oral TbDL 1 tab once daily [Active]; 14:00 Vitamin B-12 500 mcg Oral lozg [Active]; Stool Softener 50 mg oral cap 1 cap once daily tw2 [Active]; - PMHx: 13:28 allergies; Diabetes - NIDDM; GERD; Gout; Hypertension; Hypothyroidism; Dementia; jl7 - Immunization history:: Adult Immunizations unknown. - Social history:: Smoking status: unknown Patient/guardian denies using alcohol, street drugs, The patient lives with family. - Ebola Screening: : No symptoms or risks identified at this time. - Family history:: not pertinent. ROS: 15:25 Constitutional: Negative for fever, chills, and weight loss, Cardiovascular: Negative ma2 for chest pain, palpitations, and edema, Respiratory: Negative for shortness of breath, cough, wheezing, and pleuritic chest pain, Abdomen/GI: Negative for abdominal pain, nausea, diarrhea, and constipation, MS/Extremity: Negative for injury and deformity, Skin: Negative for injury, rash, and discoloration, Neuro: Negative for headache, weakness, numbness, tingling, and seizure, Psych: Negative for depression, anxiety, suicide ideation, homicidal ideation, and hallucinations, Allergy/Immunology: Negative for hives, rash, and allergies. Exam: 15:25 Constitutional: This is a well developed, well nourished patient who is awake, alert, ma2 and in no acute distress. Head/Face: Normocephalic, atraumatic. Eyes: Pupils equal round and reactive to light, extra-ocular motions intact. Lids and lashes normal. Conjunctiva and sclera are non-icteric and not injected. Cornea within normal limits. Periorbital areas with no swelling, redness, or edema. ENT: Nares patent. No nasal discharge, no septal abnormalities noted. Tympanic membranes are normal and external auditory canals are clear. Oropharynx with no redness, swelling, or masses, exudates, or evidence of obstruction, uvula midline. Mucous membranes moist. Neck: Trachea midline, no thyromegaly or masses palpated, and no cervical lymphadenopathy. Supple, full range of motion without nuchal rigidity, or vertebral point tenderness. No Meningismus. Chest/axilla: Normal chest wall appearance and motion. Nontender with no deformity. No lesions are appreciated. Cardiovascular: Regular rate and rhythm with a normal S1 and S2. No gallops, murmurs, or rubs. Normal PMI, no JVD. No pulse deficits. Respiratory: Lungs have equal breath sounds bilaterally, clear to auscultation and percussion. No rales, rhonchi or wheezes noted. No increased work of breathing, no retractions or nasal flaring. Abdomen/GI: Soft, non-tender, with normal bowel sounds. No distension or tympany. No guarding or rebound. No evidence of tenderness throughout. Back: No spinal tenderness. No costovertebral tenderness. Full range of motion. MS/ Extremity: Pulses equal, no cyanosis. Neurovascular intact. Full, normal range of motion. Neuro: Awake and alert, GCS 15, oriented to person, place, time, and situation. Cranial nerves II-XII grossly intact. Motor strength 5/5 in all extremities. Sensory grossly intact. Cerebellar exam normal. Normal gait. Vital Signs: 13:33 BP 134 / 67; Pulse 89; Resp 19; Temp 97.9(TE); Pulse Ox 98% on R/A; Weight 70.31 kg (R);tw2 15:21 BP 112 / 57; Pulse 97; Resp 20; Pulse Ox 100% on R/A; tw2 16:50 BP 122 / 62; Pulse 84; Resp 17; Pulse Ox 99% on R/A; tw2 MDM: 13:30 Patient medically screened. ma2 15:25 Differential Diagnosis: cardiac arrhythmia, pseudo seizure, transient ischemic attack, ma2 vasovagal episode. Data reviewed: vital signs, nurses notes. Counseling: I had a detailed discussion with the patient and/or guardian regarding: the historical points, exam findings, and any diagnostic results supporting the discharge/admit diagnosis, the presence of at least one elevated blood pressure reading (>120/80) during this emergency department visit, the need for outpatient follow up. Response to treatment: the patient's symptoms have markedly improved after treatment. 06/02 13:31 Order name: Basic Metabolic Panel [facility] 06/02 13:31 Order name: CBC with Diff; Complete Time: 14:51 ma2 06/02 13:31 Order name: LFT's md2 06/02 13:31 Order name: Magnesium; Complete Time: 15:24 ma2 06/02 13:31 Order name: NT PRO-BNP; Complete Time: 15:24 md2 06/02 13:31 Order name: PT-INR; Complete Time: 15:24 md2 06/02 13:31 Order name: Troponin (emerg Dept Use Only); Complete Time: 15:24 ma2 06/02 13:32 Order name: Basic Metabolic Panel; Complete Time: 15:24 EDMS 06/02 13:32 Order name: Liver (Hepatic) Function; Complete Time: 15:24 EDMS 06/02 15:33 Order name: CKMB Creatine Kinase MB EDAZ 06/02 15:33 Order name: CKMB Creatine Kinase MB EDAZ 06/02 15:33 Order name: CKMB Creatine Kinase MB EDAZ 06/02 15:33 Order name: CKMB Creatine Kinase MB EDAZ 06/02 15:33 Order name: Comprehensive Metabolic Panel [facility] 06/02 13:31 Order name: XRAY Chest (1 view) [facility] 06/02 13:46 Order name: CT Head Brain wo Cont; Complete Time: 14:51 md2 06/02 15:33 Order name: Comprehensive Metabolic Panel [facility] 06/02 15:33 Order name: Creatine Phosphokinase [facility] 06/02 15:33 Order name: Creatine Phosphokinase [facility] 06/02 15:33 Order name: Creatine Phosphokinase [facility] 06/02 15:33 Order name: Creatine Phosphokinase [facility] 06/02 15:35 Order name: NT PRO-BNP [facility] 06/02 15:35 Order name: Thyroid Stimulating Hormone [facility] 06/02 15:35 Order name: Urinalysis [facility] 06/02 15:35 Order name: CBC with Automated Diff [facility] 06/02 15:35 Order name: CBC with Automated Diff [facility] 06/02 15:35 Order name: Troponin I [facility] 06/02 15:35 Order name: Troponin I [facility] 06/02 15:35 Order name: Troponin I [facility] 06/02 15:35 Order name: Troponin I [facility] 06/02 13:31 Order name: EKG; Complete Time: 13:32 [facility] 06/02 13:31 Order name: Cardiac monitoring; Complete Time: 14:08 [facility] 06/02 13:31 Order name: EKG - Nurse/Tech; Complete Time: 14:08 [facility] 06/02 13:31 Order name: IV Saline Lock; Complete Time: 14:08 [facility] 06/02 13:31 Order name: Labs collected and sent; Complete Time: 14:40 [facility] 06/02 13:31 Order name: O2 Per Protocol; Complete Time: 14:08 [facility] 06/02 13:31 Order name: O2 Sat Monitoring; Complete Time: 14:08 [facility] 06/02 15:35 Order name: Physical Therapy Consult [facility] 06/02 15:35 Order name: Heart Healthy [facility] 06/02 15:38 Order name: Patient Safety Orders [facility] 06/02 15:38 Order name: Carotid Artery Bilateral EDAZ Administered Medications: 16:43 Drug: NS 0.9% 1000 ml Route: IV; Rate: 1 bolus; Site: right antecubital; jl7 17:20 Follow up: IV Status: Infusion continued upon admission tw2 Disposition: 06/02/19 15:27 Hospitalization ordered by Xiao Eugene for Observation. Preliminary diagnosis is Syncope and collapse. - Bed requested for Telemetry/MedSurg (observation). - Status is Observation. hb - Condition is Stable. - Problem is new. - Symptoms are unchanged. UTI on Admission? No Signatures: Dispatcher [employer] EDMS Kelly Espinoza, RN RN dw Blanca Guzmán, RN RN Meagan Mitchell RN RN tw2 Benjie Alicea RN RN jl7 Avril Leon MD MD md2 Felicita Taavrez Corrections: (The following items were deleted from the chart) 16:01 15:27 Hospitalization Ordered by Xiao Eugene MD for Observation. Preliminary eb diagnosis is Syncope and collapse. Bed requested for Telemetry/MedSurg (observation). Status is Observation. Condition is Stable. Problem is new. Symptoms are unchanged. UTI on Admission? No. ma2 16:16 16:01 06/02/2019 15:27 Hospitalization Ordered by Xiao Eugene MD for Observation. dw Preliminary diagnosis is Syncope and collapse. Bed requested for Telemetry/MedSurg (observation). Status is Observation. Condition is Stable. Problem is new. Symptoms are unchanged. UTI on Admission? No. eb 17:50 16:16 06/02/2019 15:27 Hospitalization Ordered by Xiao Eugene MD for Observation. hb Preliminary diagnosis is Syncope and collapse. Bed requested for Telemetry/MedSurg (observation). Status is Observation. Condition is Stable. Problem is new. Symptoms are unchanged. UTI on Admission? No. dw
--- NOTE | 2019-06-02 15:37 | RAD REPORT ---
EXAM DESCRIPTION: Priya Single View06/02/2019 2:13 pm CLINICAL HISTORY: Hypertension/syncope COMPARISON: none FINDINGS: The lungs appear clear of acute infiltrate. The heart is normal size IMPRESSION: No acute abnormalities displayed
[2019-06-02] MEDS ORDERED: NA CHLORIDE 0.9% 1,000 ML ONE (16:42)
[2019-06-02] MEDS ORDERED: DOCUSATE NA 100 MG CAP PO PRN (17:22)
[2019-06-02 18:02] VITALS: BMI 23.5
[2019-06-02] MEDS: NA CHLORIDE 0.9% 1,000 ML IV SCH (18:27)
[2019-06-02] MEDS: HEPARIN 5000 UNIT/ML 1 ML VIAL SQ SCH (18:27)
[2019-06-02] MEDS ORDERED: PNEUMOCOCCAL VACCINE 0.5 ML IMVAC ONE (21:00)
[2019-06-02 21:28] LABS: Urine Appearance CLOUDY; Urine Bilirubin NEGATIVE (NEG); Urine Blood 1+ (NEG); Urine Color YELLOW; Urine Glucose NEGATIVE (NEG); Urine Protein NEGATIVE (NEG); Urine Specific Gravity 1.015 (1.005-1.030); Urine Urobilinogen 0.2 mg/dL (0.2-1.0)
[2019-06-02 21:42] LABS: Urine Microscopic Reflex ORDER UMIC
[2019-06-02 21:49] LABS: Urine Bacteria LOADED /HPF (<20); Urine Culture Reflex Order REFLEXED; Urine RBC <5 /HPF (NONE SEEN)
[2019-06-02 23:59] LABS: CKMB Creatine Kinase MB < 1.0 ng/mL (0.3-3.6); Creatine Phosphokinase 85 U/L (26-192); Troponin I < 0.02 ng/mL (0.0-0.045)
[2019-06-03] MEDS: HEPARIN 5000 UNIT/ML 1 ML VIAL SQ SCH ×2 (00:01→08:21)
--- NOTE | 2019-06-03 02:33 | HP ---
Date of Admission: 06/02/2019 Reason For Admission: Syncopal episode. History Of Present Illness: This is an 79-year-old female, history of hypertension, hypothyroidism, hyperlipidemia, acid reflux, presented with a syncopal episode. 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 Patient does not recall any part of the events. She did not require any aura. There was no tongue bite. She did not have any convulsions. There was no ur ine or stool incontinence. She does not remember for how long she was out, but this was very brief a ccording to her daughter, who was not there. There was no chest pain or palpitation. There was no s hortness of breath. No nausea or vomiting. In the emergency room, she was evaluated and her vital s igns were stable. Blood pressure 134/[address] of the head done was negative. Chest x-ray was negative. Patient was admitted a couple of times earlier last October and last April with similar situation. She had an echocardiogram done recently in 2018, was normal. She had a schneider tid Doppler done in April 2018, was normal also. She was followed by Dr. Wolfe, who is her card iologist. Currently, she is fully awake, alert, without any complaints. Past Medical History: Significant for hypothyroidism, acid reflux, hypertension, gout, hyperlipidemi a. Past Surgical History: Significant for right knee pain and cholecystectomy. Allergies: TO SULFA. Social History: She is single. Has been living in assisted living. She does not drink, smoke, or u se any drugs. Family History: Father of unknown etiology. Mother of old age, but she had history of rafita ast cancer. Review of Systems: Denies any fever, chills, night sweats, dizziness, headache, lightheaded, blurry vision. There is no change in weight or appetite. She does not have any cough or sputum. There is no chest pain, palpi tations, PND, orthopnea, dyspnea on exertion. No nausea, vomiting, abdominal pain, change in bowel m ovement, diarrhea, constipation, dysuria, frequency, urgency, hematuria. There is no history of depr ession, anxiety, seizure, or stroke. Physical Examination: Vital Signs: Blood pressure is 112/57, respiratory rate 20, pulse 97, saturating 100% on room air. General: She is alert and oriented x3. Does not look in any distress. HEENT: Atraumatic, normocephalic. PERRLA. Oral mucosa moist. Neck: Supple. No JVD. No carotid bruits. Chest: Clear to auscultation. Good air entry. Heart: Regular rate and rhythm. S1, S2 normal. No gallop or murmur. Abdomen: Soft, nontender. No masses. No hepatosplenomegaly. Positive bowel sounds. Extremities: No clubbing, no edema. No calf tenderness. Neurologic: Grossly intact. Cranial exam 2 through 12 intact. Normal sensation. Normal reflexes. Normal muscle strength. Home Medications: According to the emergency room list: Allopurinol 100 mg once a day, amlodipine 1 0 mg once a day, atorvastatin or Lipitor 40 mg once a day, Colace 100 mg once a day, famotidine 20 mg once a day, Synthroid 50 mcg once a day, lisinopril/hydroc hlorothiazide 20/12.5 mg daily, memantine 5 mg daily, mirtazepine 50 mg orally, vitamin B12. Laboratory Studies: Current labs: CBC was normal except for platelets of 125. Chemistry was normal except for BUN of 24, creatinine 1.69, GFR of 29, glucose of 150. CAT scan negative. Chest x-ray n egative. Assessment And Plan: This is an 79-year-old female with history of hypertension, hyperthyroidism, ac id reflex, hyperlipidemia, presented with syncopal episode. 1.Syncope, etiology unclear? vasovagal. Patient had 2 admissions previously for syncope with inconc lusive workup and they thought at that time secondary to orthostatic hypotension. I will consult Car diology to see if they think considering a Holter monitor to evaluate for arrhythmia, which can cause occasionally syncopal episode. Dr. Wolfe is on-call and he is patient's ammunition officer in the clini c. In the meantime, we will check cardiac enzymes and rule that out. I will not order a carotid Dop pler as she had normal last year, echo as well was normal, so I would not order that. Patient's bloo d pressure is normal so I will resume her blood pressure medication at home. 2.Hypothyroidism. We will resume her Synthroid. 3.History of gout. We will resume her allopurinol. 4.Hyperlipidemia: We will resume her Lipitor. 5.Deep vein thrombosis prophylaxis, on heparin given renal insufficiency. 6.Acute renal failure, questionable dehydration, which can be also causing her syncope. I will keep her on fluids with normal saline 75 mL/hour. Patient is full code. WILLAM/NERI Voice ID: [id number]
[2019-06-03] MEDS: NA CHLORIDE 0.9% 1,000 ML IV SCH ×2 (02:42→05:20)
[2019-06-03] MEDS ORDERED: LEVOTHYROXINE SOD 0.05 MG TABLET PO SCH (06:30)
[2019-06-03 06:38] LABS: Absolute Lymphocytes (CBC) 1.6 K/uL (0.7-4.9); Basophils % 0.2 % (0-1.3); Hematocrit 34.3 % (36.0-45.0); Lymphocytes % 16.7 % (15.3-44.8); MPV 8.6 fL (7.6-11.3); RBC Red Blood Cell Count 3.61 M/uL (3.86-4.86)
[2019-06-03 07:00] LABS: Albumin 3.1 g/dL (3.4-5.0); Bilirubin Total 0.5 mg/dL (0.2-1.0); Potassium 4.3 mmol/L (3.5-5.1); Protein, Total 6.1 g/dL (6.4-8.2)
[2019-06-03 07:03] LABS: CKMB Creatine Kinase MB < 1.0 ng/mL (0.3-3.6); Creatine Phosphokinase 81 U/L (26-192); Troponin I < 0.02 ng/mL (0.0-0.045)
[2019-06-03 07:07] VITALS: TEMP 98.9
[2019-06-03 08:14] VITALS: BP 136/65
[2019-06-03] MEDS ORDERED: allopurinoL 100 MG TAB PO SCH (09:00)
[2019-06-03] MEDS ORDERED: lisinopriL 20 MG TAB PO SCH (09:00)
[2019-06-03] MEDS ORDERED: ATORVASTATIN 40 MG TAB PO SCH (09:00)
[2019-06-03] MEDS ORDERED: AMLODIPINE 10 MG TAB PO SCH (09:00)
[2019-06-03 10:11] VITALS: O2SAT 98
--- NOTE | 2019-06-04 00:10 | DS ---
Date of Discharge: 06/03/2019 Discharge Diagnoses: 1.Syncopal episode, most likely vasovagal. 2.Hypothyroidism. 3.History of gout. 4.Hyperlipidemia. 5.Renal insufficiency. Consult: Cardiology. Procedure: CT of the head was negative. History Of Present Illness: Please refer to my H and P yesterday. Hospital Course: Initially, the patient presented with history of syncopal witnessed at [facility] . The patient does not have any signs of seizure, no convulsion. No urine or stool incontinence. N o weakness or loss of sensation. No confusion. The patient cannot recall any part of the episode. In the ER, she was evaluated. CAT scan of the head was negative. She was observed over 24 hours on telemetry. Cardiac enzymes were negative. Cardiology consult requested and given that the patient pr eviously had echocardiogram and carotid Dopplers, there was no further workup repeated and Dr. Harish jackson advised to discharge the patient home and stop hydrochlorothiazide which we did. She will be resum ed on her home medications. She will follow up with Dr. Wolfe as outpatient. Dr. Wolfe's note i s still pending, but may be should consider Holter monitor as outpatient. Otherwise she will be disc harged in stable condition. Discharge Diet: Cardiac. Discharge Followup: With primary care physician in this week. Follow up with Dr. Wolfe in 1 week. Discharge Activity: As tolerated. Discharge Physical Exam: Vital Signs: Blood pressure is 136/65, respiratory rate 16, pulse 84, temp erature 98.9, saturating 98% on room air. General: The patient is alert and oriented x3. Does not look in any distress. HEENT: Atraumatic, normocephalic. PERRLA. Oral mucosa is moist. Neck: Supple. No JVD. No carotid bruits. Chest: Clear to auscultation. Good air entry. Heart: Regular rate and rhythm S1, S2 normal. No gallop or murmur. Abdomen: Soft, nontender. No masses. No hepatosplenomegaly. Positive bowel sounds. Extremities: No clubbing, cyanosis, or edema. No calf tenderness. Neurologic: Grossly intact. Cranial exam 2 through 12 intact. Normal sensation. Normal reflexes. Normal muscle strength. Medications: There was no new prescription. Home Medications: Allopurinol 100 mg orally once a day , amlodipine 10 mg once a day, lovastatin 40 mg once a day, Colace 100 mg once a day, famotidine 20 m g daily, Synthroid 50 mcg once a day, Namenda 10 mg twice a day, Remeron 50 mg at bedtime, lisinopril 20 mg daily, multivitamin 1 tablet every day. The patient has received physical therapy and she did very well. She will be discharged today in sta ble condition. TAMERA Voice ID: [id number] Report ID: [id number]
--- NOTE | 2019-06-04 10:41 | CON ---
Date of Consultation: 06/03/2019 Reason For Consultation: Syncope. History Of Present Illness: Ms. Landaverde is 79, has multiple medical problems including hypertensi on, diabetes, dyslipidemia, hypothyroidism, dementia, gastroesophageal reflux disease, and gout. Carmen arently was having her hair done and does not remember what happened, but apparently she had a syncop al episode. She denied having any chest pain, nausea, vomiting, diaphoresis, PND, orthopnea, pedal e itz, or palpitations. She did recognize whom she was in her surrounding after she woke up. There w ere no history given as far as possible seizure is concerned. She did not have any incontinence, did not bite her tongue. She had denied any fever or chills. She had taken her medications in the morn ing. Allergies: INCLUDE SULFA. Review of Systems: Negative. Social History: Negative. Family History: Negative. Medications: At home include Namenda, allopurinol, Synthroid, Norvasc, Lipitor, Prinivil with hydroc hlorothiazide. Physical Examination: General: She was pleasant, laughing, alert and oriented x3. No complaint. Sinus rhythm. HEENT: Negative. Neck: Supple without any bruit, lymphadenopathy, JVD, or thyromegaly. Chest: Clear to auscultation and percussion. Cardiac: Revealed a regular rhythm and rate without any murmurs, gallops, or rubs. Abdomen: Benign. Extremities: Revealed no clubbing, cyanosis, or edema. Skin: Dry and intact. Neurologic: She was nonfocal. Diagnostic Data: Her creatinine was 1.69, glucose was 150. Her platelet count is 125,000. EKG was normal. Chest x-ray was normal. CT of her head was normal last year. About this time, she had a no rmal echocardiogram and normal carotid Doppler. Impression And Plan: 1.Syncope most likely due to orthostatic hypotension. I certainly would not be too aggressive repea ting cardiac workup. It may be reasonable to repeat an echo and get an event monitor as an outpatien t to make sure we are not dealing with any arrhythmia. For now, I am comfortable with her going home with her home medication, but I would continue the Norvasc and the Prinivil without the diuretic. 2.Dementia, on Namenda. 3.Gout, on allopurinol. 4.Hypothyroidism, on Synthroid. 5.Diabetes, well controlled. 6.Dyslipidemia, well controlled. Case was discussed with nurses and the patient and Dr. Eugene. ALYCIA/MODL Voice ID: [id number] Report ID: [id number]
--- NOTE | 2019-06-04 20:52 | EKG ---
Test Date: 2019-06-02 Test Time: 13:33:42 [employer] Feeder: SAM MEASUREMENT RESULTS: Intervals: Rate: 87 KS: 172 QRSD: 100 QT: 392 QTc: 471 Randall: P: 62 KS: 172 QRS: -55 T: 89 INTERPRETIVE STATEMENTS: Sinus rhythm with occasional premature ventricular complexes Left anterior fascicular block Left ventricular hypertrophy with repolarization abnormality Abnormal ECG Compared to ECG 10/22/2018 13:05:26 Ventricular premature complex(es) now present Left ventricular hypertrophy now present Early repolarization now present Myocardial infarct finding no longer present Electronically Signed On 06-04-19 20:47:12 SHUFFLE BOARD OPERATOR by Perez Wolfe
== END 2019-06-03 13:22 | disposition home health service (06) ==
LOC: SUPCPDRO 13:19 → ER 13:19 → ERHOLD 17:03 → 2ND 17:07
PROVIDERS: ADMIT Internal Medicine; ATTEND Internal Medicine
DX: R55 Syncope and collapse (principal); E03.9 Hypothyroidism, unspecified; M10.9 Gout, unspecified; E78.5 Hyperlipidemia, unspecified; N28.9 Disorder of kidney and ureter, unspecified; Z88.2 Allergy status to sulfonamides; Z23 Encounter for immunization
CPT/HCPCS: 93005; 87088; 85025 ×2; 87086; 80048; 36415 ×2; 83735; 82550 ×2; 85610; 80076; 84443; 87077; 87186; 84484 ×3; 82553 ×2; 80053; 83880 ×2; 70450; 71045; 90471; 90670; 97116; 97161; 97530; 94760 ×2; 96360; 99285; J1644 ×3; J7030 ×2; G0378 ×3; 81003; 81015

== ENCOUNTER 2019-06-15 14:57 | Observation (INO) | payer OTHER ==
[2019-06-15 16:08] LABS: Absolute Lymphocytes (CBC) 1.2 K/uL (0.7-4.9); Basophils % 0.2 % (0-1.3); Hematocrit 38.4 % (36.0-45.0); Lymphocytes % 9.4 % (15.3-44.8); MPV 8.3 fL (7.6-11.3); RBC Red Blood Cell Count 3.99 M/uL (3.86-4.86)
--- NOTE | 2019-06-15 16:09 | RAD REPORT ---
EXAM DESCRIPTION: CT - Head C Spine Mpr Wo Con - 06/15/2019 3:38 pm CLINICAL HISTORY: Head and neck injury status post fall. Head and neck pain COMPARISON: 2016 TECHNIQUE: Computed axial tomography of the head and cervical spine was obtained. Sagittal and coronal reconstruction was performed. All CT scans are performed using dose optimization technique as appropriate and may include automated exposure control or mA/KV adjustment according to patient size. FINDINGS: Left scalp hematoma An intracranial bleed is not seen. The ventricles are normal in caliber. An extra-axial fluid collect ion is not noted.Fluid within the visualized sinuses and mastoids is not seen A cervical fracture is not visualized. No dislocation is noted. Spondylosis involves the cervical spi ne. Chronic anterior subluxation C3 on C4 and C4 on C5 IMPRESSION: No acute intracranial abnormality is seen. A cervical fracture is not visualized. If the patient continues to have symptoms to suggest intracra nial /spinal cord pathology then MRI would be recommended
[2019-06-15 16:10] LABS: Protime INR 0.92
[2019-06-15 16:24] LABS: ALT/SGPT 32 U/L (12-78); AST/SGOT 29 U/L (15-37); Albumin 3.3 g/dL (3.4-5.0); Alkaline Phosphatase 104 U/L (45-117); BUN Blood Urea Nitrogen 26 mg/dL (7-18); Bicarbonate 24 mmol/L (21-32); Bilirubin Direct < 0.1 mg/dL (0-0.2); Bilirubin Total 0.3 mg/dL (0.2-1.0); Glucose Level 148 mg/dL (74-106); Magnesium 2.2 mg/dL (1.8-2.4); NT PRO-BNP 22 pg/mL (<450); Potassium 4.3 mmol/L (3.5-5.1); Protein, Total 6.6 g/dL (6.4-8.2); Sodium Level 143 mmol/L (136-145); Troponin (Emerg Dept Use Only) < 0.02 ng/mL (0.0-0.045)
[2019-06-15] MEDS ORDERED: NA CHLORIDE 0.9% 1,000 ML ONE ×2 (16:43→17:50)
[2019-06-15] MEDS ORDERED: ACETAMINOPHEN 325 MG TABLET ONE (16:43)
[2019-06-15 17:07] LABS: Urine Blood NEGATIVE (NEG); Urine Glucose NEGATIVE (NEG); Urine Protein TRACE (NEG)
[2019-06-15] MEDS ORDERED: CEFTRIAXONE/SWI 1gm 1 GM/10 ML SYR ONE (17:30)
[2019-06-15 17:52] LABS: Urine RBC <5 /HPF (NONE SEEN)
[2019-06-15 17:53] LABS: Urine Bacteria >50 /HPF (<20); Urine Culture Reflex Order REFLEXED; Urine Mucus 2+ /HPF (NONE SEEN)
--- NOTE | 2019-06-15 18:06 | ER ---
Nurse's Notes [facility] Name: Hadley Landaverde Age: 79 yrs Sex: Female : 1940 Arrival Date: 06/15/2019 Time: 14:59 Bed 16 Private MD: Diagnosis: Urinary tract infection, site not specified;Other sepsis;Syncope and collapse;Contusion of other part of head Presentation: 06/15 15:07 Presenting complaint: Patient states: Pt reports she was on the toilet, when next the ss she knew she was on the ground. Bruising and small hematoma noted to L side of forehead. - blood thinners. Pt reports she was recently diagnosed with a UTI, and picked up her antibiotics this AM. Care prior to arrival: None. Mechanism of Injury: Fall out of chair. Trauma event details: Injury occurred in the [facility], Injury occurred: at home. 15:07 Acuity: RACHEL 3 ss 15:07 Method Of Arrival: Wheelchair ss 15:09 Transition of care: patient was not received from another setting of care. Onset of ss symptoms was June 15, 2019. Risk Assessment: Do you want to hurt yourself or someone else? Patient reports no desire to harm self or others. Initial Sepsis Screen: Does the patient meet any 2 criteria? No. Patient's initial sepsis screen is negative. Does the patient have a suspected source of infection? No. Patient's initial sepsis screen is negative. Trauma Activation: Not Applicable Physician: ED Physician; Name: ; Notified At: ; Arrived At: Physician: General Surgeon; Name: ; Notified At: ; Arrived At: Physician: Radiology; Name: ; Notified At: ; Arrived At: Physician: Respiratory; Name: ; Notified At: ; Arrived At: Physician: Lab; Name: ; Notified At: ; Arrived At: Historical: - Allergies: 15:10 Sulfa (Sulfonamide Antibiotics); ss - Home Meds: 18:56 allopurinol 100 mg Oral tab 1 tab once daily [Active]; amlodipine 10 mg tab 1 tab once mg2 daily [Active]; atorvastatin 40 mg Oral tab 1 tab once daily [Active]; docusate sodium 100 mg Oral cap 1 cap once daily [Active]; famotidine 20 mg Oral tab once daily [Active]; levothyroxine 50 mcg tab 1 tab once daily [Active]; lisinopril-hydrochlorothiazide 20-12.5 mg Oral tab 1 tab once daily [Active]; memantine 5 mg Oral tab 1 tabs once daily [Active]; mirtazapine 15 mg Oral TbDL 1 tab once daily [Active]; Stool Softener 50 mg Oral cap 1 cap once daily [Active]; Vitamin B-12 500 mcg Oral lozg [Active]; - PMHx: 15:10 allergies; Dementia; Diabetes - NIDDM; GERD; Gout; Hypothyroidism; Hypertension; ss - Immunization history:: Adult Immunizations up to date. - Social history:: Smoking status: Patient/guardian denies using tobacco. - Immunization history: Last tetanus immunization: unknown. - Ebola Screening: : Patient denies exposure to infectious person Patient denies travel to an Ebola-affected area in the 21 days before illness onset. Screenin:07 Abuse screen: Denies threats or abuse. Denies injuries from another. ss 17:35 Nutritional screening: No deficits noted. Tuberculosis screening: No symptoms or risk mg2 factors identified. Fall Risk Fall in past 12 months (25 points). IV access (20 points). Primary Survey: 17:33 NO uncontrolled hemorrhage observed. A: The patient is alert. Breathing/Chest: mg2 Respiratory pattern: regular, Respiratory effort: spontaneous, unlabored, Breath sounds: clear, bilaterally. in mediastinum, right upper lobe, left upper lobe, right middle lobe, left lower lobe and right lower lobe. Circulation: Cardiac rhythm: sinus rhythm Skin color: pink. Disability Alert. Exposure/Environment: All clothing and personal items were removed. Forensic evidence collection is not deemed to be indicated at this time. Items placed in patient belonging bag. There is no evidence of uncontrolled external bleeding. Obvious injury(ies) are noted at this time: bruising and abrasion in the forehead. 18:50 Reassessment Airway Airway Patent Breathing/Chest Respiratory pattern Regular mg2 Respiratory effort Spontaneous Unlabored Breath sounds Clear Chest inspection Symmetrical Circulation Color [place] Disability Alert. Secondary Survey: 17:34 HEENT: No deficits noted. Gastrointestinal: No deficits noted. : Urine is see urine mg2 dip Reports burning with urination. Musculoskeletal: Circulation, motion, and sensation intact. Capillary refill < 3 seconds. Assessment: 15:34 Reassessment: patient sent to ct scan via stretcher with c-collar on. mg2 16:38 General: Appears in no apparent distress. comfortable, Behavior is calm, cooperative. mg2 Pain: Complains of pain in forehead. Neuro: Level of Consciousness is awake, alert, obeys commands, Oriented to person, place, time, situation, Reports headache. Cardiovascular: Capillary refill < 3 seconds Patient's skin is warm and dry. Respiratory: Airway is patent Respiratory effort is even, unlabored, Respiratory pattern is regular, symmetrical. GI: No signs and/or symptoms were reported involving the gastrointestinal system. : No signs and/or symptoms were reported regarding the genitourinary system. EENT: No signs and/or symptoms were reported regarding the EENT system. Derm: Skin is intact, is healthy with good turgor, Skin is pink, warm \T\ dry. normal. Derm: Bruising that is dark purple, on forehead. Musculoskeletal: Circulation, motion, and sensation intact. Capillary refill < 3 seconds. 17:30 Reassessment: Patient appears in no apparent distress at this time. Patient and/or mg2 family updated on plan of care and expected duration. Pain level reassessed. Patient is alert, oriented x 3, equal unlabored respirations, skin warm/dry/pink. 18:57 Reassessment: Patient appears in no apparent distress at this time. Patient and/or mg2 family updated on plan of care and expected duration. Pain level reassessed. Patient is alert, oriented x 3, equal unlabored respirations, skin warm/dry/pink. 20:03 Reassessment: Patient appears in no apparent distress at this time. Patient and/or mg2 family updated on plan of care and expected duration. Pain level reassessed. Patient is alert, oriented x 3, equal unlabored respirations, skin warm/dry/pink. patient informed about the waiitng time for bed in bthe floor. 21:38 Reassessment: Patient appears in no apparent distress at this time. Patient and/or mg2 family updated on plan of care and expected duration. Pain level reassessed. Patient is alert, oriented x 3, equal unlabored respirations, skin warm/dry/pink. daughter Michelle'juan jose [phone]. 22:30 Reassessment: nurse will call me back to receive the report. mg2 Vital Signs: 15:07 BP 137 / 80; Pulse 103; Resp 16; Temp 98.1(TE); Pulse Ox 99% on R/A; Weight 65.77 kg; ss Height 5 ft. 6 in. (167.64 cm); Pain 7/10; 16:00 BP 121 / 66; Pulse 96; Resp 18; Pulse Ox 97% on R/A; mg2 17:00 BP 121 / 60; Pulse 97; Resp 18; Pulse Ox 97% on R/A; mg2 18:50 BP 124 / 63; Pulse 94; Resp 18; Pulse Ox 99% on R/A; mg2 20:04 BP 127 / 70; Pulse 86; Resp 18; Pulse Ox 98% on R/A; mg2 20:30 BP 118 / 66; Pulse 87; Resp 17; Pulse Ox 99% on R/A; rv 21:33 BP 127 / 68; Pulse 82; Resp 18; Temp 98(O); Pulse Ox 98% on R/A; mg2 15:07 Body Mass Index 23.40 (65.77 kg, 167.64 cm) ss [place] Coma Score: 15:07 Eye Response: spontaneous(4). Verbal Response: oriented(5). Motor Response: obeys ss commands(6). Total: 15. 17:00 Eye Response: spontaneous(4). Verbal Response: oriented(5). Motor Response: obeys mg2 commands(6). Total: 15. 18:50 Eye Response: spontaneous(4). Verbal Response: oriented(5). Motor Response: obeys mg2 commands(6). Total: 15. Trauma Score (Adult): 15:07 Eye Response: spontaneous(1); Verbal Response: oriented(1); Motor Response: obeys ss commands(2); Systolic BP: > 89 mm Hg(4); Respiratory Rate: 10 to 29 per min(4); [place] Score: 15; Trauma Score: 12 17:00 Eye Response: spontaneous(1); Verbal Response: oriented(1); Motor Response: obeys mg2 commands(2); Systolic BP: > 89 mm Hg(4); Respiratory Rate: 10 to 29 per min(4); [place] Score: 15; Trauma Score: 12 18:50 Eye Response: spontaneous(1); Verbal Response: oriented(1); Motor Response: obeys mg2 commands(2); Systolic BP: > 89 mm Hg(4); Respiratory Rate: 10 to 29 per min(4); [place] Score: 15; Trauma Score: 12 ED Course: 14:59 Patient arrived in ED. mr 15:02 Robin Mcarthur PA is PHCP. cp 15:02 Dalton Dewey MD is Attending Physician. cp 15:09 Triage completed. ss 15:28 Murali Alvarenga, RN is Primary Nurse. mg2 15:35 Patient has correct armband on for positive identification. customer sales specialist on. Pulse mg2 ox on. NIBP on. Door closed. Warm blanket given. 15:35 No provider procedures requiring assistance completed. mg2 15:50 CT Head C Spine In Process Unspecified. EDMS 16:00 Inserted saline lock: 20 gauge in right forearm, using aseptic technique. Blood mg2 collected. 17:34 Patient maintains SpO2 saturation greater than 95% on room air. mg2 17:35 Arm band placed on. mg2 17:35 Thermoregulation: warm blanket given to patient. mg2 18:02 Deandre Cardenas DO is Hospitalizing Provider. cp 21:38 Patient admitted, IV remains in place. mg2 Administered Medications: 16:29 CANCELLED (Physician Discretion): NS 0.9% 250 ml IV at bolus once cp 16:46 Drug: Tylenol 650 mg Route: PO; mg2 18:02 Follow up: Response: No adverse reaction mg2 16:46 Drug: NS 0.9% 500 ml Route: IV; Rate: bolus; Site: right forearm; mg2 17:26 Follow up: IV Status: Completed infusion; IV Intake: 500ml rv 17:26 Drug: NS 0.9% 1000 ml Route: IV; Rate: 75 ml/hr; Site: right antecubital; rv 23:05 Follow up: Response: No adverse reaction; IV Status: Order to discontinue infusion; IV mg2 Intake: 150ml 17:29 CANCELLED (Physician Discretion): Ibuprofen 600 mg PO once cp 17:32 Drug: Rocephin - (cefTRIAXone) 1 grams Route: IVPB; Infused Over: 30 mins; Site: right mg2 forearm; 23:03 Follow up: Response: No adverse reaction; IV Status: Completed infusion; IV Intake: mg2 2000ml 18:02 Drug: NS 0.9% (30 ml/kg) 30 ml/kg Route: IV; Rate: bolus; Site: right forearm; mg2 23:04 Follow up: Response: No adverse reaction; IV Status: Completed infusion; IV Intake: mg2 1000ml 18:25 Drug: Tylenol-Codeine #3 (300 mg - 30 mg) 1 tabs Route: PO; mg2 23:02 Follow up: Response: No adverse reaction mg2 Intake: 17:26 IV: 500ml; Total: 500ml. rv 21:33 PO: 0ml; Total: 500ml. mg2 23:03 IV: 2000ml; Total: 2500ml. mg2 23:04 IV: 1000ml; Total: 3500ml. mg2 23:05 IV: 150ml; Total: 3650ml. mg2 Outcome: 18:03 Decision to Hospitalize by Provider. cp 23:06 Admitted to Tele accompanied by tech, via wheelchair, room 401, with chart, Report mg2 called to BRAYAN Diez 23:06 Condition: stable 23:06 Instructed on the need for admit, Demonstrated understanding of instructions. 23:06 Patient's length of stay in the Emergency Department was greater than 2 hours. awaiting mg2 for bedPatient's length of stay extended due to 23:07 Patient left the ED. mg2 Signatures: Dispatcher [employer] Sridevi Marin Kassandra Guerra, RN RN ss Robin Mcarthur PA PA cp Murali Alvarenga, BRAYAN RN mg2 Surinder Blackwell RN RN rv
--- NOTE | 2019-06-15 18:08 | EDPHYS ---
Physician Documentation [facility] Name: Hadley Landaverde Age: 79 yrs Sex: Female : 1940 Arrival Date: 06/15/2019 Time: 14:59 Bed 16 Private MD: ED Physician Dalton Dewey HPI: 06/15 15:30 This 79 yrs old Female presents to ER via Wheelchair with complaints of Fall cp Injury, Head Injury With LOC-Adult. 15:30 The patient has experienced syncope, lost consciousness. Onset: The symptoms/episode cp began/occurred just prior to arrival, today. Duration: This was a single episode, that lasted an unknown period of time. Context: the episode(s) was witnessed, by no one, the downtime is unknown, occurred at home, occurred while the patient was in bathroom sitting on toilet. Just prior to the episode the patient experienced no apparent symptoms. Associated injury: Head/face: forehead, abrasion, contusion, Neck: pain. Associated signs and symptoms: Pertinent positives: headache, Pertinent negatives: abdominal pain, chest pain, vomiting, weakness. Current symptoms: headache, that is mild. The patient has experienced similar episodes in the past, multiple times, Daughter reports patient was hospitalized 2 weeks ago after syncopal episode. Patient was hospitalized overnight and evaluated by DR Wolfe. Historical: - Allergies: 15:10 Sulfa (Sulfonamide Antibiotics); ss - Home Meds: 18:56 allopurinol 100 mg Oral tab 1 tab once daily [Active]; amlodipine 10 mg tab 1 tab once mg2 daily [Active]; atorvastatin 40 mg Oral tab 1 tab once daily [Active]; docusate sodium 100 mg Oral cap 1 cap once daily [Active]; famotidine 20 mg Oral tab once daily [Active]; levothyroxine 50 mcg tab 1 tab once daily [Active]; lisinopril-hydrochlorothiazide 20-12.5 mg Oral tab 1 tab once daily [Active]; memantine 5 mg Oral tab 1 tabs once daily [Active]; mirtazapine 15 mg Oral TbDL 1 tab once daily [Active]; Stool Softener 50 mg Oral cap 1 cap once daily [Active]; Vitamin B-12 500 mcg Oral lozg [Active]; - PMHx: 15:10 allergies; Dementia; Diabetes - NIDDM; GERD; Gout; Hypothyroidism; Hypertension; ss - Immunization history:: Adult Immunizations up to date. - Social history:: Smoking status: Patient/guardian denies using tobacco. - Immunization history: Last tetanus immunization: unknown. - Ebola Screening: : Patient denies exposure to infectious person Patient denies travel to an Ebola-affected area in the 21 days before illness onset. ROS: 15:35 Constitutional: Negative for body aches, chills, fever, poor PO intake. cp 15:35 Neck: Positive for pain with movement, tenderness. cp 15:35 Cardiovascular: Negative for chest pain, edema, palpitations. 15:35 Respiratory: Negative for cough, shortness of breath, wheezing. 15:35 Abdomen/GI: Negative for abdominal pain, vomiting, diarrhea, constipation, black/tarry stool, rectal bleeding. 15:35 Back: Negative for pain at rest, pain with movement. 15:35 Skin: Negative for rash. 15:35 Neuro: Positive for headache, loss of consciousness, syncope, Negative for altered mental status. 15:35 All other systems are negative. Exam: 15:40 ECG was reviewed by the Attending Physician. cp 15:43 Constitutional: The patient appears in no acute distress, alert, awake, cp non-diaphoretic, non-toxic, well developed, well nourished. 15:43 Eyes: Pupils equal round and reactive to light, extra-ocular motions intact. Lids and cp lashes normal. Conjunctiva and sclera are non-icteric and not injected. Cornea within normal limits. Periorbital areas with no swelling, redness, or edema. 15:43 ENT: Nares patent. No nasal discharge, no septal abnormalities noted. Tympanic membranes are normal and external auditory canals are clear. Oropharynx with no redness, swelling, or masses, exudates, or evidence of obstruction, uvula midline. Mucous membranes moist. 15:43 Head/face: Noted is abrasion(s), that are mild, of the forehead, contusion, that is superficial, of the forehead. 15:43 Neck: C-spine: C-collar placed in ED, vertebral tenderness, that is mild, appreciated at C5 and C6, crepitus, is not appreciated. 15:43 Chest/axilla: Inspection: normal, Palpation: is normal, no crepitus, no tenderness. 15:43 Cardiovascular: Rate: tachycardic, Rhythm: regular, Edema: is not appreciated, JVD: is not appreciated. 15:43 Respiratory: the patient does not display signs of respiratory distress, Respirations: normal, no use of accessory muscles, no retractions, no splinting, no tachypnea, labored breathing, is not present, Breath sounds: are clear throughout, no decreased breath sounds, no stridor, no wheezing. 15:43 Abdomen/GI: Inspection: abdomen appears normal, Bowel sounds: active, all quadrants, Palpation: abdomen is soft and non-tender, in all quadrants, voluntary guarding, is not appreciated. 15:43 Back: pain, is absent, ROM is normal. 15:43 Musculoskeletal/extremity: Exam is negative for decreased range of motion, deformity. 15:43 Neuro: Orientation: to person, place, situation, Mentation: no acute changes, per family, Cerebellar function: is grossly normal, Motor: moves all fours, strength is normal, Sensation: is normal. Vital Signs: 15:07 BP 137 / 80; Pulse 103; Resp 16; Temp 98.1(TE); Pulse Ox 99% on R/A; Weight 65.77 kg; ss Height 5 ft. 6 in. (167.64 cm); Pain 7/10; 16:00 BP 121 / 66; Pulse 96; Resp 18; Pulse Ox 97% on R/A; mg2 17:00 BP 121 / 60; Pulse 97; Resp 18; Pulse Ox 97% on R/A; mg2 18:50 BP 124 / 63; Pulse 94; Resp 18; Pulse Ox 99% on R/A; mg2 20:04 BP 127 / 70; Pulse 86; Resp 18; Pulse Ox 98% on R/A; mg2 20:30 BP 118 / 66; Pulse 87; Resp 17; Pulse Ox 99% on R/A; rv 21:33 BP 127 / 68; Pulse 82; Resp 18; Temp 98(O); Pulse Ox 98% on R/A; mg2 15:07 Body Mass Index 23.40 (65.77 kg, 167.64 cm) [place] Coma Score: 15:07 Eye Response: spontaneous(4). Verbal Response: oriented(5). Motor Response: obeys commands(6). Total: 15. 17:00 Eye Response: spontaneous(4). Verbal Response: oriented(5). Motor Response: obeys mg2 commands(6). Total: 15. 18:50 Eye Response: spontaneous(4). Verbal Response: oriented(5). Motor Response: obeys mg2 commands(6). Total: 15. Trauma Score (Adult): 15:07 Eye Response: spontaneous(1); Verbal Response: oriented(1); Motor Response: obeys ss commands(2); Systolic BP: > 89 mm Hg(4); Respiratory Rate: 10 to 29 per min(4); [place] Score: 15; Trauma Score: 12 17:00 Eye Response: spontaneous(1); Verbal Response: oriented(1); Motor Response: obeys mg2 commands(2); Systolic BP: > 89 mm Hg(4); Respiratory Rate: 10 to 29 per min(4); [place] Score: 15; Trauma Score: 12 18:50 Eye Response: spontaneous(1); Verbal Response: oriented(1); Motor Response: obeys mg2 commands(2); Systolic BP: > 89 mm Hg(4); Respiratory Rate: 10 to 29 per min(4); [place] Score: 15; Trauma Score: 12 MDM: 15:20 Patient medically screened. 18:00 Data reviewed: vital signs, nurses notes, lab test result(s), EKG, radiologic studies, cp CT scan. 18:00 Test interpretation: by ED physician or midlevel provider: ECG. Counseling: I had a cp detailed discussion with the patient and/or guardian regarding: the historical points, exam findings, and any diagnostic results supporting the discharge/admit diagnosis, lab results, radiology results, the need for further work-up and treatment in the hospital. Response to treatment: the patient's symptoms have mildly improved after treatment. 18:00 Physician consultation: Deandre Cardenas DO was called at 17:55, was contacted at 17:55, regarding admission, to the telemetry unit. patient's condition. 06/15 15:21 Order name: Basic Metabolic Panel; Complete Time: 16:28 06/15 16:28 Interpretation: Normal except: CL 109; GLUC 148; BUN 26; CRE 1.61; GFR 31. 06/15 15:21 Order name: CBC with Diff; Complete Time: 16:23 06/15 16:23 Interpretation: Normal except: WBC 12.6; PLT 166; JAZMINE% 85.0; LYM% 9.4; NEUT A 10.7. cp / 15:21 Order name: LFT's; Complete Time: 16:28 cp / 16:28 Interpretation: Normal except: ALB 3.3; A/G 1.0. cp / 15:21 Order name: Magnesium; Complete Time: 16:28 cp / 15:21 Order name: NT PRO-BNP; Complete Time: 16:28 cp / 15:21 Order name: PT-INR; Complete Time: 16:23 cp / 15:21 Order name: Troponin (emerg Dept Use Only); Complete Time: 16:28 cp 06/15 16:29 Interpretation: Within normal limits: TROPED < 0.02. cp / 15:23 Order name: Urine Microscopic Only; Complete Time: 18:06 cp 06/15 18:06 Interpretation: Normal except: UWBC 20-50; UBACT >50; SQEPI 5-10. cp / 15:23 Order name: Procalcitonin; Complete Time: 16:51 cp 06/15 16:51 Interpretation: Reviewed. cp 06/15 15:23 Order name: Lactate; Complete Time: 16:30 cp 06/15 16:30 Interpretation: Abnormal: LAC 3.0. cp / 16:52 Order name: Urine Dipstick--Ancillary (enter results); Complete Time: 17:26 em1 06/15 17:26 Interpretation: Normal except: U NIT POSITIVE; UESTR 1+. cp 06/15 17:27 Order name: Urine Culture cp 06/15 18:02 Order name: Blood Culture Adult (2) cp 06/15 19:11 Order name: Lactate Sepsis 2 HR Follow-up EDMS 06/15 15:21 Order name: CT Head C Spine; Complete Time: 16:23 cp 06/15 16:24 Interpretation: Reviewed report. cp 06/15 21:54 Order name: CBC with Automated Diff EDMS 06/15 21:54 Order name: CBC with Automated Diff EDMS 06/15 21:54 Order name: Comprehensive Metabolic Panel EDMS 06/15 21:54 Order name: Comprehensive Metabolic Panel EDMS 06/15 21:54 Order name: Troponin I EDMS 06/15 21:54 Order name: Troponin I [facility] 06/15 21:54 Order name: Troponin I [facility] 06/15 21:57 Order name: Carotid Artery Bilateral [facility] 06/15 15:21 Order name: EKG; Complete Time: 15:22 cp 06/15 15:21 Order name: Cardiac monitoring; Complete Time: 16:01 cp 06/15 15:21 Order name: EKG - Nurse/Tech; Complete Time: 15:29 cp 06/15 15:21 Order name: IV Saline Lock; Complete Time: 16:01 cp 06/15 15:21 Order name: Labs collected and sent; Complete Time: 16:01 cp 06/15 15:21 Order name: O2 Per Protocol; Complete Time: 16:01 cp 06/15 15:21 Order name: O2 Sat Monitoring; Complete Time: 16:01 cp 06/15 15:23 Order name: Urine Dipstick-Ancillary (obtain specimen); Complete Time: 16:46 cp 06/15 21:54 Order name: CONS Pharmacy Consult [facility] 06/15 21:54 Order name: Regular [facility] EC:40 Rate is 97 beats/min. Rhythm is regular. KS interval is normal. QRS interval is normal. cp QT interval is normal. T waves are Inverted in leads I, aVL. Interpreted by me. Reviewed by me. Administered Medications: 16:29 CANCELLED (Physician Discretion): NS 0.9% 250 ml IV at bolus once cp 16:46 Drug: Tylenol 650 mg Route: PO; mg2 18:02 Follow up: Response: No adverse reaction mg2 16:46 Drug: NS 0.9% 500 ml Route: IV; Rate: bolus; Site: right forearm; mg2 17:26 Follow up: IV Status: Completed infusion; IV Intake: 500ml rv 17:26 Drug: NS 0.9% 1000 ml Route: IV; Rate: 75 ml/hr; Site: right antecubital; rv 23:05 Follow up: Response: No adverse reaction; IV Status: Order to discontinue infusion; IV mg2 Intake: 150ml 17:29 CANCELLED (Physician Discretion): Ibuprofen 600 mg PO once cp 17:32 Drug: Rocephin - (cefTRIAXone) 1 grams Route: IVPB; Infused Over: 30 mins; Site: right mg2 forearm; 23:03 Follow up: Response: No adverse reaction; IV Status: Completed infusion; IV Intake: mg2 2000ml 18:02 Drug: NS 0.9% (30 ml/kg) 30 ml/kg Route: IV; Rate: bolus; Site: right forearm; mg2 23:04 Follow up: Response: No adverse reaction; IV Status: Completed infusion; IV Intake: mg2 1000ml 18:25 Drug: Tylenol-Codeine #3 (300 mg - 30 mg) 1 tabs Route: PO; mg2 23:02 Follow up: Response: No adverse reaction mg2 Disposition: 19:00 Chart complete. cp Disposition: 06/15/19 18:03 Hospitalization ordered by Deandre Cardenas for Inpatient Admission. Preliminary diagnosis are Urinary tract infection, site not specified, Other sepsis, Syncope and collapse, Contusion of other part of head. - Bed requested for Telemetry/MedSurg (Inpatient). - Status is Inpatient Admission. mg2 - Condition is Stable. - Problem is new. - Symptoms have improved. UTI on Admission? Yes Addendum: 06/18/2019 06:48 Co-signature as Attending Physician, Dalton Dewey MD I agree with the assessment and k dr plan of care. Signatures: Dispatcher [employer] [facility]KY Kelly Espinoza RN RN Dalton Dewey MD MD [facility] Kassandra Guerra RN RN ss Robin Mcarthur PA PA cp Murali Alvarenga RN RN mg2 Surinder Blackwell RN RN rv Corrections: (The following items were deleted from the chart) 06/15 16:29 16:28 NS 0.9% 250 ml IV at bolus once ordered. cp cp 17:29 17:28 Ibuprofen 600 mg PO once ordered. cp cp 17:30 16:52 Evangelista ordered. cp mg2 22:15 18:03 Hospitalization Ordered by Deandre Cardenas DO for Inpatient Admission. Preliminary dw diagnosis is Urinary tract infection, site not specified; Other sepsis; Syncope and collapse; Contusion of other part of head. Bed requested for Telemetry/MedSurg (Inpatient). Status is Inpatient Admission. Condition is Stable. Problem is new. Symptoms have improved. UTI on Admission? Yes. cp 23:07 22:15 06/15/2019 18:03 Hospitalization Ordered by Deandre Cardenas DO for Inpatient mg2 Admission. Preliminary diagnosis is Urinary tract infection, site not specified; Other sepsis; Syncope and collapse; Contusion of other part of head. Bed requested for Telemetry/MedSurg (Inpatient). Status is Inpatient Admission. Condition is Stable. Problem is new. Symptoms have improved. UTI on Admission? Yes. dw
[2019-06-15] MEDS ORDERED: CODEINE 30MG/APAP 300MG TAB ONE (18:20)
[2019-06-15] MEDS ORDERED: ONDANSETRON 4 MG/2 ML VIAL IV PRN (21:50)
[2019-06-15] MEDS ORDERED: ACETAMINOPHEN 500 MG TAB PO PRN (21:50)
[2019-06-15] MEDS ORDERED: MORPHINE 2 MG/ML SYR IV PRN (21:50)
[2019-06-15] MEDS ORDERED: NA CHLORIDE 0.9% 1,000 ML IV SCH (22:00)
[2019-06-16 00:10] VITALS: BMI 24.4
[2019-06-16 06:15] LABS: Absolute Lymphocytes (CBC) 1.6 K/uL (0.7-4.9); Basophils % 0.4 % (0-1.3); Hematocrit 29.4 % (36.0-45.0); Lymphocytes % 27.1 % (15.3-44.8); MPV 8.5 fL (7.6-11.3); RBC Red Blood Cell Count 3.08 M/uL (3.86-4.86)
[2019-06-16 07:00] LABS: Albumin 2.7 g/dL (3.4-5.0); Bilirubin Total 0.2 mg/dL (0.2-1.0); Potassium 4.2 mmol/L (3.5-5.1); Protein, Total 5.4 g/dL (6.4-8.2)
--- NOTE | 2019-06-16 07:24 | P.HP ---
Certification for Inpatient Patient admitted to: Observation With expected LOS: <2 Midnights Patient will require the following post-hospital care: None Practitioner: I am a practitioner with admitting privileges, knowledge of patient current condition, hospital course, and medical plan of care. Services: Services provided to patient in accordance with Admission requirements found in Title 42 Section 412.3 of the Code of Federal Regulations Patient History Date of Service: 06/15/19 Reason for admission: Status post fall/urinary tract infection/facial trauma History of Present Illness: Patient is an 79-year-old female who comes into the hospital after falling and suffering a head injury. This was external and not any intracranial injury. Patient was admitted to the hospital for further evaluation. Patient is complaining of a headache. Will try to give her some relief with some Tylenol or hydrocodone. Will do neuro checks and monitor her on telemetry to make sure she did not have an arrhythmia. If her workup is negative she should be able to go home in the morning with outpatient follow with Cardiology. Allergies Sulfa (Sulfonamide Antibiotics) Allergy (Verified 06/16/19 01:04) Itching Home Medications: Atorvastatin Calcium [Lipitor] 40 mg PO DAILY 12/13/17 allopurinoL [Zyloprim*] 100 mg PO DAILY 12/13/17 Famotidine 20 mg PO DAILY 05/12/18 Amlodipine [Norvasc*] 1 tab PO DAILY 10/22/18 Docusate Sodium 1 tab PO PRN PRN 10/22/18 Levothyroxine [Synthroid*] 1 tab PO DAILY 10/22/18 Memantine HCl [Namenda] 10 mg PO BID 10/22/18 Mirtazapine [Remeron*] 1 tab PO BEDTIME 10/22/18 Multivit with Iron,Minerals [Spectravite Senior] 1 each PO DAILY #90 tablet lisinopriL [Prinivil*] 20 mg PO DAILY #30 tab 10/25/18 - Past Medical/Surgical History Has patient received pneumonia vaccine in the past: No Diabetic: No -: Hypothyroidism -: Hypothyroidism -: Hypertension -: Gout -: hyperlipidemia -: Right knee replacement -: lap cholecystectomy -: Hysterectomy Psychosocial/ Personal History: Patient currently lives by herself. Her is in an assisted living facility patient receives home health and physical therapy - Family History Mother Medical History: Cancer Notes: breast cancer. Father Medical History: Other (see notes) Notes: arthritis - Social History Smoking Status: Never smoker Alcohol use: No CD- Drugs: No Caffeine use: No Place of Residence: Home Review of Systems 10-point ROS is otherwise unremarkable Physical Examination - Vital Signs Temperature: 97.1 F Blood Pressure: 140/65 Pulse: 83 Respirations: 16 Pulse Ox (%): 99 - Physical Exam General: Alert, In no apparent distress, Oriented x3 HEENT: PERRLA, Mucous membr. moist/pink, Other (Some bruising to the scalp), EOMI, Sclerae nonicteric Neck: Supple, 2+ carotid pulse no bruit, No LAD, Without JVD or thyroid abnormality Respiratory: Clear to auscultation bilaterally, Normal air movement Cardiovascular: Regular rate/rhythm, Normal S1 S2 Gastrointestinal: Normal bowel sounds, Soft and benign, Non-distended, No tenderness Musculoskeletal: No clubbing, No swelling, No tenderness Integumentary: No rashes Neurological: Normal gait, Normal speech, Normal strength at 5/5 x4 extr, Normal tone, Sensation intact, Cranial nerves 3-12 intact, Normal affect Lymphatics: No axilla or inguinal lymphadenopathy - Studies Laboratory Data (last 24 hrs) 06/15/19 15:50: PT 10.9, INR 0.92 06/15/19 15:50: WBC 12.6 H D, Hgb 12.8, Hct 38.4, Plt Count 166 D 06/15/19 15:50: Sodium 143, Potassium 4.3, BUN 26 H, Creatinine 1.61 H, Glucose 148 H, Magnesium 2.2, Total Bilirubin 0.3, AST 29, ALT 32, Alkaline Phosphatase 104 Assessment & Plan - Problems (Diagnosis) (1) Status post fall Current Visit: Yes Status: Acute (2) LOC (loss of consciousness) Current Visit: Yes Status: Acute (3) UTI (urinary tract infection) Current Visit: Yes Status: Acute (4) Meningioma Current Visit: No Status: Acute (5) Diverticulosis Current Visit: No Status: Chronic Qualifiers: (6) Gout Onset Date: 05/12/18 Current Visit: No Status: Chronic (7) Hypertension Onset Date: 12/15/17 Current Visit: No Status: Chronic Qualifiers: (8) Hypothyroidism Onset Date: 12/15/17 Current Visit: No Status: Chronic Qualifiers: - Plan Plan: 1. Multiple imaging studies are negative. Patient will get a carotid Doppler as well. If this is negative will continue to monitor on telemetry. Will need to make sure patient is not having an arrhythmia. Will continue on antibiotic therapy and IV hydration. Patient hopefully will be able to go home tomorrow afternoon if her workup remains unremarkable. She is having some pain where she fell and will need to continue with pain control going forward. Discharge Plan: Home Plan to discharge in: 48 Hours - Advance Directives Does patient have a Living Will: Yes Does patient have a Durable POA for Healthcare: Yes - Code Status/Comfort Care Code Status Assessed: Yes Code Status: Full Code Critical Care: No Time Spent Managing PTS Care (In Minutes): 45
[2019-06-16] MEDS ORDERED: ACETAMINOPHEN 500 MG TAB PO ONE (07:40)
[2019-06-16] MEDS ORDERED: D5W 1,000 ML IV SCH (08:00)
[2019-06-16 08:05] VITALS: O2SAT 97
--- NOTE | 2019-06-16 08:14 | RAD REPORT ---
EXAM DESCRIPTION: US - CP - 06/15/2019 10:55 pm CLINICAL HISTORY: syncope COMPARISON: Head C Spine Mpr Wo Con dated 06/15/2019 TECHNIQUE: Real-time sonographic evaluation of bilateral carotid and vertebral systems was performed . Palacio scale and Doppler interrogation were performed with waveform tracing bilaterally. FINDINGS: Normal high resistance waveforms are noted in both external carotid arteries. The common c arotid arteries and internal carotid arteries show normal low resistance waveforms. Visual inspection shows no significant plaquing changes. There is no dissection or other significant luminal narrowing. The left ICA/ CCA ratio 1.57 is normal range. The right ICA/CCA ratio of 2.18 is e levated due to an increased distal ICA velocity. The elevated velocity is believed be more technical in nature rather than an indication of significant disease. Antegrade flow seen in both vertebral arteries. Velocity values and ratios were recorded and are retained in the patient's imaging records. IMPRESSION: No significant atherosclerotic changes noted. Hemodynamically significant stenosis is not identified.
[2019-06-16] MEDS ORDERED: CEFTRIAXONE/SWI 1gm 1 GM/10 ML SYR IV SCH (09:00)
[2019-06-16 12:52] VITALS: BP 139/65; TEMP 99
[2019-06-16] MEDS ORDERED: PNEUMOCOCCAL VACCINE 0.5 ML IMVAC ONE (13:00)
--- NOTE | 2019-06-17 01:14 | DS ---
Date of Discharge: 06/16/2019 Discharge Diagnoses: 1.Urinary tract infection. 2.Fall. 3.Facial trauma. 4.Hypertension. 5.Vasovagal reaction. 6.History of meningioma. 7.History of gout. 8.Hypothyroidism. Consult: None. Procedure: Carotid Doppler done on the day of admission showed no significant atherosclerotic change s. CT head and cervical spine were negative for any trauma or fractures. No intracranial abnormalit y seen. History Of Present Illness: Please refer to Dr. Basurto's admission note. Hospital Course: Initially, the patient presented from the home with a history of a fall in the bath room. Patient had mild facial trauma. CT of the head, spine did not show any fractures or bleed. C arotid Doppler was negative. Patient was observed overnight. She did well on telemetry. She ____ followup with Cardiology as outpatient. Patient would like to go home. Her labs showed elevate d white blood cells upon admission. She was started on IV antibiotic with ceftriaxone and her white blood cells went down to 5.8. She slightly had mild hypernatremia this morning. She advised to cut down on salt. She will be discharged today in stable condition to follow up with the primary care ph ysician. She already was prescribed Macrobid as outpatient. She will continue Macrobid, antibiotic for total of 1 week to cover her UTI. Her urine culture was still pending. On discharge, her labs s howed a slight elevation in LFTs. I will suggest she will follow up with primary care physician this week as outpatient and repeat labs to make sure this is back to normal. Discharge Condition: Stable. Discharged Diet: Cardiac. Discharge Followup: With primary physician this week with a CBC, CMP and follow up on the urine cult ure results. Discharge Activity: As tolerated with fall precaution. Discharge Physical Exam: Vital signs: Discharge vital signs, blood pressure is 137/65, respiratory rate 18, pulse 96, temp 98.2. General: She is alert and oriented x3. Does not look in any distress. HEENT: Atraumatic, normocephalic. PERRLA. Oral mucosa is moist. There is a bruising on the left u pper face, mildly tender to palpation. Chest: Clear to auscultation. Good air entry. Heart: Regular rate and rhythm. S1, S2 normal. No gallop or murmur. Abdomen: Soft, nontender. No masses. No hepatosplenomegaly. Positive bowel sounds present. Extremities: No clubbing, no cyanosis, no edema. No calf tenderness. Neurologic: Grossly intact. Cranial exam 2-12 intact. Normal sensation. Normal reflexes. Normal muscle strength. Discharge Medications: Macrobid 100 mg twice a day for 7 days physician, allopurinol 100 mg daily, Norvasc 10 mg daily, atorvastatin mg daily, Colace 100 as needed twice a day, fa motidine 20 mg daily, Synthroid 50 mcg daily, Namenda 5 mg twice a day, multivitamin orall y once a day. WILLAM/NERI Voice ID: [id number] Report ID: [id number]
--- NOTE | 2019-06-19 16:46 | EKG ---
Test Date: 2018-06-15 Test Time: 15:27:12 Binding Bench Worker: RV MEASUREMENT RESULTS: Intervals: Rate: 97 DE: 166 QRSD: 92 QT: 366 QTc: 464 [place]: P: 71 DE: 166 QRS: -56 T: 95 INTERPRETIVE STATEMENTS: Sinus rhythm with occasional premature ventricular complexes Left axis deviation Incomplete right bundle branch block Left ventricular hypertrophy with repolarization abnormality Cannot rule out Septal infarct, age undetermined Abnormal ECG Cardioserver Error - Incorrect date on EKG This EKG was performed on 06-15-2019 Compared to ECG 05/11/2018 13:23:15 Ventricular premature complex(es) now present Incomplete right bundle-branch block now present Left ventricular hypertrophy now present Early repolarization now present Myocardial infarct finding still present Electronically Signed On 06-19-19 16:41:50 INTERNATIONAL RECRUITER by Perez Wolfe
== END 2019-06-16 13:04 | disposition home or self-care (01) ==
LOC: ER 14:57 → 4TH 22:51
PROVIDERS: ADMIT Internal Medicine; ATTEND Hospitalist
DX: N39.0 Urinary tract infection, site not specified (principal); S00.03XA Contusion of scalp, initial encounter; W18.11XA Fall from or off toilet without subsequent striking against object, initial encounter; Y92.002 Bathroom of unspecified non-institutional (private) residence as the place of occurrence of the external cause; E03.9 Hypothyroidism, unspecified; I10 Essential (primary) hypertension; M10.9 Gout, unspecified; E78.5 Hyperlipidemia, unspecified; Z96.651 Presence of right artificial knee joint; Z88.2 Allergy status to sulfonamides; R55 Syncope and collapse
CPT/HCPCS: 96365; 96361; 93005; 87040 ×2; 87088; 85025 ×2; 87086; 80048; 36415; 83735; 85610; 80076; 83605 ×2; 84484 ×2; 80053; 84145; 83880; 70450; 72125; 93880; 99285; 96366; J0696; J7030 ×3; G0378 ×2; 81003; 81015

== ENCOUNTER 2019-07-23 13:59 | Inpatient (IN) | payer OTHER ==
[2019-07-23 16:23] LABS: Absolute Lymphocytes (CBC) 1.7 K/uL (0.7-4.9); Basophils % 0.3 % (0-1.3); Hematocrit 38.9 % (36.0-45.0); Lymphocytes % 13.6 % (15.3-44.8); MPV 8.9 fL (7.6-11.3); RBC Red Blood Cell Count 4.03 M/uL (3.86-4.86)
[2019-07-23 16:30] LABS: Protime INR 0.99
[2019-07-23 16:44] LABS: ALT/SGPT 24 U/L (12-78); AST/SGOT 24 U/L (15-37); Albumin 3.4 g/dL (3.4-5.0); Alkaline Phosphatase 111 U/L (45-117); BUN Blood Urea Nitrogen 31 mg/dL (7-18); Bicarbonate 26 mmol/L (21-32); Bilirubin Direct 0.2 mg/dL (0-0.2); Bilirubin Total 0.4 mg/dL (0.2-1.0); Glucose Level 96 mg/dL (74-106); Potassium 3.7 mmol/L (3.5-5.1); Protein, Total 7.4 g/dL (6.4-8.2); Sodium Level 142 mmol/L (136-145)
[2019-07-23 16:45] LABS: Lipase 143 U/L (73-393); Magnesium 2.3 mg/dL (1.8-2.4); NT PRO-BNP 33 pg/mL (<450); Troponin (Emerg Dept Use Only) < 0.02 ng/mL (0.0-0.045)
--- NOTE | 2019-07-23 17:20 | RAD REPORT ---
EXAM DESCRIPTION: RAD - Chest Single View - 07/23/2019 4:48 pm CLINICAL HISTORY: COUGH COMPARISON: Chest Single View dated 06/02/2019; Chest Single View dated 10/22/2018 TECHNIQUE: AP portable chest image was obtained 07/23/2019 4:48 pm . FINDINGS: Lungs are clear. Heart and vasculature are normal. No measurable pleural effusion and no p neumothorax. No acute bony abnormality seen. No acute aortic findings suspected. IMPRESSION: No acute cardiopulmonary process. No significant change from comparison.
--- NOTE | 2019-07-23 17:35 | RAD REPORT ---
EXAM DESCRIPTION: CT - Chest Abd Pelvis Wo Con - 07/23/2019 5:12 pm CLINICAL HISTORY: ABDOMINAL DISTENTION5 ABDOMINAL DISTENTIONchest pain, abdominal pain, abdominal distention COMPARISON: No comparisons TECHNIQUE: Axial 5 millimeter thick images of the chest, abdomen and pelvis were obtained without IV contrast. Oral contrast was administered. All CT scans are performed using dose optimization technique as appropriate and may include automated exposure control or mA/KV adjustment according to patient size. FINDINGS: The lungs are clear of mass and infiltrate. No pneumothorax or pleural effusion. No ches t wall mass or abnormal axillary lymphadenopathy seen. Mediastinal and hilar regions show no mass or lymphadenopathy. No significant cardiac finding. The liver, spleen and pancreas show no significant findings for non contrast imaging. Cholecystectom y clips are present. No biliary tree dilatation. No hydronephrosis or suspicious renal mass. Isodense masses and pyelonephritis cannot be excluded on non contrast imaging. No adrenal abnormalities. No urinary bladder abnormalities. Uterus is absent. Ovaries are absent or atrophic. No dilated bowel loops or focal ball bowel wall thickening. Diverticulosis present without diverticul itis. No active GI process. No free air, free fluid or inflammatory stranding. No hernia, mass or bu lky lymphadenopathy. No acute vascular finding on noncontrast imaging. No acute compression fracture changes. Patient has degenerative change throughout the thoracic and iliana mbar spine. No pathologic component seen. Spinal stenosis is present at L3-4 and borderline stenosis at L4-5. Central canal detail is inherently limited. IMPRESSION: CT chest imaging shows no acute or emergent finding. CT abdomen and pelvis imaging shows no acute or emergent finding. Patient has significant lumbar spine degenerative change with spinal stenosis at L3-4 and borderline spinal stenosis at L4-5. CT abdomen and pelvis imaging shows no significant or suspicious finding.
--- NOTE | 2019-07-23 17:40 | RAD REPORT ---
EXAM DESCRIPTION: CT - [id number] - 07/23/2019 5:11 pm CLINICAL HISTORY: Syncope, fall, head and neck injury COMPARISON: CT head and cervical June 15 TECHNIQUE: Axial 5 mm thick images of the head were obtained. Axial 2 mm thick images of the cervic al spine were obtained with sagittal and coronal reconstruction images generated and reviewed. All CT scans are performed using dose optimization technique as appropriate and may include automated exposure control or mA/KV adjustment according to patient size. FINDINGS: No intracranial hemorrhage, mass, edema or acute intracranial finding. No suspicion for acute infarct ion. Atrophy and chronic ischemic changes match comparison. Ventricles remain in proportion to volume loss Mastoid air cells and paranasal sinuses are clear. No globe or orbit abnormality seen. Cervical bodies are normal in height. No fracture changes. No pathologic bone process. Slight anterio r subluxation C3 on C4 and C4 on C5 are stable. C5-6 and C6-7 significant disc space narrowing and en dplate spurring changes match comparison. No other significant disc space narrowing. Disc bulge and e ndplate spurring changes at C6-7 and C5-6 result in borderline spinal stenosis. There is significant left foraminal stenosis at C5-6. Prominent facet degenerative changes are seen throughout the cervica l spine. Central canal detail is inherently limited. No paraspinal mass or hematoma. IMPRESSION: Negative CT head examination for acute or significant finding. Atrophy and chronic ischemic change match comparison. Advanced cervical spine degenerative change similar to comparison. No acute finding.
[2019-07-23] MEDS ORDERED: ONDANSETRON 4 MG/2 ML VIAL IV PRN (19:25)
[2019-07-23] MEDS ORDERED: ALPRAZOLAM 0.25 MG TABLET PO PRN (19:25)
[2019-07-23] MEDS ORDERED: NA CHLORIDE 0.9% 1,000 ML IV SCH (20:00)
[2019-07-23 20:02] LABS: Urine Blood NEGATIVE (NEG); Urine Glucose NEGATIVE (NEG); Urine Protein 1+ (NEG); Urine Specific Gravity 1.025 (1.005-1.030); Urine pH 5.5 (5.0-7.0)
--- NOTE | 2019-07-23 20:27 | EDPHYS ---
Physician Documentation [facility] Name: Hadley Landaverde Age: 79 yrs Sex: Female : 1940 Arrival Date: 07/23/2019 Time: 14:03 Bed 7 Private MD: ED Physician Robin Salcido HPI: 07/23 16:55 This 79 yrs old Female presents to ER via Wheelchair with complaints of patria Abdominal Pain, Dizziness, Fall Injury. 16:55 The patient presents with generalized weakness. Onset: The symptoms/episode patria began/occurred this morning. Context: occurred at home. Historical: - Allergies: 14:38 Sulfa (Sulfonamide Antibiotics); ca1 - Home Meds: 14:38 levothyroxine 50 mcg tab 1 tab once daily [Active]; atorvastatin 40 mg Oral tab 1 tab ca1 once daily [Active]; mirtazapine 15 mg Oral TbDL 1 tab once daily [Active]; memantine 5 mg Oral tab 1 tabs once daily [Active]; docusate sodium 100 mg Oral cap 1 cap once daily [Active]; donepezil 5 mg oral TbDL 1 tab once daily [Active]; nitrofurantoin macrocrystal 100 mg Oral cap 1 cap once daily [Active]; Levofloxacin Oral [Active]; - PMHx: 14:38 allergies; Dementia; Diabetes - NIDDM; GERD; Gout; Hypertension; Hypothyroidism; ca1 - PSHx: 14:38 None; ca1 - Immunization history:: Adult Immunizations up to date, Pneumococcal vaccine is up to date, Flu vaccine is not up to date. - Coronavirus screen:: The patient has NOT traveled to [place], [place], or [place] in the past 14 days. The patient has NOT had contact with known/suspected case of Coronavirus?. - Social history:: Smoking status: Patient denies any tobacco usage or history of. - Ebola Screening: : Patient negative for fever greater than or equal to 101.5 degrees Fahrenheit, and additional compatible Ebola Virus Disease symptoms Patient denies exposure to infectious person Patient denies travel to an Ebola-affected area in the 21 days before illness onset No symptoms or risks identified at this time. ROS: 16:55 Constitutional: Negative for fever, chills, and weight loss, Eyes: Negative for injury, patria pain, redness, and discharge, ENT: Negative for injury, pain, and discharge, Neck: Negative for injury, pain, and swelling, Cardiovascular: Negative for chest pain, palpitations, and edema, Respiratory: Negative for shortness of breath, cough, wheezing, and pleuritic chest pain, Back: Negative for injury and pain, : Negative for injury, bleeding, discharge, and swelling, MS/Extremity: Negative for injury and deformity, Skin: Negative for injury, rash, and discoloration, Psych: Negative for depression, anxiety, suicide ideation, homicidal ideation, and hallucinations, Allergy/Immunology: Negative for hives, rash, and allergies, Endocrine: Negative for neck swelling, polydipsia, polyuria, polyphagia, and marked weight changes, Hematologic/Lymphatic: Negative for swollen nodes, abnormal bleeding, and unusual bruising. 16:55 Abdomen/GI: Positive for abdominal pain, of the right upper quadrant, left upper quadrant, right lower quadrant and left lower quadrant. Exam: 16:55 Constitutional: This is a well developed, well nourished patient who is awake, alert, patria and in no acute distress. Head/Face: Normocephalic, atraumatic. Eyes: Pupils equal round and reactive to light, extra-ocular motions intact. Lids and lashes normal. Conjunctiva and sclera are non-icteric and not injected. Cornea within normal limits. Periorbital areas with no swelling, redness, or edema. ENT: Nares patent. No nasal discharge, no septal abnormalities noted. Tympanic membranes are normal and external auditory canals are clear. Oropharynx with no redness, swelling, or masses, exudates, or evidence of obstruction, uvula midline. Mucous membranes moist. Neck: Trachea midline, no thyromegaly or masses palpated, and no cervical lymphadenopathy. Supple, full range of motion without nuchal rigidity, or vertebral point tenderness. No Meningismus. Chest/axilla: Normal chest wall appearance and motion. Nontender with no deformity. No lesions are appreciated. Cardiovascular: Regular rate and rhythm with a normal S1 and S2. No gallops, murmurs, or rubs. Normal PMI, no JVD. No pulse deficits. Respiratory: Lungs have equal breath sounds bilaterally, clear to auscultation and percussion. No rales, rhonchi or wheezes noted. No increased work of breathing, no retractions or nasal flaring. Abdomen/GI: Soft, non-tender, with normal bowel sounds. No distension or tympany. No guarding or rebound. No evidence of tenderness throughout. Back: No spinal tenderness. No costovertebral tenderness. Full range of motion. Female : Normal external genitalia. Skin: Warm, dry with normal turgor. Normal color with no rashes, no lesions, and no evidence of cellulitis. MS/ Extremity: Pulses equal, no cyanosis. Neurovascular intact. Full, normal range of motion. Neuro: Awake and alert, GCS 15, oriented to person, place, time, and situation. Cranial nerves II-XII grossly intact. Motor strength 5/5 in all extremities. Sensory grossly intact. Cerebellar exam normal. Normal gait. Psych: Awake, alert, with orientation to person, place and time. Behavior, mood, and affect are within normal limits. Vital Signs: 14:38 BP 109 / 62; Pulse 78; Resp 17 S; Temp 98.5(O); Pulse Ox 100% on R/A; Weight 63.96 kg ca1 (R); Height 5 ft. 10 in. (177.80 cm) (R); 15:30 BP 123 / 64; Pulse 79; Resp 16 S; Pulse Ox 98% on R/A; jl7 16:15 BP 128 / 68; Pulse 78; Resp 16 S; Pulse Ox 100% on R/A; jl7 16:54 BP 118 / 60; Pulse 83; Resp 16 S; Pulse Ox 100% on R/A; jl7 18:53 BP 133 / 64; Pulse 80; Resp 19 S; Pulse Ox 96% on R/A; jl7 20:08 BP 135 / 65; Pulse 84; Resp 18 S; Pulse Ox 97% on R/A; jd3 14:38 Body Mass Index 20.23 (63.96 kg, 177.80 cm) ca1 MDM: 15:26 Patient medically screened. [facility] 16:56 Data reviewed: vital signs, nurses notes, lab test result(s), EKG, radiologic studies, [facility] CT scan, plain films. 07/23 15:31 Order name: Basic Metabolic Panel [facility] 07/23 15:31 Order name: CBC with Diff [facility] 07/23 15:31 Order name: LFT's [facility] 07/23 15:31 Order name: Magnesium [facility] 07/23 15:31 Order name: NT PRO-BNP [facility] 07/23 15:31 Order name: PT-INR [facility] 07/23 15:31 Order name: Troponin (emerg Dept Use Only) [facility] 07/23 15:31 Order name: Lipase [facility] 07/23 15:31 Order name: Urine Culture [facility] 07/23 16:31 Order name: CBC with Automated Diff; Complete Time: 18:16 [facility] 07/23 16:47 Order name: Urine Dipstick--Ancillary (enter results) 07/23 18:54 Order name: Protime (+INR) [facility] 07/23 18:58 Order name: Basic Metabolic Panel [facility] 07/23 18:58 Order name: Liver (Hepatic) Function [facility] 07/23 15:31 Order name: XRAY Chest (1 view) [facility] 07/23 15:31 Order name: EKG; Complete Time: 16:05 [facility] 07/23 15:31 Order name: Cardiac monitoring; Complete Time: 16:47 [facility] 07/23 15:31 Order name: EKG - Nurse/Tech; Complete Time: 16:47 [facility] 07/23 15:31 Order name: IV Saline Lock; Complete Time: 16:47 [facility] 07/23 15:33 Order name: CT Chest, Abdomen, Pelvis - W/Contrast: iv only [facility] 07/23 15:56 Order name: CT Head C Spine [facility] 07/23 18:58 Order name: Troponin (Emerg Dept Use Only) [facility] 07/23 18:58 Order name: NT PRO-BNP [facility] 07/23 18:59 Order name: Magnesium [facility] 07/23 18:59 Order name: Lipase [facility] 07/23 19:30 Order name: RAD [facility] 07/23 19:31 Order name: CT [facility] 07/23 19:31 Order name: CT [facility] 07/23 20:05 Order name: Urine Dipstick-Ancillary [facility] 07/23 15:31 Order name: Labs collected and sent; Complete Time: 16:48 [facility] 07/23 15:31 Order name: O2 Per Protocol; Complete Time: 16:48 [facility] 07/23 15:31 Order name: O2 Sat Monitoring; Complete Time: 16:48 [facility] 07/23 15:33 Order name: Urine Dipstick-Ancillary (obtain specimen); Complete Time: 16:47 [facility] Administered Medications: 18:56 Not Given (Other Intervention Used): NS 0.9% 1000 ml IV at 125 ml/hr continuous jl7 Disposition: 07/23/19 19:13 Hospitalization ordered by Avril Basurto for Inpatient Admission. Preliminary diagnosis are Weakness, Dizziness and giddiness, Repeated falls, Syncope and collapse - near, Type 2 diabetes mellitus. - Bed requested for Telemetry/MedSurg (Inpatient). - Status is Inpatient Admission. jd3 - Condition is Fair. - Problem is new. - Symptoms have improved. Signatures: Dispatcher [employer] EDHI Robin Salcido MD MD cha Chretien, Felicia RN RN fc Fermín Abel RN RN jd3 Ladarius, Mily RN BRAYAN [facility] Benjie Alicea RN jl7 Corrections: (The following items were deleted from the chart) 19:12 18:52 07/23/2019 18:52 Discharged to Home. Impression: Abdominal tenderness; Dizziness patria and giddiness. Condition is Stable. Forms are Medication Reconciliation Form, Thank You Letter, Antibiotic Education, Prescription Opioid Use. Follow up: Private Physician; When: 2 - 3 days; Reason: Recheck today's complaints, Continuance of care, Re-evaluation by your physician. Problem is new. Symptoms have improved. [facility] 20:18 19:13 Hospitalization Ordered by Avril Basurto MD for Inpatient Admission. Preliminary diagnosis is Weakness; Dizziness and giddiness; Repeated falls; Syncope and collapse - near; Type 2 diabetes mellitus. Bed requested for Telemetry/MedSurg (Inpatient). Status is Inpatient Admission. Condition is Fair. Problem is new. Symptoms have improved. [facility] 20:51 20:18 07/23/2019 19:13 Hospitalization Ordered by Avril Basurto MD for Inpatient jd3 Admission. Preliminary diagnosis is Weakness; Dizziness and giddiness; Repeated falls; Syncope and collapse - near; Type 2 diabetes mellitus. Bed requested for Telemetry/MedSurg (Inpatient). Status is Inpatient Admission. Condition is Fair. Problem is new. Symptoms have improved. fc
--- NOTE | 2019-07-23 20:27 | ER ---
Nurse's Notes [facility] Name: Hadley Landaverde Age: 79 yrs Sex: Female : 1940 Arrival Date: 07/23/2019 Time: 14:03 Bed 7 Private MD: Diagnosis: Weakness;Dizziness and giddiness;Repeated falls;Syncope and collapse-near;Type 2 diabetes mellitus Presentation: 07/23 14:32 Presenting complaint: Patient states: I feel like I was falling today so I lay myself ca1 on the floor and I couldn't get up. I have been feeling really bad in the last 2-3 days, but feeling sick in the last few weeks. Denies fever, cough, congestion, N/V/D. Transition of care: patient was not received from another setting of care. Onset of symptoms was July 23, 2019. Risk Assessment: Do you want to hurt yourself or someone else? Patient reports no desire to harm self or others. Initial Sepsis Screen: Does the patient meet any 2 criteria? No. Patient's initial sepsis screen is negative. Does the patient have a suspected source of infection? No. Patient's initial sepsis screen is negative. Care prior to arrival: None. 14:32 Method Of Arrival: Wheelchair ca1 14:32 Acuity: RACHEL 3 ca1 Historical: - Allergies: 14:38 Sulfa (Sulfonamide Antibiotics); ca1 - Home Meds: 14:38 levothyroxine 50 mcg tab 1 tab once daily [Active]; atorvastatin 40 mg Oral tab 1 tab ca1 once daily [Active]; mirtazapine 15 mg Oral TbDL 1 tab once daily [Active]; memantine 5 mg Oral tab 1 tabs once daily [Active]; docusate sodium 100 mg Oral cap 1 cap once daily [Active]; donepezil 5 mg oral TbDL 1 tab once daily [Active]; nitrofurantoin macrocrystal 100 mg Oral cap 1 cap once daily [Active]; Levofloxacin Oral [Active]; - PMHx: 14:38 allergies; Dementia; Diabetes - NIDDM; GERD; Gout; Hypertension; Hypothyroidism; ca1 - PSHx: 14:38 None; ca1 - Immunization history:: Adult Immunizations up to date, Pneumococcal vaccine is up to date, Flu vaccine is not up to date. - Coronavirus screen:: The patient has NOT traveled to [place], [place], or [place] in the past 14 days. The patient has NOT had contact with known/suspected case of Coronavirus?. - Social history:: Smoking status: Patient denies any tobacco usage or history of. - Ebola Screening: : Patient negative for fever greater than or equal to 101.5 degrees Fahrenheit, and additional compatible Ebola Virus Disease symptoms Patient denies exposure to infectious person Patient denies travel to an Ebola-affected area in the 21 days before illness onset No symptoms or risks identified at this time. Screenin:30 Abuse screen: Denies threats or abuse. Denies injuries from another. Nutritional jl7 screening: No deficits noted. Tuberculosis screening: No symptoms or risk factors identified. Fall Risk Fall in past 12 months (25 points). No secondary diagnosis (0 pts). IV access (20 points). Ambulatory Aid- None/Bed Rest/Nurse Assist (0 pts). Gait- Weak (10 pts.). Mental Status- Oriented to own ability (0 pts). Total Alvarez Fall Scale indicates High Risk Score (45 or more points). Fall prevention measures have been instituted. Side Rails Up X 2 Placed Close to Nursing Station Frequent Obs/Assessments Occuring Family Present and informed to notify staff if the need to leave the bedside As available patient and family educated on Fall Prevention Program and Strategies. Assessment: 15:30 General: Appears in no apparent distress. uncomfortable, Behavior is calm, cooperative, jl7 appropriate for age. Pain: Complains of pain in abdomen diffusely. Neuro: Level of Consciousness is awake, alert, obeys commands. Cardiovascular: Patient's skin is warm and dry. Respiratory: Airway is patent Respiratory effort is even, unlabored, Respiratory pattern is regular, symmetrical. GI: Abdomen is non-distended, Bowel sounds present X 4 quads. Abd is soft X 4 quads. : No signs and/or symptoms were reported regarding the genitourinary system. EENT: No signs and/or symptoms were reported regarding the EENT system. Derm: Skin is pink, warm \T\ dry. Musculoskeletal: No signs and/or symptoms reported regarding the musculoskeletal system. 16:30 Reassessment: Patient appears in no apparent distress at this time. No changes from jl7 previously documented assessment. Patient and/or family updated on plan of care and expected duration. Pain level reassessed. 17:30 Reassessment: Patient appears in no apparent distress at this time. No changes from jl7 previously documented assessment. Patient and/or family updated on plan of care and expected duration. Pain level reassessed. 18:30 Reassessment: Patient appears in no apparent distress at this time. No changes from jl7 previously documented assessment. Patient and/or family updated on plan of care and expected duration. Pain level reassessed. 19:15 General: Appears in no apparent distress. comfortable, Behavior is calm, cooperative, jd3 appropriate for age. Pain: Denies pain. Neuro: Level of Consciousness is awake, alert, obeys commands, Oriented to person, place, Reports dizziness, generalized weakness.. Cardiovascular: Denies chest pain, Capillary refill < 3 seconds Patient's skin is warm and dry. Respiratory: Airway is patent Respiratory effort is even, unlabored, Respiratory pattern is regular, symmetrical, Denies cough, shortness of breath. GI: Abdomen is non-distended, Abd is soft X 4 quads. : No signs and/or symptoms were reported regarding the genitourinary system. EENT: No signs and/or symptoms were reported regarding the EENT system. Derm: Skin is intact, Skin is dry, Skin is normal, Skin temperature is warm. Musculoskeletal: No signs and/or symptoms reported regarding the musculoskeletal system. 20:08 Reassessment: Patient appears in no apparent distress at this time. No changes from jd3 previously documented assessment. Patient and/or family updated on plan of care and expected duration. Pain level reassessed. awaiting admission orders. Vital Signs: 14:38 BP 109 / 62; Pulse 78; Resp 17 S; Temp 98.5(O); Pulse Ox 100% on R/A; Weight 63.96 kg ca1 (R); Height 5 ft. 10 in. (177.80 cm) (R); 15:30 BP 123 / 64; Pulse 79; Resp 16 S; Pulse Ox 98% on R/A; jl7 16:15 BP 128 / 68; Pulse 78; Resp 16 S; Pulse Ox 100% on R/A; jl7 16:54 BP 118 / 60; Pulse 83; Resp 16 S; Pulse Ox 100% on R/A; jl7 18:53 BP 133 / 64; Pulse 80; Resp 19 S; Pulse Ox 96% on R/A; jl7 20:08 BP 135 / 65; Pulse 84; Resp 18 S; Pulse Ox 97% on R/A; jd3 14:38 Body Mass Index 20.23 (63.96 kg, 177.80 cm) ca1 ED Course: 14:03 Patient arrived in ED. mr 14:34 Triage completed. ca1 14:38 Arm band placed on right wrist. ca1 15:23 Benjie Alicea, BRAYAN is Primary Nurse. jl7 15:26 Robin Salcido MD is Attending Physician. patria 15:30 Patient has correct armband on for positive identification. Placed in gown. Bed in low jl7 position. Call light in reach. Side rails up X2. school lunch monitor on. Pulse ox on. NIBP on. Warm blanket given. Pillow given. 16:15 Initial lab(s) drawn, by me, sent to lab. Inserted saline lock: 22 gauge in right jl7 forearm, using aseptic technique. Blood collected. 16:44 Radiology exam delayed due to lab results not completed at this time. (BUN/Creatinine). nj 16:45 Urine collected: straight cath specimen, clear, Amount Returned: 50mL. Straight cath jl7 inserted, using sterile technique, 16 Fr. Specimen obtained. Returned clear yellow urine. Patient tolerated well. 16:47 Lipase Sent. jl7 16:47 Urine Culture Sent. jl7 16:48 LFT's Sent. jl7 16:48 CBC with Diff Sent. jl7 16:48 Basic Metabolic Panel Sent. jl7 16:48 Troponin (emerg Dept Use Only) Sent. jl7 16:48 PT-INR Sent. jl7 16:48 NT PRO-BNP Sent. jl7 16:48 Magnesium Sent. jl7 19:12 Avril Basurto MD is Hospitalizing Provider. patria 20:45 No provider procedures requiring assistance completed. Patient admitted, IV remains in jd3 place. Administered Medications: 18:56 Not Given (Other Intervention Used): NS 0.9% 1000 ml IV at 125 ml/hr continuous jl7 Outcome: 18:52 Discharge ordered by . patria 19:13 Decision to Hospitalize by Provider. patria 20:45 Admitted to Med/surg accompanied by tech, via stretcher, room 401, with chart, Report jd3 called to Duglas SCHMIDT 20:45 Condition: stable 20:45 Instructed on the need for admit. 20:51 Patient left the ED. jd3 Signatures: Robin Salcido MD MD cha Rivera, Sridevi Lim, Benjie Pineda RN RN jl7 Fermín Abel RN RN jd3 Acob, BRAYAN Minor RN ca1 Corrections: (The following items were deleted from the chart) 16:55 15:15 BP 128 / 68; Pulse 78bpm; Resp 16bpm; Spontaneous; Pulse Ox 100% RA; jl7 jl7 20:09 20:08 Reassessment: Patient appears in no apparent distress at this time. Patient jd3 and/or family updated on plan of care and expected duration. Pain level reassessed. Patient is alert, oriented x 3, equal unlabored respirations, skin warm/dry/pink. awaiting admission orders. jd3 20:17 19:15 Neuro: Level of Consciousness is awake, alert, obeys commands, Oriented to jd3 person, place, time, situation, Reports dizziness, generalized weakness.. jd3 20:17 20:08 Reassessment: Patient appears in no apparent distress at this time. Patient jd3 and/or family updated on plan of care and expected duration. Pain level reassessed. Patient is alert, oriented x 3, equal unlabored respirations, skin warm/dry/pink. awaiting admission orders. jd3
[2019-07-23 21:03] VITALS: BMI 22.4
[2019-07-23] MEDS: HEPARIN 5000 UNIT/ML 1 ML VIAL SQ SCH (21:22)
[2019-07-23 23:16] LABS: Urine Appearance CLEAR; Urine Bilirubin NEGATIVE (NEG); Urine Blood NEGATIVE (NEG); Urine Color YELLOW; Urine Glucose NEGATIVE (NEG); Urine Protein NEGATIVE (NEG); Urine Urobilinogen 0.2 mg/dL (0.2-1.0); Urine pH 5.5 (5.0-7.0)
[2019-07-23 23:19] LABS: Urine Microscopic Reflex NO UMIC
[2019-07-24 04:22] LABS: Absolute Lymphocytes (CBC) 1.5 K/uL (0.7-4.9); Basophils % 0.3 % (0-1.3); Lymphocytes % 17.9 % (15.3-44.8); MPV 9.4 fL (7.6-11.3); RBC Red Blood Cell Count 3.47 M/uL (3.86-4.86)
[2019-07-24 04:33] LABS: Albumin 2.7 g/dL (3.4-5.0); Bilirubin Total 0.2 mg/dL (0.2-1.0); Magnesium 2.1 mg/dL (1.8-2.4); Phosphorus 3.2 mg/dL (2.5-4.9); Protein, Total 5.7 g/dL (6.4-8.2)
--- NOTE | 2019-07-24 08:18 | P.CNS ---
Date of Consult: 07/24/19 Reason for Consult: BERTA Requesting Physician: Davida Ross Chief Complaint: Dizziness History of Present Illness: 79 yo WF CKD presented to the ER with dizziness complicated by a fall. Limited HPI/ ROS due to dementia. 16:55 This 79 yrs old Female presents to ER via Wheelchair with complaints of patria Abdominal Pain, Dizziness, Fall Injury. 16:55 The patient presents with generalized weakness. Onset: The symptoms/ episode patria began/occurred this morning. Context: occurred at home Allergies Sulfa (Sulfonamide Antibiotics) Allergy (Verified 06/16/19 01:04) Itching Home medications list reviewed: Yes Home Medications: Atorvastatin Calcium [Lipitor] 1 tab PO DAILY 07/24/19 Docusate Sodium 1 tab PO DAILY 07/24/19 Donepezil [Aricept*] 1 tab PO BEDTIME 07/24/19 Levofloxacin [Levaquin] 1 tab PO DAILY 07/24/19 Levothyroxine [Synthroid*] 1 tab PO DAILY 07/24/19 Memantine HCl [Namenda*] 1 tab PO BID 07/24/19 Mirtazapine [Remeron*] 1 tab PO BEDTIME 07/24/19 Multivitamins with Iron 1 tab PO DAILY 07/24/19 Mupirocin Oint [Bactroban 2% Ointment*] 1 javier TOP BID 07/24/19 Nitrofurantoin Monohyd/M-Cryst [Nitrofurantoin Kerr-Mcr 100 mg] 1 tab PO DAILY 07/24/19 - Past Medical/Surgical History Diabetic: No -: Hypothyroidism -: Hypothyroidism -: Hypertension -: Gout -: hyperlipidemia -: Right knee replacement -: lap cholecystectomy -: Hysterectomy Psychosocial/ Personal History: Patient currently lives by herself. Her is in an assisted living facility patient receives home health and physical therapy - Family History Mother Medical History: Cancer Notes: breast cancer Father Medical History: Other (see notes) Notes: arthritis - Social History Smoking Status: Unknown if ever smoked Alcohol use: No CD- Drugs: No Caffeine use: No Place of Residence: Home Review of Systems 10-point ROS is otherwise unremarkable General: Weakness, Malaise Neurological: Confusion Physical Examination Temp Pulse Resp BP Pulse Ox 97.4 F 70 16 113/56 L 100 07/24/19 04:00 07/24/19 04:00 07/24/19 04:00 07/24/19 04:00 07/24/19 04:00 General: In no apparent distress, Cooperative HEENT: Atraumatic Neck: Supple Respiratory: Clear to auscultation bilaterally Cardiovascular: No edema, Regular rate/rhythm Gastrointestinal: Soft and benign, Non-distended, No guarding Musculoskeletal: No clubbing, No contractures Integumentary: No rashes, No cyanosis Neurological: Normal speech Laboratory Data (last 24 hrs) 07/23/19 16:10: PT 11.7, INR 0.99 07/23/19 16:10: WBC 12.2 H, Hgb 13.0, Hct 38.9, Plt Count 155 07/23/19 16:10: Sodium 142, Potassium 3.7, BUN 31 H, Creatinine 2.25 H, Glucose 96, Magnesium 2.3, Total Bilirubin 0.4, AST 24, ALT 24, Alkaline Phosphatase 111 , Lipase 143 Imagings Data: EXAM DESCRIPTION: RAD - Chest Single View - 07/23/2019 4:48 pm CLINICAL HISTORY: COUGH COMPARISON: Chest Single View dated 06/02/2019; Chest Single View dated 2018 TECHNIQUE: AP portable chest image was obtained 07/23/2019 4:48 pm . FINDINGS: Lungs are clear. Heart and vasculature are normal. No measurable pleural effusion and no pneumothorax. No acute bony abnormality seen. No acute aortic findings suspected. IMPRESSION: No acute cardiopulmonary process. No significant change from comparison. EXAM DESCRIPTION: CT - Chest Abd Pelvis Wo Con - 07/23/2019 5:12 pm CLINICAL HISTORY: ABDOMINAL DISTENTION5 ABDOMINAL DISTENTIONchest pain, abdominal pain, abdominal distention COMPARISON: No comparisons TECHNIQUE: Axial 5 millimeter thick images of the chest, abdomen and pelvis were obtained without IV contrast. Oral contrast was administered. All CT scans are performed using dose optimization technique as appropriate and may include automated exposure control or mA/KV adjustment according to patient size. FINDINGS: The lungs are clear of mass and infiltrate. No pneumothorax or pleural effusion. No chest wall mass or abnormal axillary lymphadenopathy seen. Mediastinal and hilar regions show no mass or lymphadenopathy. No significant cardiac finding. The liver, spleen and pancreas show no significant findings for non contrast imaging. Cholecystectomy clips are present. No biliary tree dilatation. No hydronephrosis or suspicious renal mass. Isodense masses and pyelonephritis cannot be excluded on non contrast imaging. No adrenal abnormalities. No urinary bladder abnormalities. Uterus is absent. Ovaries are absent or atrophic. No dilated bowel loops or focal ball bowel wall thickening. Diverticulosis present without diverticulitis. No active GI process. No free air, free fluid or inflammatory stranding. No hernia, mass or bulky lymphadenopathy No acute vascular finding on noncontrast imaging. No acute compression fracture changes. Patient has degenerative change throughout the thoracic and lumbar spine. No pathologic component seen. Spinal stenosis is present at L3-4 and borderline stenosis at L4-5. Central canal detail is inherently limited. IMPRESSION: CT chest imaging shows no acute or emergent finding. CT abdomen and pelvis imaging shows no acute or emergent finding. Patient has significant lumbar spine degenerative change with spinal stenosis at L3-4 and borderline spinal stenosis at L4-5. CT abdomen and pelvis imaging shows no significant or suspicious finding. EXAM DESCRIPTION: CT - [id number] - 07/23/2019 5:11 pm CLINICAL HISTORY: Syncope, fall, head and neck injury COMPARISON: CT head and cervical June 15 TECHNIQUE: Axial 5 mm thick images of the head were obtained. Axial 2 mm thick images of the cervical spine were obtained with sagittal and coronal reconstruction images generated and reviewed. All CT scans are performed using dose optimization technique as appropriate and may include automated exposure control or mA/KV adjustment according to patient size. FINDINGS: No intracranial hemorrhage, mass, edema or acute intracranial finding. No suspicion for acute infarction. Atrophy and chronic ischemic changes match comparison. Ventricles remain in proportion to volume loss Mastoid air cells and paranasal sinuses are clear. No globe or orbit abnormality seen. Cervical bodies are normal in height. No fracture changes. No pathologic bone process. Slight anterior subluxation C3 on C4 and C4 on C5 are stable. C5-6 and C6-7 significant disc space narrowing and endplate spurring changes match comparison. No other significant disc space narrowing. Disc bulge and endplate spurring changes at C6-7 and C5-6 result in borderline spinal stenosis. There is significant left foraminal stenosis at C5-6. Prominent facet degenerative changes are seen throughout the cervical spine. Central canal detail is inherently limited. No paraspinal mass or hematoma. IMPRESSION: Negative CT head examination for acute or significant finding. Atrophy and chronic ischemic change match comparison. Advanced cervical spine degenerative change similar to comparison. No acute finding. EXAM DESCRIPTION: US - Renal Ultrasound-Complete - 07/24/2019 9:33 am CLINICAL HISTORY: BERTA COMPARISON: Chest Abd Pelvis Wo Con dated 07/23/2019; Head C Spine Mpr Wo Con dated 07/23/2019 FINDINGS: Both kidneys are normal in size, shape and echotexture. The right kidney measures 7.9 x 4.8 x 4.2 cm. No hydronephrosis, focal mass or perinephric fluid. The left kidney measures 8.6 x 3.3 x 3.2 cm.. Small echogenic calculus suspected mid pole left kidney and left renal pelvis. No hydronephrosis. No left renal mass. The urinary bladder is incompletely distended without gross abnormality seen. IMPRESSION: Left renal/renal pelvis calculi noted without hydronephrosis. Conclusions/Impression: A/ BERTA in the setting of dehydration responding to IVF. Hypocalcemia. CKD III. Anemia in chronic illness. Moderate malnutrition. Gout. P/ Continue current POC and Medications. Change IVF to 1/2NS. Start Vitamin D. Encourage nutrition. No NSAIDs. AM labs. Daily weight. Thank you kindly for the consultation.
--- NOTE | 2019-07-24 08:50 | EKG ---
Test Date: 2019-07-23 Test Time: 16:26:07 Water Sander: SWG MEASUREMENT RESULTS: Intervals: Rate: 77 MO: 172 QRSD: 100 QT: 404 QTc: 457 [place]: P: 66 MO: 172 QRS: -48 T: 89 INTERPRETIVE STATEMENTS: Normal sinus rhythm Left axis deviation Abnormal ECG Compared to ECG 06/15/2019 15:27:12 Ventricular premature complex(es) no longer present Incomplete right bundle-branch block no longer present Myocardial infarct finding no longer present Electronically Signed On 07-24-19 08:49:47 PURIFICATION OPERATOR by Julian Freedman
[2019-07-24] MEDS: VITAMIN D 5,000 UNIT CAP PO SCH (09:03)
[2019-07-24] MEDS: HEPARIN 5000 UNIT/ML 1 ML VIAL SQ SCH ×2 (09:04→20:47)
[2019-07-24] MEDS: MAGNESIUM HYDROXIDE 8% 30 ML PO PRN (09:04)
[2019-07-24] MEDS: NACHLORIDE 0.45% 1,000 ML IV SCH ×2 (09:04→20:47)
--- NOTE | 2019-07-24 10:58 | RAD REPORT ---
EXAM DESCRIPTION: US - Renal Ultrasound-Complete - 07/24/2019 9:33 am CLINICAL HISTORY: BERTA COMPARISON: Chest Abd Pelvis Wo Con dated 07/23/2019; Head C Spine Mpr Wo Con dated 07/23/2019 FINDINGS: Both kidneys are normal in size, shape and echotexture. The right kidney measures 7.9 x 4.8 x 4.2 cm. No hydronephrosis, focal mass or perinephric fluid. The left kidney measures 8.6 x 3.3 x 3.2 cm.. Small echogenic calculus suspected mid pole left kidney and left renal pelvis. No hydronephrosis. No left renal mass. The urinary bladder is incompletely distended without gross abnormality seen. IMPRESSION: Left renal/renal pelvis calculi noted without hydronephrosis.
[2019-07-25] MEDS: ACETAMINOPHEN 500 MG TAB PO PRN ×2 (01:11→15:26)
[2019-07-25 05:34] LABS: Potassium 4.2 mmol/L (3.5-5.1); Uric Acid 3.6 mg/dL (2.6-6.0)
[2019-07-25 05:47] LABS: Absolute Lymphocytes (CBC) 1.7 K/uL (0.7-4.9); Basophils % 0.7 % (0-1.3); Hematocrit 36.7 % (36.0-45.0); Lymphocytes % 27.8 % (15.3-44.8); MPV 10.4 fL (7.6-11.3); RBC Red Blood Cell Count 3.84 M/uL (3.86-4.86)
[2019-07-25 06:03] LABS: Urine Appearance CLEAR; Urine Bilirubin NEGATIVE (NEG); Urine Blood NEGATIVE (NEG); Urine Color YELLOW; Urine Glucose NEGATIVE (NEG); Urine Protein NEGATIVE (NEG); Urine Urobilinogen 0.2 mg/dL (0.2-1.0); Urine pH 5.5 (5.0-7.0)
[2019-07-25 06:14] LABS: Urine Bacteria <20 /HPF (<20); Urine Culture Reflex Order NOT NEEDED; Urine RBC NONE SEEN /HPF (NONE SEEN); Urine Urothelial Cells <5 /HPF (NONE SEEN)
[2019-07-25 06:22] LABS: UR MICROALBUMIN 0.6 mg/dL (< 1.9)
[2019-07-25] MEDS: VITAMIN D 5,000 UNIT CAP PO SCH (07:29)
[2019-07-25] MEDS: HEPARIN 5000 UNIT/ML 1 ML VIAL SQ SCH ×2 (07:29→21:18)
[2019-07-25] MEDS: NACHLORIDE 0.45% 1,000 ML IV SCH ×2 (07:29→21:34)
--- NOTE | 2019-07-25 08:47 | P.HP ---
Certification for Inpatient Patient admitted to: Inpatient With expected LOS: >2 Midnights Patient will require the following post-hospital care: None Practitioner: I am a practitioner with admitting privileges, knowledge of patient current condition, hospital course, and medical plan of care. Services: Services provided to patient in accordance with Admission requirements found in Title 42 Section 412.3 of the Code of Federal Regulations Patient History Date of Service: 07/23/19 Reason for admission: Dizziness History of Present Illness: Patient is an 79-year-old female who came to the hospital because she has been falling quite frequently. She has had multiple falls according to the family as they are normally able to view her at home-she stays at home alone but the family has cameras watching her. In the emergency room, she was found have acute renal failure. She will be admitted to the hospital for further evaluation of her syncope and the acute renal injury. We will hydrate her aggressively. We will monitor her renal function closely. If she does not improve with IV hydration that we may need to get a renal ultrasound. We will check a UA with microscopy as well. Patient also with generalized weakness and has had repeated falls. She will need to be admitted to the hospital for further neurologic evaluation. She will also need to have her renal function monitor closely. We will get physical therapy evaluation as well as case management evaluation. Allergies Sulfa (Sulfonamide Antibiotics) Allergy (Verified 06/16/19 01:04) Itching Home Medications: Atorvastatin Calcium [Lipitor] 1 tab PO DAILY 07/24/19 Docusate Sodium 1 tab PO DAILY 07/24/19 Donepezil [Aricept*] 1 tab PO BEDTIME 07/24/19 Levofloxacin [Levaquin] 1 tab PO DAILY 07/24/19 Levothyroxine [Synthroid*] 1 tab PO DAILY 07/24/19 Memantine HCl [Namenda*] 1 tab PO BID 07/24/19 Mirtazapine [Remeron*] 1 tab PO BEDTIME 07/24/19 Multivitamins with Iron 1 tab PO DAILY 07/24/19 Mupirocin Oint [Bactroban 2% Ointment*] 1 javier TOP BID 07/24/19 Nitrofurantoin Monohyd/M-Cryst [Nitrofurantoin Fallon-Mcr 100 mg] 1 tab PO DAILY 07/24/19 - Past Medical/Surgical History Has patient received pneumonia vaccine in the past: Yes Diabetic: No -: Hypothyroidism -: Hypothyroidism -: Hypertension -: Gout -: hyperlipidemia -: Right knee replacement -: lap cholecystectomy -: Hysterectomy Psychosocial/ Personal History: Patient currently lives by herself. Her is in an assisted living facility patient receives home health and physical therapy - Family History Mother Medical History: Cancer Notes: breast cancer Father Medical History: Other (see notes) Notes: arthritis - Social History Alcohol use: No CD- Drugs: No Caffeine use: No Place of Residence: Home Review of Systems 10-point ROS is otherwise unremarkable Physical Examination - Vital Signs Temperature: 98.1 F Blood Pressure: 148/71 Pulse: 79 Respirations: 16 Pulse Ox (%): 100 - Physical Exam General: Alert, In no apparent distress, Oriented x3 HEENT: Atraumatic, PERRLA, Mucous membr. moist/pink, EOMI, Sclerae nonicteric Neck: Supple, 2+ carotid pulse no bruit, No LAD, Without JVD or thyroid abnormality Respiratory: Clear to auscultation bilaterally, Normal air movement Cardiovascular: Regular rate/rhythm, Normal S1 S2, No murmurs Gastrointestinal: Normal bowel sounds, Soft and benign, Non-distended, No tenderness, No rebound, No guarding Musculoskeletal: No clubbing, No swelling, No tenderness Integumentary: No rashes Neurological: Normal gait, Normal speech, Normal tone, Sensation intact, Cranial nerves 3-12 intact, Normal affect, Abnormal strength Lymphatics: No axilla or inguinal lymphadenopathy - Studies Microbiology Data (last 24 hrs): 07/23/19 16:45 Clean Catch Urine [place] Count - Final 07/23/19 16:45 Clean Catch Urine - Final No growth. Assessment & Plan - Problems (Diagnosis) (1) BERTA (acute kidney injury) Current Visit: Yes Status: Acute (2) Status post fall Current Visit: No Status: Acute (3) Syncope Onset Date: 05/12/18 Current Visit: No Status: Acute Qualifiers: Syncope type: unspecified Qualified Code(s): R55 - Syncope and collapse (4) Diverticulosis Current Visit: No Status: Chronic Qualifiers: (5) Gout Onset Date: 05/12/18 Current Visit: No Status: Chronic (6) Hypertension Onset Date: 12/15/17 Current Visit: No Status: Chronic Qualifiers: (7) Hypothyroidism Onset Date: 12/15/17 Current Visit: No Status: Chronic Qualifiers: - Plan Plan: 1. IV fluids 2. echocardiogram and carotid Doppler 3. physical therapy evaluation 4. case management evaluation 5. monitor labs and renal function closely 6. nephrology consultation 7. Renal ultrasound 8. GI and DVT prophylaxis Discharge Plan: Home Plan to discharge in: Greater than 2 days - Advance Directives Does patient have a Living Will: No Does patient have a Durable POA for Healthcare: No - Code Status/Comfort Care Code Status Assessed: Yes Code Status: Full Code Critical Care: No Time Spent Managing PTS Care (In Minutes): 45
[2019-07-25] MEDS: MAGNESIUM HYDROXIDE 8% 30 ML PO PRN (18:07)
--- NOTE | 2019-07-25 18:11 | P.PN ---
Subjective Date of Service: 07/24/19 Chief Complaint: Dizziness Subjective: No new changes, Doing well Review of Systems General: Weakness, Malaise Eyes: Unremarkable ENT: Unremarkable Respiratory: Unremarkable Cardiovascular: Unremarkable Gastrointestinal: Unremarkable Genitourinary: Unremarkable Musculoskeletal: Unremarkable Neurological: Unremarkable Physical Examination - Vital Signs Temperature: 97.8 F Blood Pressure: 149/72 Pulse: 82 Respirations: 18 Pulse Ox (%): 98 - Physical Exam General: Alert, In no apparent distress, Oriented x2 HEENT: Atraumatic, Normocephalic Neck: Supple, 2+ carotid pulse no bruit, JVD not distended Respiratory: Clear to auscultation bilaterally, Normal air movement Cardiovascular: No edema, Normal pulses, Regular rate/rhythm, Normal S1 S2 Gastrointestinal: Normal bowel sounds, Soft and benign Musculoskeletal: No clubbing, No swelling Integumentary: No rashes, No breakdown Neurological: Normal speech, Normal tone, Sensation intact, Abnormal strength - Studies Microbiology Data (last 24 hrs): 07/23/19 16:45 Clean Catch Urine [place] Count - Final 07/23/19 16:45 Clean Catch Urine - Final No growth. Assessment And Plan - Plan 1. BERTA Likely due to dehydration. Started IVF. This is improving. Detention Sergeant was consulted and ordered renal US 2. possible syncope. CT head unremarkable. Echo adn carotid US were ordered. On PT 3. Fall. on PT. manager quantitative was consulted for SNF placement. 4. HTN. C/W home med. BP is stable. 5. Hypothyroidism. On home synthroid. 6. Dementia. C/W home aricept and memantine. Discharge Plan: Shelter
[2019-07-25 19:07] LABS: Magnesium 1.8 mg/dL (1.8-2.4); Phosphorus 2.8 mg/dL (2.5-4.9)
[2019-07-25] MEDS ORDERED: MAGNESIUM SULFATE 1 gm IVPB 1 GM/100 ML BAG IV ONE (19:09)
--- NOTE | 2019-07-25 19:11 | PN ---
Date of Progress Note: 07/25/2019 Subjective: Patient is seen and examined. Denies any complaints other than just feeling generalized malaise and fatigue. Objective: Vital Signs: Have been reviewed and are stable. General: She appears in no acute distress. Lungs: Clear to auscultation. Abdomen: Soft and nontender. Extremities: Without any evidence of edema. Laboratory Data: At this time is showing sodium of 143, potassium of 4.2, chloride of 113, BUN of 33 , and creatinine of 1.35, improving from previous creatinine of 1.75. CBC showing stable hemoglobin, hematocrit, platelet count, and WBC count. Current Medications: Have been reviewed in detail. She is receiving half normal saline at 75 cc an hour. Impression: 1.Acute renal failure secondary to dehydration, currently with improving renal function. We will co ntinue with the IV fluids for 1 more day and monitor her renal function closely. 2.Anemia of chronic disease, stable. 3.Chronic kidney disease, improving. 4.Moderate malnutrition. Plan: Patient is overall doing okay. Renal function is improving. Continue IV fluids for 1 more da y and avoid hypotension and nephrotoxins. VV/MODL Voice ID: [id number] Report ID: [id number]
[2019-07-25] MEDS ORDERED: DONEPEZIL HCL 5 MG TAB PO SCH (21:00)
[2019-07-25] MEDS ORDERED: MIRTAZAPINE 15 MG TAB PO SCH (21:00)
[2019-07-25] MEDS: MEMANTINE HCL 10 MG TABLET PO SCH (21:18)
[2019-07-25] MEDS: MUPIROCIN 2% OINT 22GM TUBE TOP SCH (21:19)
[2019-07-26] MEDS: ACETAMINOPHEN 500 MG TAB PO PRN ×2 (01:48→09:06)
[2019-07-26 04:51] LABS: Potassium 4.4 mmol/L (3.5-5.1)
[2019-07-26] MEDS ORDERED: LEVOTHYROXINE SOD 0.05 MG TABLET PO SCH (06:30)
[2019-07-26 08:45] VITALS: O2SAT 100
[2019-07-26] MEDS ORDERED: ATORVASTATIN 40 MG TAB PO SCH (09:00)
[2019-07-26] MEDS ORDERED: DOCUSATE NA 100 MG CAP PO SCH (09:00)
[2019-07-26] MEDS ORDERED: DOCUSATE SODIUM PO SCH (09:00)
[2019-07-26] MEDS ORDERED: MULTIVITAMIN TAB PO SCH (09:00)
[2019-07-26] MEDS: VITAMIN D 5,000 UNIT CAP PO SCH (09:06)
[2019-07-26] MEDS: HEPARIN 5000 UNIT/ML 1 ML VIAL SQ SCH (09:07)
[2019-07-26] MEDS: MEMANTINE HCL 10 MG TABLET PO SCH (09:07)
[2019-07-26] MEDS: MUPIROCIN 2% OINT 22GM TUBE TOP SCH (09:07)
--- NOTE | 2019-07-26 15:58 | P.DS ---
Admission Date: 07/23/19 Discharge Date: 07/27/19 Disposition: TRANSFER TO SNF - REHAB Discharge Condition: GOOD Reason for Admission: Dizziness Consultations: Economics Instructor-Dr. Foster - Problems (1) BERTA (acute kidney injury) Status: Acute (2) Anemia Onset Date: 12/15/17 Status: Acute Qualifiers: Anemia type: B12 deficiency Vitamin B12 deficiency anemia type: unspecified B12 deficiency Qualified Code(s): D51.9 - Vitamin B12 deficiency anemia, unspecified (3) Dehydration Status: Acute (4) Diarrhea Onset Date: 12/15/17 Status: Acute Qualifiers: Diarrhea type: unspecified type Qualified Code(s): R19.7 - Diarrhea, unspecified (5) Hypokalemia Status: Acute (6) Hypotension Onset Date: 05/12/18 Status: Acute Brief History of Present Illness: Patient is an 79-year-old female who came to the hospital because she has been falling quite frequently. She has had multiple falls according to the family as they are normally able to view her at home-she stays at home alone but the family has cameras watching her. In the emergency room, she was found have acute renal failure. She will be admitted to the hospital for further evaluation of her syncope and the acute renal injury. We will hydrate her aggressively. We will monitor her renal function closely. If she does not improve with IV hydration that we may need to get a renal ultrasound. We will check a UA with microscopy as well. Patient also with generalized weakness and has had repeated falls. She will need to be admitted to the hospital for further neurologic evaluation. She will also need to have her renal function monitor closely. We will get physical therapy evaluation as well as case management evaluation. Hospital Course: Patient is an 79-year-old female who came to the hospital because she has been falling quite frequently. In the emergency room, she was found have acute renal failure. She received IV fluid aggressively. Economics Instructor was consulted and ordered renal ultrasound. Renal ultrasound is unremarkable. CT head unremarkable. Carotid ultrasound is unremarkable. ECHO demonstrated normal ejection fraction. Overall, she is getting much better. Renal function returned to the normal range. She remains weak. Family is concerned of home safety. global product manager was consulted and patient was accepted to the SNF. Vital Signs/Physical Exam: Temp Pulse Resp BP Pulse Ox 97.7 F 81 18 158/70 H 99 07/26/19 12:00 07/26/19 12:00 07/26/19 12:00 07/26/19 12:00 07/26/19 12:00 General: Alert, In no apparent distress, Oriented x2, Cooperative HEENT: Atraumatic, Normocephalic, PERRLA, Mucous membr. moist/pink Neck: Supple, 2+ carotid pulse no bruit, JVD not distended Respiratory: Clear to auscultation bilaterally, Normal air movement Cardiovascular: No edema, Normal pulses, Regular rate/rhythm, Normal S1 S2, Abnormal S3, No gallops Gastrointestinal: Hypoactive, Soft and benign, No ascites, No tenderness Musculoskeletal: No clubbing, No swelling, No contractures, No erythema, No tenderness, No warmth Integumentary: No rashes, No breakdown, No significant lesion Neurological: Normal speech, Normal tone, Sensation intact, Cranial nerves 3-12 intact, Normal reflexes 2+, Normal affect, Abnormal strength (3-4/5) Laboratory Data at Discharge: WBC 6.3 K/uL (4.3-10.9) D 07/25/19 05:06 Hgb 12.7 g/dL (12.0-15.0) 07/25/19 05:06 Hct 36.7 % (36.0-45.0) 07/25/19 05:06 Plt Count 110 K/uL (152-406) L 07/25/19 05:06 PT 11.7 SECONDS (9.5-12.5) 07/23/19 16:10 INR 0.99 07/23/19 16:10 Sodium 142 mmol/L (136-145) 07/26/19 04:23 Potassium 4.4 mmol/L (3.5-5.1) 07/26/19 04:23 BUN 28 mg/dL (7-18) H 07/26/19 04:23 Creatinine 1.13 mg/dL (0.55-1.3) 07/26/19 04:23 Glucose 110 mg/dL (74-106) H 07/26/19 04:23 Uric Acid 3.6 mg/dL (2.6-6.0) 07/25/19 05:06 Phosphorus 2.8 mg/dL (2.5-4.9) 07/25/19 18:34 Magnesium 2.7 mg/dL (1.8-2.4) H D 07/26/19 04:23 Total Bilirubin 0.2 mg/dL (0.2-1.0) 07/24/19 04:01 AST 22 U/L (15-37) 07/24/19 04:01 ALT 19 U/L (12-78) 07/24/19 04:01 Alkaline Phosphatase 93 U/L (45-117) 07/24/19 04:01 Triglycerides 105 mg/dL (<150) 07/24/19 04:01 Cholesterol 112 mg/dL (<200) 07/24/19 04:01 HDL Cholesterol 69 mg/dL (40-60) H 07/24/19 04:01 Cholesterol/HDL Ratio 1.62 07/24/19 04:01 Lipase 143 U/L (73-393) 07/23/19 16:10 Home Medications: Atorvastatin Calcium [Lipitor] 1 tab PO DAILY 07/24/19 Docusate Sodium 1 tab PO DAILY 07/24/19 Donepezil [Aricept*] 1 tab PO BEDTIME 07/24/19 Levothyroxine [Synthroid*] 1 tab PO DAILY 07/24/19 Memantine HCl [Namenda*] 1 tab PO BID 07/24/19 Mirtazapine [Remeron*] 1 tab PO BEDTIME 07/24/19 Multivitamins with Iron 1 tab PO DAILY 07/24/19 Mupirocin Oint [Bactroban 2% Ointment*] 1 javier TOP BID 07/24/19 Cholecalciferol (Vitamin D3) [Vitamin D 5,000 IU Cap*] 5,000 unit PO DAILY #30 cap 07/26/19 New Medications: Cholecalciferol (Vitamin D3) [Vitamin D 5,000 IU Cap*] 5,000 unit PO DAILY #30 cap Patient Discharge Instructions: Pls follow up with PCP in 2 weeks. pls follow up with household refrigerator mechanic in 2 weeks Diet: AHA Activity: Ad celia Time spent managing pt's care (in minutes): 33
[2019-07-26 16:41] VITALS: BP 136/65; TEMP 97.8
--- NOTE | 2019-07-26 22:11 | P.PN ---
Date of Service: 07/26/19 Vital Signs Temp Pulse Resp BP Pulse Ox 97.8 F 86 18 136/65 99 07/26/19 16:00 07/26/19 16:00 07/26/19 16:00 07/26/19 16:00 07/26/19 16:00 Microbiology Results 07/23/19 16:45 Clean Catch Urine [place] Count - Final 07/23/19 16:45 Clean Catch Urine - Final No growth. Assessment/ Plan: Nephrology Feeling better. No acute events overnight. CPS stable without CP or SOB. Vitals, medications, blood work and imaging reviewed in the chart. General: In no apparent distress, Cooperative HEENT: Atraumatic Neck: Supple Respiratory: Clear to auscultation bilaterally Cardiovascular: No edema, Regular rate/rhythm Gastrointestinal: Soft and benign, Non-distended, No guarding Musculoskeletal: No clubbing, No contractures Integumentary: No rashes, No cyanosis Neurological: Normal speech Laboratory Data (last 24 hrs) 07/23/19 16:10: PT 11.7, INR 0.99 07/23/19 16:10: WBC 12.2 H, Hgb 13.0, Hct 38.9, Plt Count 155 07/23/19 16:10: Sodium 142, Potassium 3.7, BUN 31 H, Creatinine 2.25 H, Glucose 96, Magnesium 2.3, Total Bilirubin 0.4, AST 24, ALT 24, Alkaline Phosphatase 111 , Lipase 143 Imagings Data: EXAM DESCRIPTION: RAD - Chest Single View - 07/23/2019 4:48 pm CLINICAL HISTORY: COUGH COMPARISON: Chest Single View dated 06/02/2019; Chest Single View dated 2018 TECHNIQUE: AP portable chest image was obtained 07/23/2019 4:48 pm . FINDINGS: Lungs are clear. Heart and vasculature are normal. No measurable pleural effusion and no pneumothorax. No acute bony abnormality seen. No acute aortic findings suspected. IMPRESSION: No acute cardiopulmonary process. No significant change from comparison. EXAM DESCRIPTION: CT - Chest Abd Pelvis Wo Con - 07/23/2019 5:12 pm CLINICAL HISTORY: ABDOMINAL DISTENTION5 ABDOMINAL DISTENTIONchest pain, abdominal pain, abdominal distention COMPARISON: No comparisons TECHNIQUE: Axial 5 millimeter thick images of the chest, abdomen and pelvis were obtained without IV contrast. Oral contrast was administered. All CT scans are performed using dose optimization technique as appropriate and may include automated exposure control or mA/KV adjustment according to patient size. FINDINGS: The lungs are clear of mass and infiltrate. No pneumothorax or pleural effusion. No chest wall mass or abnormal axillary lymphadenopathy seen. Mediastinal and hilar regions show no mass or lymphadenopathy. No significant cardiac finding. The liver, spleen and pancreas show no significant findings for non contrast imaging. Cholecystectomy clips are present. No biliary tree dilatation. No hydronephrosis or suspicious renal mass. Isodense masses and pyelonephritis cannot be excluded on non contrast imaging. No adrenal abnormalities. No urinary bladder abnormalities. Uterus is absent. Ovaries are absent or atrophic. No dilated bowel loops or focal ball bowel wall thickening. Diverticulosis present without diverticulitis. No active GI process. No free air, free fluid or inflammatory stranding. No hernia, mass or bulky lymphadenopathy No acute vascular finding on noncontrast imaging. No acute compression fracture changes. Patient has degenerative change throughout the thoracic and lumbar spine. No pathologic component seen. Spinal stenosis is present at L3-4 and borderline stenosis at L4-5. Central canal detail is inherently limited. IMPRESSION: CT chest imaging shows no acute or emergent finding. CT abdomen and pelvis imaging shows no acute or emergent finding. Patient has significant lumbar spine degenerative change with spinal stenosis at L3-4 and borderline spinal stenosis at L4-5. CT abdomen and pelvis imaging shows no significant or suspicious finding. EXAM DESCRIPTION: CT - CTSPWOC - 07/23/2019 5:11 pm CLINICAL HISTORY: Syncope, fall, head and neck injury COMPARISON: CT head and cervical June 15 TECHNIQUE: Axial 5 mm thick images of the head were obtained. Axial 2 mm thick images of the cervical spine were obtained with sagittal and coronal reconstruction images generated and reviewed. All CT scans are performed using dose optimization technique as appropriate and may include automated exposure control or mA/KV adjustment according to patient size. FINDINGS: No intracranial hemorrhage, mass, edema or acute intracranial finding. No suspicion for acute infarction. Atrophy and chronic ischemic changes match comparison. Ventricles remain in proportion to volume loss Mastoid air cells and paranasal sinuses are clear. No globe or orbit abnormality seen. Cervical bodies are normal in height. No fracture changes. No pathologic bone process. Slight anterior subluxation C3 on C4 and C4 on C5 are stable. C5-6 and C6-7 significant disc space narrowing and endplate spurring changes match comparison. No other significant disc space narrowing. Disc bulge and endplate spurring changes at C6-7 and C5-6 result in borderline spinal stenosis. There is significant left foraminal stenosis at C5-6. Prominent facet degenerative changes are seen throughout the cervical spine. Central canal detail is inherently limited. No paraspinal mass or hematoma. IMPRESSION: Negative CT head examination for acute or significant finding. Atrophy and chronic ischemic change match comparison. Advanced cervical spine degenerative change similar to comparison. No acute finding. EXAM DESCRIPTION: US - Renal Ultrasound-Complete - 07/24/2019 9:33 am CLINICAL HISTORY: BERTA COMPARISON: Chest Abd Pelvis Wo Con dated 07/23/2019; Head C Spine Mpr Wo Con dated 07/23/2019 FINDINGS: Both kidneys are normal in size, shape and echotexture. The right kidney measures 7.9 x 4.8 x 4.2 cm. No hydronephrosis, focal mass or perinephric fluid. The left kidney measures 8.6 x 3.3 x 3.2 cm.. Small echogenic calculus suspected mid pole left kidney and left renal pelvis. No hydronephrosis. No left renal mass. The urinary bladder is incompletely distended without gross abnormality seen. IMPRESSION: Left renal/renal pelvis calculi noted without hydronephrosis. Conclusions/Impression: A/ BERTA in the setting of dehydration responding to IVF. Hypocalcemia. CKD III. Anemia in chronic illness. Moderate malnutrition. Gout. P/ Continue current POC and Medications. PT as tolerated. Encourage nutrition. No NSAIDs. AM labs. Daily weight.
--- NOTE | 2019-07-27 08:14 | ECHO ---
HEIGHT: 5 ft 8 in WEIGHT: 155 lb 12.8 oz DATE OF STUDY: 07/26/[address]: Davida Ross MD 2-DIMENSIONAL: YES M.MODE: YES DOPPLER: YES COLOR FLOW: YES TDS: NO PORTABLE: NO DEFINITY: NO BUBBLE STUDY: NO DIAGNOSIS: SYNCOPE CARDIAC HISTORY: CATHERIZATION: NO SURGERY: NO PROSTHETIC VALVE: NO PACEMAKER: NO MEASUREMENTS (cm) DIASTOLIC (NORMALS) SYSTOLIC (NORMALS) IVSd 0.6 (0.6-1.2) LA Diam 2.5 (1.9-4.0) LVEF 64% LVIDd 4.2 (3.5-5.7) LVIDs 2.8 (2.0-3.5) %FS 34% LVPWd 0.8 (0.6-1.2) Ao Diam 2.7 (2.0-3.7) 2 DIMENSIONAL ASSESSMENT: RIGHT ATRIUM: NORMAL LEFT ATRIUM: NORMAL RIGHT VENTRICLE: NORMAL LEFT VENTRICLE: NORMAL TRICUSPID VALVE: NORMAL MITRAL VALVE: NORMAL PULMONIC VALVE: NORMAL AORTIC VALVE: NORMAL PERICARDIAL EFFUSION: NONE AORTIC ROOT: NORMAL LEFT VENTRICULAR WALL MOTION: NORMAL DOPPLER/COLOR FLOW: MILD TRICUSPID REGURGITATION. NORMAL RIGHT VENTRICULAR SYSTOLIC PRESSURE. COMMENTS: NORMAL 2D ECHOCARDIOGRAM. MILD TRICUSPID REGURGITATION. TECHNOLOGIST: Maco GALARZA
== END 2019-07-26 17:27 | DRG 684 ==
LOC: ER 13:59 → ERHOLD 19:26 → 4TH 20:31
PROVIDERS: ADMIT Hospitalist; ATTEND Internal Medicine
DX: N17.9 Acute kidney failure, unspecified (principal); N18.3 Chronic kidney disease, stage 3 (moderate); E87.6 Hypokalemia; I12.9 Hypertensive chronic kidney disease with stage 1 through stage 4 chronic kidney disease, or unspecified chronic kidney disease; I95.9 Hypotension, unspecified; E03.9 Hypothyroidism, unspecified; R55 Syncope and collapse; K57.90 Diverticulosis of intestine, part unspecified, without perforation or abscess without bleeding; E83.51 Hypocalcemia; D63.8 Anemia in other chronic diseases classified elsewhere; D51.9 Vitamin B12 deficiency anemia, unspecified; F03.90 Unspecified dementia, unspecified severity, without behavioral disturbance, psychotic disturbance, mood disturbance, and anxiety; Z91.81 History of falling
CPT/HCPCS: 36415; 51702; 70450; 71045; 71250; 72125; 74176; 76770; 80048; 80053; 80061; 80076; 81001; 81003; 82043; 82570; 83605; 83690; 83735; 83880; 84100; 84484; 84550; 85025; 85610; 87086; 87088; 93005; 93306; 99285; J1644; J3475; J7030

== ENCOUNTER 2022-12-27 18:53 | Observation (INO) | payer OTHER ==
[2022-12-27 19:55] LABS: Absolute Lymphocytes (CBC) 1.6 K/uL (0.7-4.9); Hematocrit 35.9 % (36.0-45.0); Lymphocytes % 16.8 % (15.3-44.8); MCV 94.1 fL (80-100); MPV 8.2 fL (7.6-11.3); RBC Red Blood Cell Count 3.82 M/uL (3.86-4.86)
[2022-12-27 19:56] LABS: Protime INR 1.04
[2022-12-27] MEDS ORDERED: NA CHLORIDE 0.9% 500 ML ONE (20:01)
[2022-12-27 20:11] LABS: ALT/SGPT 31 U/L (13-56); AST/SGOT 25 U/L (15-37); Albumin 2.9 g/dL (3.4-5.0); Alkaline Phosphatase 146 U/L (45-117); BUN Blood Urea Nitrogen 22 mg/dL (7-18); Bicarbonate 25 mEq/L (21-32); Bilirubin Total 0.2 mg/dL (0.2-1.0); Glomerular Filtration Rate 40 ml/min (=/>90); Glucose Level 157 mg/dL (74-106); Magnesium 2.2 mg/dL (1.6-2.4); NT PRO-BNP 41 pg/mL (<450); Potassium 3.6 mEq/L (3.5-5.1); Protein, Total 6.8 g/dL (6.4-8.2); Sodium Level 138 mEq/L (136-145); Troponin High Sensitivity 6.6 pg/mL (<58.9)
--- NOTE | 2022-12-27 20:12 | RAD REPORT ---
EXAM DESCRIPTION: CT - Head C Spine Mpr Wo Con - 12/27/2022 7:54 pm CLINICAL HISTORY: Seizure. Head and neck injury status post fall. Head and neck pain COMPARISON: 2019 TECHNIQUE: Computed axial tomography of the head and cervical spine was obtained. Sagittal and coronal reconstruction was performed. All CT scans are performed using dose optimization technique as appropriate and may include automated exposure control or mA/KV adjustment according to patient size. FINDINGS: An intracranial bleed is not seen. The ventricles are normal in caliber. Mild low-density within periventricular, subcortical white matter probably ischemic changes secondary small vessel disease. An extra-axial fluid collection is not noted. Fluid within the visualized sinuses and mastoids is not seen A cervical fracture is not visualized. No dislocation is noted. Spondylosis involves the cervical spine. Mild anterior subluxation C3-C4 and C4 on C5 without signifi cant change IMPRESSION: No acute intracranial abnormality is seen. A cervical fracture is not visualized. If the patient continues to have symptoms to suggest intracranial /spinal cord pathology then MRI wou ld be recommended
[2022-12-27 20:23] LABS: Bilirubin Direct < 0.1 mg/dL (0-0.2); Bilirubin Indirect, Calculated ND mg/dL (0.2-0.8)
--- NOTE | 2022-12-27 20:25 | RAD REPORT ---
EXAM DESCRIPTION: Priya Single View12/27/2022 8:16 pm CLINICAL HISTORY: cough COMPARISON: 2019 FINDINGS: The lungs appear clear of acute infiltrate. The heart is normal size IMPRESSION: No acute abnormalities displayed
--- NOTE | 2022-12-27 20:27 | ER ---
Nurse's Notes [facility] Name: Hadley Landaverde Age: 82 yrs Sex: Female : 1940 Arrival Date: 12/27/2022 Time: 18:53 Bed 20 Private MD: Diagnosis: Syncope Near;Other seizures-VASOVAGAL;Dementia in other diseases classified elsewhere without behavioral disturbance;Unspecified kidney failure Presentation: 12/27 18:57 Chief complaint: EMS states: FROM [facility]. AWAKE. BACK TO NORMAL MENTAL db STATUS. IN WHEELCHAIR, STIFFENED BODY FOR 3 TO 5 MIN PER [facility]. DID NOT FALL OUT OF CHAIR. NO POSTICTAL EPISODE. Onset of symptoms was December 27, 2022. 18:57 Method Of Arrival: EMS: [facility] db 18:57 Acuity: RACHEL 2 db 19:00 Risk Assessment: Do you want to hurt yourself or someone else? Patient reports no rv desire to harm self or others. 19:00 Initial Sepsis Screen: Does the patient meet any 2 criteria? No. Patient's initial rv sepsis screen is negative. Does the patient have a suspected source of infection? No. Patient's initial sepsis screen is negative. 21:12 Coronavirus screen: Vaccine status:. Ebola Screen: Patient negative for fever greater rv than or equal to 101.5 degrees Fahrenheit, and additional compatible Ebola Virus Disease symptoms Patient denies exposure to infectious person. Patient denies travel to an Ebola-affected area in the 21 days before illness onset. Triage Assessment: 19:00 General: Appears comfortable, Behavior is calm, cooperative. rv Historical: - Allergies: 21:14 Sulfa (Sulfonamide Antibiotics); rv - PMHx: 21:14 allergies; Hypothyroidism; Hypertension; Gout; GERD; Dementia; Diabetes - NIDDM; rv - Immunization history:: Adult Immunizations up to date. - Family history:: not pertinent. - Social history:: Smoking status: unknown. Screenin:00 [facility] ED Fall Risk Assessment (Adult) History of falling in the last 3 months, rv including since admission No falls in past 3 months (0 pts) Confusion or Disorientation Yes (5 pts) Intoxicated or Sedated No (0 pts) Impaired Gait Yes (1 pt) Mobility Assist Device Used Yes (1 pt) Altered Elimination No (0 pt) Score/Fall Risk Level 3 or more points = High Risk Oriented to surroundings, Maintained a safe environment, Educated pt \T\ family on fall prevention, incl call for assistance when getting out of bed, Assessed \T\ reinforced patient's understanding of fall precautions, Provided non-skid footwear, Hourly rounding (assess needs \T\ fall precautionary measures) done, Used ambulatory aids as needed (educated on \T\ assisted with), Used gait belt as appropriate Implemented a Fall Risk Plan of Care, Apply high fall risk patient identification: yellow non skid footwear/ fall signage, Placed fall mat w/ non beveled edge next to bed, Activated bed/chair alarm, Remained w/in arm's length of patient and in sight while toileting, Offered frequent toileting (1:1 observation), Remained with patient while ambulating. 19:00 Abuse screen: Denies threats or abuse. Denies injuries from another. Nutritional rv screening: No deficits noted. Tuberculosis screening: No symptoms or risk factors identified. Assessment: 19:00 General: Appears in no apparent distress. comfortable, Behavior is calm, cooperative. rv 19:00 Pain: Denies pain. Neuro: Level of Consciousness is awake, confused, Oriented to rv person, place. Cardiovascular: Capillary refill < 3 seconds Rhythm is regular. Respiratory: Airway is patent Respiratory effort is even, unlabored. GI: No signs and/or symptoms were reported involving the gastrointestinal system. : No signs and/or symptoms were reported regarding the genitourinary system. Derm: Skin is intact. Vital Signs: 19:00 BP 132 / 62; Pulse 84; Resp 18; Temp 98; Pulse Ox 98% ; rv 20:00 BP 143 / 72; Pulse 84; Resp 17; Pulse Ox 98% on R/A; rv 21:15 BP 133 / 67; Pulse 81; Resp 18; Temp 98; Pulse Ox 99% on R/A; rv [place] Com[place] Score: 19:00 Eye Response: spontaneous(4). Motor Response: obeys commands(6). Verbal Response: rv confused(4). Total: 14. 19:53 Eye Response: spontaneous(4). Motor Response: obeys commands(6). Verbal Response: patria oriented(5). Total: 15. 21:15 Eye Response: spontaneous(4). Motor Response: obeys commands(6). Verbal Response: rv confused(4). Total: 14. NIH Stroke Scale Scores: 19:53 NIHSS Score: 0 patria ED Course: 18:56 Patient arrived in ED. db 19:00 Surinder Blackwell, RN is Primary Nurse. rv 19:00 Patient has correct armband on for positive identification. Placed in gown. Bed in low rv position. Call light in reach. Side rails up X2. 19:00 Seizure precautions initiated. Provided Education on: ambulation. assistance. rv elimination. . Client placed on continuous cardiac and pulse oximetry monitoring. NIBP monitoring applied. playground monitor on. 19:00 Arm band placed on right wrist. rv 19:01 Triage completed. db 19:11 Robin Salcido MD is Attending Physician. patria 19:46 Basic Metabolic Panel Sent. bc6 19:46 CBC with Diff Sent. bc6 19:46 LFT's Sent. bc6 19:46 Magnesium Sent. bc6 19:46 NT PRO-BNP Sent. bc6 19:46 PT-INR Sent. bc6 19:46 Troponin HS Sent. bc6 19:46 Inserted saline lock: 22 gauge in left forearm, using aseptic technique. bc6 19:57 CT Head C Spine In Process Unspecified. EDMS 20:18 XRAY Chest (1 view) In Process Unspecified. EDMS 20:25 William Erazo MD is Hospitalizing Provider. patria 21:11 No provider procedures requiring assistance completed. Patient admitted, IV remains in rv place. Administered Medications: 20:22 Drug: NS 0.9% IV 500 ml Route: IV; Rate: bolus; Site: left forearm; rv 21:15 Follow up: IV Status: Completed infusion; IV Intake: 500ml rv Medication: 21:13 VIS not applicable for this client. rv Intake: 21:15 IV: 500ml; Total: 500ml. rv Outcome: 20:27 Decision to Hospitalize by Provider. patria 21:11 Admitted to Tele accompanied by tech, via stretcher, room 404, with chart, Report rv called to aiden figueroa 21:11 Condition: good 21:11 Instructed on the need for admit. 21:53 Patient left the ED. rv NIH Stroke Scale - NIH Stroke Score Date: 12/27/2022 Time: 19:53 Total Score = 0 10. Dysarthria (speech clarity - read or repeat words) - 0(Normal) 11. Extinction and Inattention (visual/tactile/auditory/spatial/personal) - 0(No abnormality) 1a. Level of Consciousness (LOC) - 0(Alert) 1b. Level of Consciousness (LOC) (Month \T\ Age) - 0(Both) 1c. LOC Commands (Open \T\ Closes Eyes/Cheese Blender) - 0(Both) 2. Best Gaze (Lateral Gaze Paresis) - 0(Normal) 3. Visual Field Loss - 0(No visual loss) 4. Facial Palsy - 0(Normal) 5a. Left Arm: Motor (10-second hold) - 0(No drift) 5b. Right Arm: Motor (10-second hold) - 0(No drift) 6a. Left Leg: Motor (5-second hold - always test supine) - 0(No drift) 6b. Right Leg: Motor (5-second hold - always test supine) - 0(No drift) 7. Limb Ataxia (finger/nose \T\ heel/blanton - test with eyes open) - 0(Absent) 8. Sensory Loss (pinprick arms/legs/face) - 0(Normal) 9. Best Language: Aphasia (description/naming/reading) - 0(No aphasia) Initials: patria Signatures: Dispatcher [employer] Robin Amaya MD MD cha Vicente, Ronaldo RN Zoila Lewis RN Chelsie Tracy bc6
--- NOTE | 2022-12-27 20:27 | EDPHYS ---
Physician Documentation [facility] Name: Hadley Landaverde Age: 82 yrs Sex: Female : 1940 Arrival Date: 12/27/2022 Time: 18:53 Bed 20 Private MD: ANJEL Physician Robin Salcido HPI: 12/27 19:53 This 82 yrs old Female presents to ER via EMS with complaints of Seizure. patria 19:53 The patient presents after having a single isolated seizure, that lasted 30 second(s). patria Character of seizure(s): Loss of consciousness: the patient experienced loss of consciousness, Motor activity: generalized, shaking all over. Seizure onset: just prior to arrival. Context: the seizure(s) was witnessed, by a daycare worker, occurred at a senior care or assisted living facility, occurred while the patient was sitting. Seizure Hx: the patient has no previous seizure history. Associated injury: The patient did not suffer any apparent associated injury. Current symptoms: Currently, the patient is not experiencing any symptoms, the patient feels back to baseline. The patient has not experienced similar symptoms in the past. Historical: - Allergies: 21:14 Sulfa (Sulfonamide Antibiotics); rv - PMHx: 21:14 allergies; Hypothyroidism; Hypertension; Gout; GERD; Dementia; Diabetes - NIDDM; rv - Immunization history:: Adult Immunizations up to date. - Family history:: not pertinent. - Social history:: Smoking status: unknown. ROS: 19:53 Constitutional: Negative for fever, chills, and weight loss, Eyes: Negative for injury, patria pain, redness, and discharge, ENT: Negative for injury, pain, and discharge, Neck: Negative for injury, pain, and swelling, Cardiovascular: Negative for chest pain, palpitations, and edema, Respiratory: Negative for shortness of breath, cough, wheezing, and pleuritic chest pain, Abdomen/GI: Negative for abdominal pain, nausea, vomiting, diarrhea, and constipation, Back: Negative for injury and pain, : Negative for injury, bleeding, discharge, and swelling, MS/Extremity: Negative for injury and deformity, Skin: Negative for injury, rash, and discoloration, Psych: Negative for depression, anxiety, suicide ideation, homicidal ideation, and hallucinations, Allergy/Immunology: Negative for hives, rash, and allergies, Endocrine: Negative for neck swelling, polydipsia, polyuria, polyphagia, and marked weight changes, Hematologic/Lymphatic: Negative for swollen nodes, abnormal bleeding, and unusual bruising. 19:53 Neuro: Positive for seizure activity, weakness. Exam: 19:53 Constitutional: This is a well developed, well nourished patient who is awake, alert, patria and in no acute distress. Head/Face: Normocephalic, atraumatic. Eyes: Pupils equal round and reactive to light, extra-ocular motions intact. Lids and lashes normal. Conjunctiva and sclera are non-icteric and not injected. Cornea within normal limits. Periorbital areas with no swelling, redness, or edema. ENT: Nares patent. No nasal discharge, no septal abnormalities noted. Tympanic membranes are normal and external auditory canals are clear. Oropharynx with no redness, swelling, or masses, exudates, or evidence of obstruction, uvula midline. Mucous membranes moist. Neck: Trachea midline, no thyromegaly or masses palpated, and no cervical lymphadenopathy. Supple, full range of motion without nuchal rigidity, or vertebral point tenderness. No Meningismus. Chest/axilla: Normal chest wall appearance and motion. Nontender with no deformity. No lesions are appreciated. Cardiovascular: Regular rate and rhythm with a normal S1 and S2. No gallops, murmurs, or rubs. Normal PMI, no JVD. No pulse deficits. Respiratory: Lungs have equal breath sounds bilaterally, clear to auscultation and percussion. No rales, rhonchi or wheezes noted. No increased work of breathing, no retractions or nasal flaring. Abdomen/GI: Soft, non-tender, with normal bowel sounds. No distension or tympany. No guarding or rebound. No evidence of tenderness throughout. Back: No spinal tenderness. No costovertebral tenderness. Full range of motion. Skin: Warm, dry with normal turgor. Normal color with no rashes, no lesions, and no evidence of cellulitis. MS/ Extremity: Pulses equal, no cyanosis. Neurovascular intact. Full, normal range of motion. Neuro: Awake and alert, GCS 15, oriented to person, place, time, and situation. Cranial nerves II-XII grossly intact. Motor strength 5/5 in all extremities. Sensory grossly intact. Cerebellar exam normal. Normal gait. Psych: Awake, alert, with orientation to person, place and time. Behavior, mood, and affect are within normal limits. 19:53 ECG was reviewed by the Attending Physician. Vital Signs: 19:00 BP 132 / 62; Pulse 84; Resp 18; Temp 98; Pulse Ox 98% ; rv 20:00 BP 143 / 72; Pulse 84; Resp 17; Pulse Ox 98% on R/A; rv 21:15 BP 133 / 67; Pulse 81; Resp 18; Temp 98; Pulse Ox 99% on R/A; rv NIH Stroke Scale Scores: 19:53 NIHSS Score: 0 patria [place] Coma Score: 19:00 Eye Response: spontaneous(4). Motor Response: obeys commands(6). Verbal Response: rv confused(4). Total: 14. 19:53 Eye Response: spontaneous(4). Motor Response: obeys commands(6). Verbal Response: patria oriented(5). Total: 15. 21:15 Eye Response: spontaneous(4). Motor Response: obeys commands(6). Verbal Response: rv confused(4). Total: 14. MDM: 19:11 Patient medically screened. patria 19:55 Differential diagnosis: cerebral vascular accident, cardiac arrhythmia, seizure, TIA. patria Data reviewed: vital signs, nurses notes, EMS record, lab test result(s), EKG, radiologic studies, CT scan, plain films. Consideration of Admission/Observation Escalation of care including admission/observation considered. Management of patient was discussed with the following: Hospitalist: LAKISHA ROGEL. I considered the following discharge prescriptions or medication management in the emergency department Medications were administered in the Emergency Department. See MAR. Test considered but Not performed: MRI: MRI BRAIN. Historians other than the Patient: EMS: EMS WELL INFORMED. Care significantly affected by the following chronic conditions: Diabetes, Hypertension, DEMERNTIA, PUD. Counseling: I had a detailed discussion with the patient and/or guardian regarding: the historical points, exam findings, and any diagnostic results supporting the discharge/admit diagnosis, lab results, radiology results, the need for further work-up and treatment in the hospital. 12/27 19:12 Order name: Basic Metabolic Panel; Complete Time: 20:24 [facility] 12/27 19:12 Order name: CBC with Diff; Complete Time: 19:59 12/27 19:12 Order name: LFT's; Complete Time: 20:24 [facility] 12/27 19:12 Order name: Magnesium; Complete Time: 20:24 12/27 19:12 Order name: NT PRO-BNP; Complete Time: 20:24 12/27 19:12 Order name: PT-INR; Complete Time: 19:59 patria 12/27 19:12 Order name: Troponin HS; Complete Time: 20:24 12/27 19:12 Order name: Urinalysis w/ reflexes 12/27 19:12 Order name: XRAY Chest (1 view); Complete Time: 20:27 [facility] 12/27 19:12 Order name: CT Head C Spine; Complete Time: 20:22 [facility] 12/27 19:12 Order name: EKG; Complete Time: 19:13 [facility] 12/27 19:12 Order name: Cardiac monitoring; Complete Time: 19:27 [facility] 12/27 19:12 Order name: EKG - Nurse/Tech; Complete Time: 19:27 12/27 19:12 Order name: IV Saline Lock; Complete Time: 19:27 [facility] 12/27 19:12 Order name: Labs collected and sent; Complete Time: 19:27 [facility] 12/27 19:12 Order name: O2 Per Protocol; Complete Time: 19:27 [facility] 12/27 19:12 Order name: O2 Sat Monitoring; Complete Time: 19:27 [facility] 12/27 19:12 Order name: Seizure Precautions; Complete Time: 19:27 [facility] EC:53 Rate is 85 beats/min. Rhythm is regular. QRS [place] is Normal. [place] interval is normal. QRS patria interval is normal. QT interval is normal. No Q waves. T waves are Normal. No ST changes noted. Clinical impression: NSR w/ Non-specific ST/T Changes and No evidence of ischemia. Interpreted by me. Reviewed by me. Administered Medications: 20:22 Drug: NS 0.9% IV 500 ml Route: IV; Rate: bolus; Site: left forearm; rv 21:15 Follow up: IV Status: Completed infusion; IV Intake: 500ml rv Disposition Summary: 12/27/22 20:27 Hospitalization Ordered Hospitalization Status: Observation patria Provider: William Erazo cha Location: Telemetry/MedSurg (observation) patria Condition: Fair patria Problem: new patria Symptoms: have improved patria Bed/Room Type: Standard patria Room Assignment: 404(12/27/22 20:54) mw Diagnosis - Syncope Near patria - Dementia in other diseases classified elsewhere without behavioral disturbance patria - Unspecified kidney failure patria - Other seizures - VASOVAGAL(12/27/22 20:37) patria Forms: - Medication Reconciliation Form patria - SBAR form patria NIH Stroke Scale - NIH Stroke Score Date: 12/27/2022 Time: 19:53 Total Score = 0 10. Dysarthria (speech clarity - read or repeat words) - 0(Normal) 11. Extinction and Inattention (visual/tactile/auditory/spatial/personal) - 0(No abnormality) 1a. Level of Consciousness (LOC) - 0(Alert) 1b. Level of Consciousness (LOC) (Month \T\ Age) - 0(Both) 1c. LOC Commands (Open \T\ Closes Eyes/[place]) - 0(Both) 2. Best Gaze (Lateral Gaze Paresis) - 0(Normal) 3. Visual Field Loss - 0(No visual loss) 4. Facial Palsy - 0(Normal) 5a. Left Arm: Motor (10-second hold) - 0(No drift) 5b. Right Arm: Motor (10-second hold) - 0(No drift) 6a. Left Leg: Motor (5-second hold - always test supine) - 0(No drift) 6b. Right Leg: Motor (5-second hold - always test supine) - 0(No drift) 7. Limb Ataxia (finger/nose \T\ heel/[place] - test with eyes open) - 0(Absent) 8. Sensory Loss (pinprick arms/legs/face) - 0(Normal) 9. Best Language: Aphasia (description/naming/reading) - 0(No aphasia) Initials: patria Signatures: Dispatcher [employer] EDRandi Peterson RN RN mw Anderson, Corey, MD MD cha Vicente, Ronaldo, RN RN rv Corrections: (The following items were deleted from the chart) 20:37 20:27 Other seizures patria patria 20:54 20:27 patria mw
--- NOTE | 2022-12-27 20:57 | P.HP ---
Certification for Inpatient Patient admitted to: Observation With expected LOS: <2 Midnights Patient will require the following post-hospital care: None Practitioner: I am a practitioner with admitting privileges, knowledge of patient current condition, hospital course, and medical plan of care. Services: Services provided to patient in accordance with Admission requirements found in Title 42 Section 412.3 of the Code of Federal Regulations Patient History Date of Service: 12/27/22 Reason for admission: Syncope versus seizure History of Present Illness: 82-year-old female with history of dementia, shw-[id number]-sbfcjpbgr diabetes, gout, hypertension, hypothyroidism, hyperlipidemia, GERD presents to the emergency department with chief complaint of possible seizure/syncope. Staff from [facility] reported witnessing patient "stiffening up" for approximately 3 to 5 minutes while sitting in a wheelchair, she did not fall out of the chair and there was no postictal period following the event. She is back to her baseline currently which is oriented x2. She denies any complaints currently, she is evaluated in the ER CT head/C-spine negative for acute findings Labs remarkable for stable mild CKD. EKG without STEMI criteria or other arrhythmia noted. ED provider wishes to admit in observation. ED physician did speak with neurology prior to admission. Allergies Sulfa (Sulfonamide Antibiotics) Allergy (Verified 06/16/19 01:04) Itching Home Medications: Atorvastatin Calcium [Lipitor] 1 tab PO DAILY 07/24/19 Docusate Sodium 1 tab PO DAILY 07/24/19 Donepezil [Aricept*] 1 tab PO BEDTIME 07/24/19 Levothyroxine [Synthroid*] 1 tab PO DAILY 07/24/19 Memantine HCl [Namenda*] 1 tab PO BID 07/24/19 Mirtazapine [Remeron*] 1 tab PO BEDTIME 07/24/19 Multivitamins with Iron 1 tab PO DAILY 07/24/19 Mupirocin Oint [Bactroban 2% Ointment*] 1 javier TOP BID 07/24/19 Cholecalciferol (Vitamin D3) [Vitamin D 5,000 IU Cap*] 5,000 unit PO DAILY #30 cap 07/26/19 - Past Medical/Surgical History Diabetic: No -: Hypothyroidism -: Hypothyroidism -: Hypertension -: Gout -: hyperlipidemia -: Right knee replacement -: lap cholecystectomy -: Hysterectomy Psychosocial/ Personal History: Patient currently lives at [facility] - Family History Mother -: Cancer Notes: breast cancer Father -: Other (see notes) Notes: arthritis - Social History Alcohol use: No CD- Drugs: No Caffeine use: No Place of Residence: Home Review of Systems is unable to be obtained Physical Examination - Physical Exam General: Alert, In no apparent distress, Oriented x2 HEENT: Atraumatic, PERRLA, Mucous membr. moist/pink, EOMI, Sclerae nonicteric Neck: Supple, 2+ carotid pulse no bruit, No LAD, Without JVD or thyroid abnormality Respiratory: Clear to auscultation bilaterally, Normal air movement Cardiovascular: Regular rate/rhythm, Normal S1 S2 Capillary refill: <2 Seconds (NIH score is 2 since she does not know her age or the month) Gastrointestinal: Normal bowel sounds, No tenderness Musculoskeletal: No tenderness Integumentary: No rashes Neurological: Normal gait, Normal speech, Normal strength at 5/5 x4 extr, Normal tone, Normal affect Lymphatics: No axilla or inguinal lymphadenopathy - Studies Laboratory Data (last 24 hrs) 12/27/22 19:43: PT 11.4, INR 1.04 12/27/22 19:43: WBC 9.50, Hgb 12.4, Hct 35.9 L, Plt Count 174 12/27/22 19:43: Sodium 138, Potassium 3.6, BUN 22 H, Creatinine 1.31 H, Glucose 157 H, Magnesium 2.2, Total Bilirubin 0.2, AST 25, ALT 31, Alkaline Phosphatase 146 H Assessment and Plan - Plan Assessment: Syncope versus seizure Dementia Diabetes mellitus type [id number] Hypertension Hyperlipidemia Hypothyroidism GERD Plan: Syncope versus seizure Event witnessed by nursing staff who reported "stiffening" for approximate 3 to 5 minutes. Unclear if patient lost consciousness during this time, there was no postictal period present. She did not fall no other injuries noted. She has no known history of seizures but has had admissions previously for syncope. Patient cannot recall events but is at baseline oriented x2 with history of dementia. CT head negative for acute findings labs unremarkable aside from mild stable CKD. Will consult neurology, ED discussed with neurology prior to admission. Monitor on telemetry, trend troponins. Obtain echocardiogram/carotid Doppler. Dementia Stable, continue home meds. Diabetes mellitus type [id number] ACHS Accu-Chek, sliding scale insulin, A1c in the morning. Hypertension Hyperlipidemia Hypothyroidism GERD Continue on medications. DVT PPX:Lovenox Code status: SCD Discharge Plan: Home Plan to discharge in: 24 Hours - Advance Directives Does patient have a Living Will: No Does patient have a Durable POA for Healthcare: No - Code Status/Comfort Care Code Status Assessed: Yes (Full code) Critical Care: No Time Spent Managing Pts Care (In Minutes): 55
[2022-12-27] MEDS ORDERED: ONDANSETRON 4 MG/2 ML VIAL IV PRN (21:42)
[2022-12-27] MEDS: INSULIN -REGULAR HUMAN 50 UNIT/0.5 ML ML SQ SCH (21:42)
[2022-12-27] MEDS ORDERED: ACETAMINOPHEN 500 MG TAB PO PRN (21:42)
[2022-12-27] MEDS: NA CHLORIDE 0.9% 1,000 ML IV SCH (22:17)
[2022-12-27 22:48] VITALS: O2SAT 95; BMI 29.8
[2022-12-27] MEDS ORDERED: HYDRALAZINE HCL 20 MG/ML VIAL IV PRN (23:32)
[2022-12-27 23:42] LABS: Troponin High Sensitivity 6.9 pg/mL (<58.9)
[2022-12-28 06:54] LABS: Absolute Lymphocytes (CBC) 2.6 K/uL (0.7-4.9); Hematocrit 32.7 % (36.0-45.0); Lymphocytes % 31.7 % (15.3-44.8); MCV 95.4 fL (80-100); MPV 8.1 fL (7.6-11.3); RBC Red Blood Cell Count 3.43 M/uL (3.86-4.86)
--- NOTE | 2022-12-28 07:20 | RAD REPORT ---
EXAM DESCRIPTION: USCarotid Artery Bilateral12/28/2022 12:47 am CLINICAL HISTORY: syncope COMPARISON: None FINDINGS: The velocity of the right internal carotid artery equals 40 cm/sec. The right ICA/CCA rati o normal The velocity of the left internal carotid artery equals 40 cm/sec. The left ICA/CCA ratio normal Mild plaque is present within the carotid arteries. The vertebral arteries demonstrate antegrade flow IMPRESSION: Mild plaque within the carotid arteries without evidence of a hemodynamically significan t stenosis NASCET criteria used. Mild 0-49% stenosis Moderate 50-69% stenosis Severe 70-99% stenosis
[2022-12-28 07:23] LABS: Potassium 3.5 mEq/L (3.5-5.1); Thyroid Stimulating Hormone 2.57 uIU/mL (0.358-3.740); Troponin High Sensitivity 6.9 pg/mL (<58.9)
[2022-12-28] MEDS ORDERED: LEVOTHYROXINE SOD 0.05 MG TABLET PO SCH (07:30)
[2022-12-28] MEDS: INSULIN -REGULAR HUMAN 50 UNIT/0.5 ML ML SQ SCH ×2 (07:30→11:30)
[2022-12-28] MEDS ORDERED: allopurinoL 100 MG TAB PO SCH (09:00)
[2022-12-28] MEDS ORDERED: POTASSIUM CL SA 10 MEQ TAB PO ONE (09:00)
[2022-12-28] MEDS ORDERED: AMLODIPINE 5 MG TAB PO SCH (09:00)
[2022-12-28] MEDS ORDERED: ENOXAPARIN 40 MG/0.4 ML SQ SCH (09:00)
[2022-12-28 12:04] VITALS: BP 143/53; TEMP 97.8
[2022-12-28] MEDS: NA CHLORIDE 0.9% 1,000 ML IV SCH (12:29)
--- NOTE | 2022-12-28 13:41 | P.DS ---
Admission Date: 12/27/22 Discharge Date: 12/28/22 Disposition: TRANSFER TO RETIREMENT Comment: [facility] Discharge Condition: GOOD Reason for Admission: Syncope versus seizure Consultations: 1. Neurology Hospital Course: DIAGNOSES: # Possible Convulsive Syncope vs Seizure # KDIGO Stage I Acute Kidney Injury - improved # Advanced Dementia # Type II Diabetes Mellitus # Hypertension # Hyperlipidemia # Hypothyroidism # Gastroesophageal Reflux Disease HOSPITAL COURSE: Ms. Hadley Landaverde is an 82 year old female with a past medical history significant for advanced dementia, type II diabetes mellitus, hypertension, hyperlipidemia, hypothyroidism, and gastroesophageal reflux disease who was admitted to the [facility] on 12/27/2022 for a possible syncopal episode. She was admitted to the Medicine service. Upon further evaluation, her chest x- ray revealed, "no acute abnormalities displayed." CT head/cervical spine reveale d, "no acute intracranial abnormality is seen. A cervical fracture is not visualized." Her carotid ultrasound revealed, "mild plaque within the carotid arteries without evidence of a hemodynamically significant stenosis." This morning, I was able to speak with her son, Mr. Martell, who explained that she has had these episodes of "stiffness" for over 3 years. He states that she has had an extensive evaluation and was told that it was because of her blood pressure "running too low." She is now completely back to baseline without issues. Neurology was consulted and I spoke with Dr. Cervantes. He reviewed her case and recommended outpatient evaluation. He stated that she can follow-up with him in clinic and he can order and MRI brain and EEG, if needed. He recommended no additional medications at this time. In regards to her anti-hypertensive regimen, her lisinopril dose was reduced from 20 mg to 10 mg. On 12/28/2022, she was seen on rounds and deemed medically stable for discharge. She was discharged with instructions to schedule follow-up appointments with her PCP and with Neurology (Dr. Cervantes). She and her family members were given the opportunity to ask questions and reported no further questions. Furthermore, all questions were answered to the best of my ability. A copy of this discharge summary will be sent to the above providers to facilitate continuity of care. Today, I personally spent 25 minutes on her case, of which greater than 50% of the time was spent in patient education, counseling, and coordination of care as described above. Vital Signs/Physical Exam: Temp Pulse Resp BP Pulse Ox 97.8 F 82 16 143/53 H 100 12/28/22 12:00 12/28/22 12:00 12/28/22 12:00 12/28/22 12:00 12/28/22 12:00 General: Alert, In no apparent distress, Oriented x1 HEENT: Atraumatic, Mucous membr. moist/pink, Sclerae nonicteric Neck: JVD not distended Respiratory: Clear to auscultation bilaterally, Normal air movement Cardiovascular: No edema, Regular rate/rhythm, Normal S1 S2, No gallops, No rubs, No murmurs Gastrointestinal: Normal bowel sounds, Soft and benign, Non-distended, No tenderness, No rebound, No guarding Musculoskeletal: No clubbing Integumentary: No rashes Neurological: Normal speech, Normal strength at 5/5 x4 extr, Sensation intact, Normal affect Laboratory Data at Discharge: WBC 8.20 thou/uL (4.3-10.9) 12/28/22 06:14 Hgb 11.0 g/dL (12.0-15.0) L D 12/28/22 06:14 Hct 32.7 % (36.0-45.0) L 12/28/22 06:14 Plt Count 139 thou/uL (152-406) L 12/28/22 06:14 PT 11.4 SECONDS (9.5-12.5) 12/27/22 19:43 INR 1.04 12/27/22 19:43 Sodium 141 mEq/L (136-145) 12/28/22 06:14 Potassium 3.5 mEq/L (3.5-5.1) 12/28/22 06:14 BUN 20 mg/dL (7-18) H 12/28/22 06:14 Creatinine 1.05 mg/dL (0.55-1.02) H 12/28/22 06:14 Glucose 94 mg/dL (74-106) 12/28/22 06:14 Magnesium 2.2 mg/dL (1.6-2.4) 12/27/22 19:43 Total Bilirubin 0.2 mg/dL (0.2-1.0) 12/27/22 19:43 AST 25 U/L (15-37) 12/27/22 19:43 ALT 31 U/L (13-56) 12/27/22 19:43 Alkaline Phosphatase 146 U/L (45-117) H 12/27/22 19:43 Triglycerides 150 mg/dL (<150) 12/28/22 06:14 Cholesterol 115 mg/dL (<200) 12/28/22 06:14 HDL Cholesterol 45 mg/dL (40-60) 12/28/22 06:14 Cholesterol/HDL Ratio 2.56 12/28/22 06:14 Home Medications: Donepezil [Aricept*] 1 tab PO BEDTIME 07/24/19 Levothyroxine [Synthroid*] 1 tab PO DAILY 07/24/19 Acetaminophen [Pain Relief] 1 tab PO Q6H PRN 12/27/22 Allopurinol 1 tab PO DAILY 12/27/22 Amlodipine Besylate 1 tab PO DAILY 12/27/22 Ascorbic Acid [Vitamin C] 1 tab PO DAILY 12/27/22 lisinopriL [Lisinopril] 10 mg PO DAILY #30 12/28/22 New Medications: lisinopriL [Lisinopril] 10 mg PO DAILY #30 Physician Discharge Instructions: 1. Please call and schedule a follow-up appointment with your PCP in 3-5 days - Your blood work showed mild anemia. Please discuss with your PCP for further evaluation. 2. Please call and schedule a follow-up appointment with Neurology (Dr. Cervantes) in 5-7 days - At this appointment, he will consider ordering an MRI and possibly an EEG (electrical brain study) to evaluate for seizures - Please reduce your home lisinopril dose from 20 mg to 10 mg Diet: AHA Activity: Fall precautions Time spent managing pt's care (in minutes): 25
--- NOTE | 2022-12-28 20:39 | EKG ---
Test Date: 2022-12-27 Test Time: 19:20:27 Hands Hanger: LEÓN MEASUREMENT RESULTS: Intervals: Rate: 85 CA: 186 QRSD: 110 QT: 400 QTc: 476 [place]: P: 67 CA: 186 QRS: -68 T: 93 INTERPRETIVE STATEMENTS: Normal sinus rhythm Left axis deviation Left ventricular hypertrophy with repolarization abnormality Abnormal ECG Compared to ECG 07/23/2019 16:26:07 Left ventricular hypertrophy now present Early repolarization now present Electronically Signed On 12-28-22 20:37:40 CDT by Perez Wolfe
[2022-12-28] MEDS ORDERED: DONEPEZIL HCL 5 MG TAB PO SCH (21:00)
--- NOTE | 2022-12-29 07:11 | ECHO ---
HEIGHT: 5 ft 6 in WEIGHT: 185 lb 0 oz DATE OF STUDY: 12/28/[address]: Denis Perez NP 2-DIMENSIONAL: YES M.MODE: YES DOPPLER: YES COLOR FLOW: YES TDS: YES PORTABLE: YES DEFINITY: BUBBLE STUDY: DIAGNOSIS: SYNCOPE CARDIAC HISTORY: CATHERIZATION: NO SURGERY: NO PROSTHETIC VALVE: NO PACEMAKER: NO MEASUREMENTS (cm) DIASTOLIC (NORMALS) SYSTOLIC (NORMALS) IVSd 0.9 (0.6-1.2) LA Diam 1.9 (1.9-4.0) LVEF 79% LVIDd 4.8 (3.5-5.7) LVIDs 2.5 (2.0-3.5) %FS 48% LVPWd 0.9 (0.6-1.2) Ao Diam 2.3 (2.0-3.7) 2 DIMENSIONAL ASSESSMENT: RIGHT ATRIUM: NORMAL LEFT ATRIUM: NORMAL RIGHT VENTRICLE: NORMAL LEFT VENTRICLE: NORMAL TRICUSPID VALVE: NORMAL MITRAL VALVE: MITRAL ANNULAR CALCIFICATION PULMONIC VALVE: NORMAL AORTIC VALVE: SCLEROSIS PERICARDIAL EFFUSION: NONE AORTIC ROOT: NORMAL LEFT VENTRICULAR WALL MOTION: NORMAL DOPPLER/COLOR FLOW: NORMAL COMMENTS: 1. MILD AORTIC SCLEROSIS - NO STENOSIS. 2. MITRAL ANNULAR CALCIFICATION 3. NORMAL LEFT VENTRICULAR SIZE AND FUNCTION 4. NO EFFUSION TECHNOLOGIST: DEVI GOOD
== END 2022-12-28 16:07 ==
LOC: ER 18:53 → 4TH 20:44
PROVIDERS: ADMIT Internal Medicine; ATTEND Internal Medicine
DX: R56.9 Unspecified convulsions (principal); R55 Syncope and collapse; N17.9 Acute kidney failure, unspecified; F03.90 Unspecified dementia, unspecified severity, without behavioral disturbance, psychotic disturbance, mood disturbance, and anxiety; E11.9 Type 2 diabetes mellitus without complications; E03.9 Hypothyroidism, unspecified; K21.9 Gastro-esophageal reflux disease without esophagitis; E78.5 Hyperlipidemia, unspecified; Z88.2 Allergy status to sulfonamides
CPT/HCPCS: 93005; 93306; 85025 ×2; 80048 ×2; 36415; 83735; 82550; 85610; 80061; 82947 ×3; 80076; 84443; 83036; 84484 ×3; 84439; 83880; 70450; 72125; 71045; 93880; 96360; 99285; J0360; J1650; J7040; J7030 ×2; G0378

== ENCOUNTER → 2023-06-28 | Emergency (ER) | payer OTHER ==
[~2023-06-28] MED LIST: CEPHALEXIN 250 MG CAP ONE
[2023-06-28 20:49] LABS: Absolute Lymphocytes (CBC) 2.5 K/uL (0.7-4.9); Hematocrit 36.8 % (36.0-45.0); Lymphocytes % 20.8 % (15.3-44.8); MCV 95.1 fL (80-100); MPV 8.3 fL (7.6-11.3); Platelets 168 thou/uL (152-406); RBC Red Blood Cell Count 3.87 M/uL (3.86-4.86)
[2023-06-28 21:10] LABS: Albumin 2.7 g/dL (3.4-5.0); Bilirubin Total 0.7 mg/dL (0.2-1.0); Protein, Total 7.7 g/dL (6.4-8.2); Troponin High Sensitivity 8.9 pg/mL (<58.9)
--- NOTE | 2023-06-28 21:13 | RAD REPORT ---
[facility]26 [facility] CLINICAL HISTORY: eval for pna COMPARISON: Chest Single View dated 12/27/2022; Chest Single View dated 07/23/2019; Chest Single View dated 06/02/2019; Chest Single View dated 10/22/2018 TECHNIQUE: Portable AP view of the chest. FINDINGS: The lungs are clear. No pneumothorax or effusion. The cardiomediastinal contours are unre markable. IMPRESSION: No acute cardiopulmonary process.
[2023-06-28 21:15] LABS: Potassium 4.9 mEq/L (3.5-5.1)
--- NOTE | 2023-06-28 21:25 | RAD REPORT ---
EXAM DESCRIPTION: CT - Head Brain Wo Cont - 06/28/2023 9:09 pm CLINICAL HISTORY: AMS COMPARISON: Head Brain Wo Cont dated 03/08/2023; Head Brain Wo Cont dated 01/09/2021 TECHNIQUE: Noncontrast head CT images were obtained without IV contrast. Multiplanar reformats were generated and reviewed. All CT scans are performed using dose optimization technique as appropriate and may include automated exposure control or mA/KV adjustment according to patient size. FINDINGS: No intracranial hemorrhage, mass, or edema. Midline structures are unremarkable. Moderate diffuse parenchymal volume loss, with stable ventricular caliber. Patchy periventricular and deep white matter hypodensities, stable, and nonspecific. These are sugges tive of chronic small vessel ischemic changes. Palacio-white matter differentiation is preserved, without evidence of acute infarct. No abnormal extra- axial fluid collections. Mastoid air cells are well aerated. Mild mucosal thickening with air-fluid levels in the sphenoid and left maxillary sinuses. No acute bony findings. IMPRESSION: No evidence of an acute intracranial process. Paranasal sinus mucosal thickening with air-fluid levels. Please correlate clinically for evidence of acute sinusitis. Other stable chronic findings as above.
[2023-06-28 22:54] LABS: Specific Gravity 1.018 (1.005-1.030); Urine Bacteria <20 /HPF (<20); Urine Bilirubin NEGATIVE (Negative); Urine Blood Negative (Negative); Urine Clarity Extremely Turbid (Clear); Urine Color Light-Yellow (Yellow); Urine Crystals Unidentified Few /HPF (None Seen); Urine Glucose NEGATIVE (Negative); Urine Mucus Slight /HPF (None Seen); Urine Protein TRACE (Negative); Urine RBC <5 /HPF (None Seen); Urine Urobilinogen Normal (Normal); Urine WBC Clump Occasional /HPF (None Seen); Urine pH 6.5 (5.0-7.0)
--- NOTE | 2023-06-28 23:04 | ER ---
Nurse's Notes [facility] Name: Hadley Landaverde Age: 83 yrs Sex: Female : 1940 Arrival Date: 06/28/2023 Time: 19:34 Bed 20 Private MD: Diagnosis: UTI/ Urinary tract infection, site not specified Presentation: 06/28 19:37 Chief complaint: EMS states: [facility] staff called reporting pt was unresponsive. jb4 Upon EMS arrival Pt was responsive to pain and A\T\Ox1. Pt is currently responsive to verbal stimuli and A\T\Ox2. Denies N/V, pain, or SOB. 12 lead shows SR. BGL was 226. Coronavirus screen: At this time, the client does not indicate any symptoms associated with coronavirus-19. Ebola Screen: No symptoms or risks identified at this time. Initial Sepsis Screen: Does the patient meet any 2 criteria? No. Patient's initial sepsis screen is negative. Does the patient have a suspected source of infection? No. Patient's initial sepsis screen is negative. Risk Assessment: Do you want to hurt yourself or someone else? Patient reports no desire to harm self or others. Onset of symptoms was June 28, 2023. Transition of care: patient was not received from another setting of care. 19:37 Method Of Arrival: EMS: [facility] jb4 19:37 Acuity: RACHEL 3 jb4 Historical: - Allergies: 19:39 Sulfa (Sulfonamide Antibiotics); jb4 - PMHx: 19:39 Dementia; Diabetes - NIDDM; Hypertension; allergies; Hypothyroidism; GERD; Gout; jb4 - Immunization history:: Adult Immunizations up to date. - Social history:: Smoking status: Patient denies any tobacco usage or history of. Screenin:45 [facility] ED Fall Risk Assessment (Adult) History of falling in the last 3 months, nw1 including since admission Yes- fall prone (multiple falls) (3 pts) Confusion or Disorientation Yes (5 pts) Intoxicated or Sedated No (0 pts) Impaired Gait Yes (1 pt) Mobility Assist Device Used Yes (1 pt) Altered Elimination Yes (1 pt) Score/Fall Risk Level 3 or more points = High Risk Oriented to surroundings, Maintained a safe environment, Educated pt \T\ family on fall prevention, incl call for assistance when getting out of bed, Assessed \T\ reinforced patient's understanding of fall precautions, Provided non-skid footwear, Hourly rounding (assess needs \T\ fall precautionary measures) done, Used ambulatory aids as needed (educated on \T\ assisted with). Abuse screen: Denies threats or abuse. Denies injuries from another. Nutritional screening: No deficits noted. Tuberculosis screening: No symptoms or risk factors identified. Assessment: 20:34 Reassessment: Report received from BRAYAN Mckeon. Assumed care at this time. Pt noted in nw1 bed, responding appropriately with noted confusion. Flat affect noted. Call light at bedside. 0 s/s of acute distress noted at this time. Pt placed into gown and blood obtained via IV placed in right forearm. Pt denies needs/wants at this time. 20:34 Pain: Denies pain. Neuro: Level of Consciousness is awake, alert, obeys commands, nw1 confused, Oriented to person, place, Denies weakness blurred vision dizziness, difficulty swallowing, paresthesias numbness headache photophobia diplopia. Cardiovascular: Denies chest pain, diaphoresis, fatigue, lightheadedness, nausea, palpitations, shortness of breath, syncope, vomiting, Heart tones present Capillary refill < 3 seconds Rhythm is sinus rhythm. Respiratory: Airway is patent Trachea midline Respiratory effort is even, unlabored, Respiratory pattern is regular, symmetrical. GI: No signs and/or symptoms were reported involving the gastrointestinal system. Abdomen is non-distended, Bowel sounds present X 4 quads. Abd is soft and non tender. Musculoskeletal: generalized weakness, unknown if baseline. 20:34 Derm: Skin is pale. nw1 22:45 Reassessment: Incontinent care provided. Noted large soft formed BM. Pt able to rotate nw1 and turn body. Diaper changed and sterile in and out performed for urine sample. Pt tolerated well. 0 s/s of acute distress at this time. 23:28 Reassessment: Per [facility]enu at [facility], unable to arrange transport at this time. State nw1 pt will not be able to leave until morning. Notified charge nurse BRAYAN Mckeon. Vital Signs: 19:37 BP 140 / 71; Pulse 80; Resp 16; Temp 97.7(O); Pulse Ox 100% on R/A; Weight 80.74 kg jb4 (M); Pain 0/10; 20:00 BP 140 / 70; Pulse 77; Resp 15; Pulse Ox 99% on R/A; nw1 20:30 BP 166 / 76; Pulse 83; Resp 15; Pulse Ox 100% on R/A; nw1 20:45 BP 148 / 72; Pulse 78; Resp 15; Pulse Ox 99% on R/A; nw1 19:37 Pain Scale: Adult jb4 Sisi Coma Score: 20:45 Eye Response: spontaneous(4). Motor Response: obeys commands(6). Verbal Response: nw1 confused(4). Total: 14. ED Course: 19:36 Patient arrived in ED. jb4 19:39 Triage completed. jb4 19:39 Arm band placed on right wrist. jb4 20:00 Sanjiv Jackson, BRAYAN is Primary Nurse. jb4 20:01 Aly Gonzalez MD is Attending Physician. ec2 20:28 CXR XRAY In Process Unspecified. EDMS 20:38 No provider procedures requiring assistance completed. Inserted saline lock: 20 gauge nw1 in right forearm, using aseptic technique. Blood collected. 20:39 Zeny Rodriguez, RN is Primary Nurse. nw1 20:39 UAM Sent. nw1 20:39 Troponin HS Sent. nw1 20:39 CMP Sent. nw1 20:39 CBC with Diff Sent. nw1 20:45 Patient has correct armband on for positive identification. Placed in gown. Bed in low nw1 position. Call light in reach. Side rails up X2. Provided Education on: POC. Noise minimized. Warm blanket given. 20:45 Client placed on continuous cardiac and pulse oximetry monitoring. NIBP monitoring nw1 applied. nuclear monitoring technician on. Pulse ox on. NIBP on. 21:10 CT Head Brain wo Cont In Process Unspecified. EDMS 23:17 Urine Culture Sent. nw1 Administered Medications: 23:17 Drug: Cephalexin PO 500 mg PO once Route: PO; nw1 Medication: 20:45 VIS not applicable for this client. nw1 Outcome: 23:03 Discharge ordered by . ec2 23:11 Discharged to intermediate. Report called to BLADE Lea nw1 23:11 Condition: stable 23:11 Discharge instructions given to intermediate, Venu Instructed on discharge instructions, medication usage, Demonstrated understanding of instructions, medications, Prescriptions given X 1, 23:50 Patient left the ED. jb4 Signatures: Dispatcher [employer] Sanjiv Liriano RN RN jb4 Aly Gonzalez MD MD ec2 Zeny Rodriguez, BRAYAN RN nw1 Corrections: (The following items were deleted from the chart) 23:01 22:59 Reassessment: Incontinent care provided. Noted large soft formed BM. Pt able to nw1 rotate and turn body. Diaper changed and sterile in and out performed for urine sample. Pt tolerated well. 0 s/s of acute distress at this time. nw1
--- NOTE | 2023-06-28 23:04 | EDPHYS ---
Physician Documentation [facility] Name: Hadley Landaverde Age: 83 yrs Sex: Female : 1940 Arrival Date: 06/28/2023 Time: 19:34 Bed 20 Private MD: ED Physician Aly Gonzalez HPI: 06/28 20:38 This 83 yrs old Female presents to ER via EMS with complaints of AMS. ec2 20:38 Patient arrives today for evaluation of altered mental status. Patient with history of ec2 dementia, patient has no specific complaints, history gathered [facility] EMS [facility] Patient reports no pain, denies any head injuries, denies any vomiting, denies diarrhea, denies urinary complaints.. Historical: - Allergies: 19:39 Sulfa (Sulfonamide Antibiotics); jb4 - PMHx: 19:39 Dementia; Diabetes - NIDDM; Hypertension; allergies; Hypothyroidism; GERD; Gout; jb4 - Immunization history:: Adult Immunizations up to date. - Social history:: Smoking status: Patient denies any tobacco usage or history of. ROS: 20:38 Constitutional: as per hpi ec2 Exam: 20:38 Constitutional: GEN: NAD Head: atraumatic Eyes: EOMI Ears: External ears are ec2 normal. CV: regular rate LUNGS: no respiratory distress ABD: non-distended, soft, nontender, no guarding, not rigid SKIN: no evidence of rashes MSK: no evidence of trauma NEURO: moves all extremities equally, well-appearing, confused Vital Signs: 19:37 BP 140 / 71; Pulse 80; Resp 16; Temp 97.7(O); Pulse Ox 100% on R/A; Weight 80.74 kg jb4 (M); Pain 0/10; 20:00 BP 140 / 70; Pulse 77; Resp 15; Pulse Ox 99% on R/A; nw1 20:30 BP 166 / 76; Pulse 83; Resp 15; Pulse Ox 100% on R/A; nw1 20:45 BP 148 / 72; Pulse 78; Resp 15; Pulse Ox 99% on R/A; nw1 19:37 Pain Scale: Adult jb4 Brooks Coma Score: 20:45 Eye Response: spontaneous(4). Motor Response: obeys commands(6). Verbal Response: nw1 confused(4). Total: 14. MDM: 20:13 Patient medically screened. ec2 20:38 Data reviewed: vital signs. ED course: Patient arrives today for evaluation of ec2 confusion. Examination remarkable for well-appearing nontoxic individual is otherwise in no acute distress with a reassuring examination. Will obtain lab work, urine studies, reassess the patient. Currently considering UTI, electrolyte disturbances, will suspicion for ACS or PE, low suspicion for brain bleed.. 21:20 ED course: CBC is reassuring, metabolic profile with renal dysfunction noted with a ec2 creatinine 1.19 and GFR 45. Troponin within normal ranges. Chest x-ray shows no acute intrathoracic process. . 21:30 ED course: CT scan of the head shows no acute intracranial abnormality.. ec2 21:52 ED course: EKG independently reviewed and interpreted by me, shows normal sinus rhythm, ec2 rate of 80, no acute ST segment elevations, nonconcerning intervals. 23:03 ED course: Urine is infectious appearing, will start on antibiotics and discharge.. ec2 06/28 20:17 Order name: CBC with Diff; Complete Time: 21:20 ec2 06/28 20:17 Order name: CMP; Complete Time: 21:20 ec2 06/28 20:17 Order name: Troponin HS; Complete Time: 21:20 ec2 06/28 20:17 Order name: UAM; Complete Time: 23:03 ec2 06/28 22:57 Order name: Urine Culture EDMS 06/28 20:17 Order name: CXR XRAY; Complete Time: 21:20 ec2 06/28 20:40 Order name: CT Head Brain wo Cont; Complete Time: 21:29 ec2 06/28 20:17 Order name: EKG; Complete Time: 20:17 ec2 06/28 20:17 Order name: EKG - Nurse/Tech; Complete Time: 22:14 ec2 06/28 22:11 Order name: Cath; Complete Time: 22:47 ec2 Administered Medications: 23:17 Drug: Cephalexin PO 500 mg PO once Route: PO; nw1 Disposition Summary: 06/28/23 23:03 Discharge Ordered Notes: Location: Home ec2 Condition: Stable ec2 Diagnosis - UTI/ Urinary tract infection, site not specified ec2 Followup: ec2 - With: Private Physician - When: - Reason: Recheck today's complaints Discharge Instructions: - Discharge Summary Sheet ec2 - Urinary Tract Infection, Adult, [id number] ec2 Forms: - Medication Reconciliation Form ec2 - Thank You Letter ec2 - Antibiotic Education ec2 - Prescription Opioid Use ec2 - Patient Portal Instructions ec2 - Leadership Thank You Letter ec2 Prescriptions: - Cephalexin 500 mg Oral capsule - take 1 capsule ORAL route every 12 hours for 5 days; 10 capsule; Refills: 0, ec2 Product Selection Permitted Signatures: Dispatcher [employer] Sanjiv Liriano, RN RN jb4 Aly Gonzalez MD MD ec2 Zeny Rodriguez RN RN nw1
[2023-06-29 02:42] VITALS: TEMP 97.7
[2023-06-29 02:57] VITALS: BP 148/72; O2SAT 99
== END ==
LOC: ER 19:34
DX: N39.0 Urinary tract infection, site not specified (principal); I10 Essential (primary) hypertension; F03.90 Unspecified dementia, unspecified severity, without behavioral disturbance, psychotic disturbance, mood disturbance, and anxiety; Z88.2 Allergy status to sulfonamides
CPT/HCPCS: 36415; 70450; 71045; 80053; 81001; 84484; 85025; 87086; 87088; 93005